=== PATIENT | male | born 1970 | race Caucasian/White ===

== ENCOUNTER 2018-05-27 08:46 | Emergency (ER) | payer SELFPAY ==
--- NOTE | 2018-05-27 09:11 | EDPHYS ---
Physician Documentation [facility] Name: Parth Jerez Age: 48 yrs Sex: Male : 1970 Arrival Date: 05/27/2018 Time: 08:48 Bed 5 Private MD: None, None ED Physician Ramses Zarate HPI: 05/27 09:29 This 48 yrs old Male presents to ER via Ambulatory with complaints of Cough, snw Ear Pain. 09:29 The patient or guardian reports cough, described as moderate, described as severe, with snw productive sputum. Onset: The symptoms/episode began/occurred suddenly, 1 day(s) ago, and became worse and became persistent. Severity of symptoms: At their worst the symptoms were moderate. Associated signs and symptoms: Pertinent positives: earache, lightheadedness. The patient has experienced similar episodes in the past. The patient has not recently seen a physician. Historical: - Allergies: 09:02 NKDA; ch - Home Meds: 09:02 None [Active]; ch - PMHx: :02 Pneumothorax; ruptured L upper lung when 19, had it removed; fall 30 feet, fx to L4L5; ch Back pain; - PSHx: 09:02 L4L5 fusion; L upper lobe removed; ch - Immunization history:: Adult Immunizations up to date, Last tetanus immunization: up to date Flu vaccine is not up to date. - Social history:: Smoking status: Patient uses tobacco products, smokes one pack cigarettes per day. Patient/guardian denies using alcohol, street drugs. - Ebola Screening: : Patient negative for fever greater than or equal to 101.5 degrees Fahrenheit, and additional compatible Ebola Virus Disease symptoms Patient denies exposure to infectious person Patient denies travel to an Ebola-affected area in the 21 days before illness onset No symptoms or risks identified at this time. ROS: 09:28 Constitutional: Negative for fever, chills, and weight loss, Eyes: Negative for injury, snw pain, redness, and discharge, Neck: Negative for injury, pain, and swelling, Cardiovascular: Negative for chest pain, palpitations, and edema, Abdomen/GI: Negative for abdominal pain, nausea, vomiting, diarrhea, and constipation, Back: Negative for injury and pain, : Negative for injury, bleeding, discharge, and swelling, MS/Extremity: Negative for injury and deformity, Skin: Negative for injury, rash, and discoloration, Neuro: Negative for headache, weakness, numbness, tingling, and seizure, Psych: Negative for depression, anxiety, suicide ideation, homicidal ideation, and hallucinations. 09:28 ENT: Positive for ear pain. 09:28 Respiratory: Positive for cough, shortness of breath, on exertion. wheezing. Exam: 09:25 Constitutional: This is a well developed, well nourished patient who is awake, alert, snw and in no acute distress. Head/Face: Normocephalic, atraumatic. Eyes: Pupils equal round and reactive to light, extra-ocular motions intact. Lids and lashes normal. Conjunctiva and sclera are non-icteric and not injected. Cornea within normal limits. Periorbital areas with no swelling, redness, or edema. 09:25 Neck: Trachea midline, no thyromegaly or masses palpated, and no cervical lymphadenopathy. Supple, full range of motion without nuchal rigidity, or vertebral point tenderness. No Meningismus. Chest/axilla: Normal chest wall appearance and motion. Nontender with no deformity. No lesions are appreciated. Cardiovascular: Regular rate and rhythm with a normal S1 and S2. No gallops, murmurs, or rubs. Normal PMI, no JVD. No pulse deficits. 09:25 Abdomen/GI: Soft, non-tender, with normal bowel sounds. No distension or tympany. No guarding or rebound. No evidence of tenderness throughout. Back: No spinal tenderness. No costovertebral tenderness. Full range of motion. Skin: Warm, dry with normal turgor. Normal color with no rashes, no lesions, and no evidence of cellulitis. MS/ Extremity: Pulses equal, no cyanosis. Neurovascular intact. Full, normal range of motion. Neuro: Awake and alert, GCS 15, oriented to person, place, time, and situation. Cranial nerves II-XII grossly intact. Motor strength 5/5 in all extremities. Sensory grossly intact. Cerebellar exam normal. Normal gait. 09:25 ENT: Ear canal(s): are normal, TM's: erythema, that is moderate, bilaterally, Nose: is normal, Mouth: is normal, Posterior pharynx: erythema, that is moderate, Voice: is normal. 09:25 Respiratory: the patient does not display signs of respiratory distress, Respirations: shallow respirations, Breath sounds: bronchial sounds, rhonchi, wet sounding cough. Vital Signs: 09:02 BP 129 / 89; Pulse 67; Resp 16; Temp 98.5(O); Pulse Ox 98% on R/A; Weight 136.08 kg; ch Height 6 ft. 2 in. (187.96 cm); Pain 6/10; 09:02 Body Mass Index 38.52 (136.08 kg, 187.96 cm) ch MDM: 09:10 Patient medically screened. snw 09:28 Data reviewed: vital signs, nurses notes. Data interpreted: Pulse oximetry: on room air snw is 98 %. Interpretation: normal. Counseling: I had a detailed discussion with the patient and/or guardian regarding: the historical points, exam findings, and any diagnostic results supporting the discharge/admit diagnosis, the presence of at least one elevated blood pressure reading (>120/80) during this emergency department visit, the need for outpatient follow up, to return to the emergency department if symptoms worsen or persist or if there are any questions or concerns that arise at home. Special discussion: I have referred the patient to see his PCP for further evaluation of high blood pressure. Based on the history and exam findings, there is no indication for further emergent testing or inpatient evaluation. I discussed with the patient/guardian the need to see the primary care provider for further evaluation of the symptoms. Administered Medications: 09:25 Drug: Rocephin (cefTRIAXone) 1 grams Route: IM; Site: right deltoid; sg :25 Drug: Zithromax 500 mg Route: PO; sg 09:31 Drug: Decadron 10 mg Route: PO; sg 09:31 Drug: Albuterol 2.5 mg Route: Inhalation; sg 09:32 Drug: Tussionex Pennkinetic ER 5 ml Route: PO; sg Disposition: 10:44 Co-signature as Attending Physician, Ramses Zarate MD I agree with the assessment and kdr plan of care. Disposition: 05/27/18 09:10 Discharged to Home. Impression: Unspecified bacterial pneumonia, Otitis media, unspecified, left ear. - Condition is Stable. - Discharge Instructions: Otitis Media, Adult, Hypertension, Community-Acquired Pneumonia, Adult, Steps to Quit Smoking. - Prescriptions for Tessalon Perles 100 mg Oral Capsule - take 1 capsule by ORAL route every 8 hours As needed; 15 capsule. Albuterol Sulfate 90 mcg/actuation - inhale 1-2 puff by INHALATION route every 4-6 hours; 1 Inhaler. Zithromax 500 mg Oral Tablet - take 1 tablet by ORAL route once daily for 5 days; 5 tablet. - Work release form, Medication Reconciliation Form, Thank You Letter, Antibiotic Education, Prescription Opioid Use form. - Follow up: Private Physician; When: 2 - 3 days; Reason: Recheck today's complaints, Continuance of care, Re-evaluation by your physician. Follow up: Emergency Department; When: As needed; Reason: Worsening of condition. Signatures: Zuleima Gomez RN RN Crow Baez RN RN sg Rasmes Zarate MD MD [facility] Giovanna Garcia, [employer]C [employer] Corrections: (The following items were deleted from the chart) 09:48 09:10 05/27/2018 09:10 Discharged to Home. Impression: Unspecified bacterial pneumonia; sg Otitis media, unspecified, left ear. Condition is Stable. Forms are Medication Reconciliation Form, Thank You Letter, Antibiotic Education, Prescription Opioid Use. Follow up: Private Physician; When: 2 - 3 days; Reason: Recheck today's complaints, Continuance of care, Re-evaluation by your physician. Follow up: Emergency Department; When: As needed; Reason: Worsening of condition. snw
--- NOTE | 2018-05-27 09:11 | ER ---
Nurse's Notes [facility] Name: Parth Jerez Age: 48 yrs Sex: Male : 1970 Arrival Date: 05/27/2018 Time: 08:48 Bed 5 Private MD: None, None Diagnosis: Unspecified bacterial pneumonia;Otitis media, unspecified, left ear Presentation: 05/27 08:58 Presenting complaint: Patient states: I think I have walking pneumonia, I feel crud in my chest, couging up some thick mucous for the past 2-3 days. last night started getting pain in my L ear, both ears feel very full, and I feel off balance. Transition of care: patient was not received from another setting of care. Onset of symptoms was May 23, 2018. Risk Assessment: Do you want to hurt yourself or someone else? Patient reports no desire to harm self or others. Initial Sepsis Screen: Does the patient meet any 2 criteria? No. Patient's initial sepsis screen is negative. Does the patient have a suspected source of infection? No. Patient's initial sepsis screen is negative. Care prior to arrival: None. 08:58 Method Of Arrival: Ambulatory 08:58 Acuity: [place] 3 Triage Assessment: 09:02 General: Appears in no apparent distress. comfortable, Behavior is calm, cooperative, appropriate for age. Pain: Complains of pain in left ear, left jaw, diaphragm, xyphoid area and left lateral aspect of neck Pain currently is 7 out of 10 on a pain scale. EENT: Reports pain in left ear. Historical: - Allergies: 09:02 NKDA; - Home Meds: 09:02 None [Active]; - PMHx: 09:02 Pneumothorax; ruptured L upper lung when 19, had it removed; fall 30 feet, fx to L4L5; Back pain; - PSHx: 09:02 L4L5 fusion; L upper lobe removed; - Immunization history:: Adult Immunizations up to date, Last tetanus immunization: up to date Flu vaccine is not up to date. - Social history:: Smoking status: Patient uses tobacco products, smokes one pack cigarettes per day. Patient/guardian denies using alcohol, street drugs. - Ebola Screening: : Patient negative for fever greater than or equal to 101.5 degrees Fahrenheit, and additional compatible Ebola Virus Disease symptoms Patient denies exposure to infectious person Patient denies travel to an Ebola-affected area in the 21 days before illness onset No symptoms or risks identified at this time. Screenin:15 Nutritional screening: No deficits noted. sg 09:15 Abuse screen: Denies threats or abuse. Denies injuries from another. Tuberculosis sg screening: No symptoms or risk factors identified. Never had TB. Fall Risk None identified. Assessment: 09:15 General: Appears in no apparent distress. comfortable, well groomed, well developed, sg well nourished, Behavior is calm, cooperative, appropriate for age. Pain: Complains of pain in back and diaphragm Quality of pain is described as burning. Neuro: Level of Consciousness is awake, alert, obeys commands, Oriented to person, place, time, Speech is normal, Facial symmetry appears normal. Cardiovascular: Heart tones S1 S2 present Capillary refill is brisk in bilateral fingers Patient's skin is warm and dry. Respiratory: Airway is patent Respiratory effort is even, unlabored, Respiratory pattern is regular, symmetrical, Breath sounds are coarse. Respiratory: Reports shortness of breath on exertion cough that is productive. GI: Abdomen is round non-distended, obese. : No signs and/or symptoms were reported regarding the genitourinary system. EENT: No signs and/or symptoms were reported regarding the EENT system. Derm: Skin is pink, warm \T\ dry. Musculoskeletal: No signs and/or symptoms reported regarding the musculoskeletal system. Vital Signs: 09:02 BP 129 / 89; Pulse 67; Resp 16; Temp 98.5(O); Pulse Ox 98% on R/A; Weight 136.08 kg; ch Height 6 ft. 2 in. (187.96 cm); Pain 6/10; 09:02 Body Mass Index 38.52 (136.08 kg, 187.96 cm) ED Course: 08:48 Patient arrived in ED. mr 08:49 None, None is Private Physician. mr 08:53 Crow Baez, CATHLEEN is Primary Nurse. sg 08:59 Giovanna Gracia FNP-C is PHCP. snw 08:59 Ramses Zarate MD is Attending Physician. snw 09:01 Triage completed. ch 09:02 Arm band placed on left wrist. Patient placed in an exam room, on a stretcher. ch 09:15 No provider procedures requiring assistance completed. Patient did not have IV access sg during this emergency room visit. Administered Medications: 09:25 Drug: Rocephin (cefTRIAXone) 1 grams Route: IM; Site: right deltoid; 09:25 Drug: Zithromax 500 mg Route: PO; 09:31 Drug: Decadron 10 mg Route: PO; 09:31 Drug: Albuterol 2.5 mg Route: Inhalation; 09:32 Drug: Tussionex Pennkinetic ER 5 ml Route: PO; Outcome: 09:10 Discharge ordered by MD. carbajal 09:48 Patient left the ED. Signatures: Zuleima Gomez, RN RN Crow Baez RN RN Giovanna Garcia, HOST AND HOSTESS-C [employer]OST [employer]OSTESS-Csnw Sloane Rodrigez
[2018-05-27] MEDS ORDERED: DEXAMETHASONE 4 MG TAB ONE (09:19)
[2018-05-27] MEDS ORDERED: ALBUTEROL 2.5 MG/3 ML NEB SOL ONE (09:19)
[2018-05-27] MEDS ORDERED: AZITHROMYCIN 250 MG TAB ONE (09:19)
[2018-05-27] MEDS ORDERED: LIDOCAINE 1% MPF 2 ML AMPULE ONE (09:20)
[2018-05-27] MEDS ORDERED: HYDROCODONE/CHLORPHEN 5 ML/OSYR ONE (09:20)
[2018-05-27] MEDS ORDERED: CEFTRIAXONE 1000 MG/VIAL ONE (09:20)
[2018-05-27 09:53] VITALS: BP 129/89; TEMP 98.5; O2SAT 98
== END 2018-05-27 09:48 | disposition home or self-care (01) ==
LOC: ER 08:46
DX: H66.92 Otitis media, unspecified, left ear (principal); J15.9 Unspecified bacterial pneumonia; F17.210 Nicotine dependence, cigarettes, uncomplicated
CPT/HCPCS: 96372; 99284; J2001

== ENCOUNTER 2018-09-10 15:05 | Emergency (ER) | payer SELFPAY ==
[2018-09-10] MEDS ORDERED: MORPHINE 4 MG/ML SYR ONE (16:16)
[2018-09-10 16:23] LABS: Absolute Monocytes 0.7 K/uL (0.1-1.3); Absolute Neutrophil 4.7 K/uL (1.8-8.0); Eosinophils % 2.9 % (0-4.4); Hematocrit 44.2 % (39.6-49.0); Lymphocytes % 26.4 % (15.3-44.8); MCH 30.5 pg (27.0-35.0); MCV 87.7 fL (80-100); MPV 9.2 fL (7.6-11.3); Monocytes % 8.8 % (3.3-12.3); RBC Red Blood Cell Count 5.04 M/uL (4.33-5.43)
--- NOTE | 2018-09-10 16:33 | RAD REPORT ---
EXAM DESCRIPTION: Tyra Peterson (2 Views)09/10/2018 4:24 pm CLINICAL HISTORY: Chest pain COMPARISON: September 2017 FINDINGS: The lungs appear clear of acute infiltrate. The heart is normal size IMPRESSION: No acute abnormalities displayed
[2018-09-10 16:43] LABS: BUN Blood Urea Nitrogen 13 mg/dL (7-18); Bicarbonate 26 mmol/L (21-32); Glucose Level 105 mg/dL (74-106); Magnesium 2.1 mg/dL (1.8-2.4); NT PRO-BNP 6 pg/mL (<125); Potassium 3.9 mmol/L (3.5-5.1); Sodium Level 140 mmol/L (136-145); Troponin (Emerg Dept Use Only) < 0.02 ng/mL (0.0-0.045)
[2018-09-10] MEDS ORDERED: MEPERIDINE HCL 50 MG/ML AMP ONE (17:07)
--- NOTE | 2018-09-10 17:30 | RAD REPORT ---
EXAM DESCRIPTION: CT - Chest For Pe Angio - 09/10/2018 5:20 pm CLINICAL HISTORY: Chest pain COMPARISON: 2015 TECHNIQUE: Dynamically enhanced axial 3 mm thick images of the chest were obtained during administra tion of <100> mL Isovue 370 IV contrast. Coronal and oblique reconstruction images were generated and reviewed. Exam utilizes a protocol for optimal evaluation of pulmonary arterial tree. Maximum intensity projections 3D imaging was utilized All CT scans are performed using dose optimization technique as appropriate and may include automated exposure control or mA/KV adjustment according to patient size. FINDINGS: A pulmonary embolus is not seen. A thoracic aortic aneurysm is not noted. A pleural effusion is not seen. A pericardial effusion is not seen. A lung consolidation is not present. IMPRESSION: Negative for a pulmonary embolism.
--- NOTE | 2018-09-10 17:54 | EDPHYS ---
Physician Documentation [facility] Name: Parth Jerez Age: 48 yrs Sex: Male : 1970 Arrival Date: 09/10/2018 Time: 15:07 Bed 14 Private MD: ED Physician Franklin Shah HPI: 09/10 16:22 This 48 yrs old Male presents to ER via Ambulatory with complaints of rn Breathing Difficulty. 16:22 The patient or guardian reports chest pain that is located primarily in the anterior rn chest wall, left. Onset: this morning. The pain does not radiate. The chest pain is described as sharp, stabbing. Modifying factors: The symptoms are alleviated by nothing. the symptoms are aggravated by activity, deep breath. Severity of pain: At its worst the pain was moderate in the emergency department the pain is unchanged. The patient has experienced a previous episode. Reports left sided chest pain, "feels like when [he] had pleurisy", no fever, + smoker, no trauma, hurts to take deep breath and move. . Historical: - Allergies: 15:18 NKDA; aa5 - PMHx: 15:18 Back pain; fall 30 feet, fx to L4L5; Pneumothorax; ruptured L upper lung when 19, had aa5 it removed; - PSHx: 15:18 L4L5 fusion; L upper lobe removed; aa5 - Immunization history:: Flu vaccine is not up to date. - Social history:: Smoking status: Patient uses tobacco products, 4-5 cigarettes a day . - Ebola Screening: : No symptoms or risks identified at this time. - Family history:: not pertinent. - Hospitalizations: : No recent hospitalization is reported. ROS: 16:22 Constitutional: Negative for fever, chills, and weight loss, Eyes: Negative for injury, rn pain, redness, and discharge, Cardiovascular: + chest pain Respiratory: + pleuritic chest pain Abdomen/GI: Negative for abdominal pain, nausea, vomiting, diarrhea, and constipation, MS/Extremity: Negative for injury and deformity, Skin: Negative for injury, rash, and discoloration, Neuro: Negative for headache, weakness, numbness, tingling, and seizure. Exam: 16:22 Constitutional: This is a well developed, well nourished patient who is awake, alert, rn appears uncomfortable, splinting left side Head/Face: Normocephalic, atraumatic. Eyes: Pupils equal round and reactive to light, extra-ocular motions intact. Lids and lashes normal. Conjunctiva and sclera are non-icteric and not injected. Cornea within normal limits. Periorbital areas with no swelling, redness, or edema. Cardiovascular: Regular rate and rhythm with a normal S1 and S2. No gallops, murmurs, or rubs. Normal PMI, no JVD. No pulse deficits. Respiratory: Lungs have equal breath sounds bilaterally, clear to auscultation, no wheezing, + splinting left side Abdomen/GI: soft, non-tender MS/ Extremity: Pulses equal, no cyanosis. Neurovascular intact. Full, normal range of motion. Equal circumference. Neuro: Awake and alert, GCS 15, oriented to person, place, time, and situation. Cranial nerves II-XII grossly intact. Motor strength 5/5 in all extremities. Sensory grossly intact. Vital Signs: 15:19 BP 141 / 85; Pulse 77; Resp 20 S; Temp 99.0(O); Pulse Ox 96% on R/A; Weight 129.73 kg aa5 (R); Height 6 ft. 2 in. (187.96 cm) (R); Pain 10/10; 16:15 BP 128 / 82; Pulse 72; Resp 14; Pulse Ox 96% on R/A; bp 17:02 BP 126 / 87; Pulse 76; Resp 14; Pulse Ox 97% ; bp 15:19 Body Mass Index 36.72 (129.73 kg, 187.96 cm) aa5 MDM: 15:22 Patient medically screened. rn 17:50 Differential diagnosis: acute pericarditis, anxiety, coronary artery disease chest wall rn pain, costochondritis, gastroesophageal reflux disease (GERD), pancreatitis, pericarditis, pleurisy, pneumonia, pneumothorax, pulmonary embolus. Data reviewed: vital signs, nurses notes, lab test result(s), EKG, radiologic studies, CT scan, plain films, and as a result, I will discharge patient. Counseling: I had a detailed discussion with the patient and/or guardian regarding: the historical points, exam findings, and any diagnostic results supporting the discharge/admit diagnosis, lab results, radiology results, the need for outpatient follow up, to return to the emergency department if symptoms worsen or persist or if there are any questions or concerns that arise at home. Counseling: I had a detailed discussion with the patient and/or guardian regarding: smoking cessation. Response to treatment: the patient's symptoms have markedly improved after treatment, and as a result, I will discharge patient. Special discussion: I discussed with the patient/guardian in detail that at this point there is no indication for admission to the hospital. It is understood, however, that if the symptoms persist or worsen the patient needs to return immediately for re-evaluation. 09/10 15:29 Order name: Blood Culture Adult (2) rn 09/10 15:29 Order name: BMP; Complete Time: 16:58 rn 09/10 15:29 Order name: CBC with Diff; Complete Time: 16:37 rn 09/10 15:29 Order name: Magnesium; Complete Time: 16:58 rn 09/10 15:29 Order name: NT PRO-BNP; Complete Time: 16:58 09/10 15:29 Order name: Troponin (emerg Dept Use Only); Complete Time: 16:58 rn 09/10 15:29 Order name: XRAY Chest Pa And Lat (2 Views); Complete Time: 16:37 rn 12 15:29 Order name: Flu; Complete Time: 16:58 rn 12 16:58 Order name: CT Chest For PE Angio; Complete Time: 17:34 rn 12 15:29 Order name: EKG; Complete Time: 15:29 rn 09/10 15:29 Order name: Cardiac monitoring; Complete Time: 16:29 rn 09/10 15:29 Order name: EKG - Nurse/Tech; Complete Time: 15:35 rn 09/10 15:29 Order name: IV Saline Lock; Complete Time: 16:29 rn 09/10 15:29 Order name: Labs collected and sent; Complete Time: 16:30 rn 12 15:29 Order name: O2 Per Protocol; Complete Time: 16:30 rn 12 15:29 Order name: O2 Sat Monitoring; Complete Time: 16:30 rn Administered Medications: 15:45 Drug: morphine 4 mg Route: IVP; Site: left wrist; bp 16:29 Follow up: Response: Pain is decreased bp 17:01 Drug: Demerol 50 mg Route: IVP; Site: left wrist; bp 18:23 Follow up: Response: Pain is decreased bp 17:45 Drug: TORadol 30 mg Route: IVP; Site: left wrist; bp 18:25 Follow up: Response: Pain is decreased bp 17:50 Drug: Decadron - Dexamethasone 10 mg Route: IVP; Site: left wrist; bp 18:24 Follow up: Response: Pain is decreased bp 17:50 Drug: Demerol 25 mg Route: IVP; Site: left wrist; bp 18:23 Follow up: Response: Pain is decreased bp Disposition: 09/10/18 17:54 Discharged to Home. Impression: Pleurisy. - Condition is Stable. - Discharge Instructions: Pleurisy. - Prescriptions for Ibuprofen 800 mg Oral Tablet - take 1 tablet by ORAL route every 12 hours As needed take with food; 20 tablet. Tylenol- Codeine #3 300-30 mg Oral Tablet - take 1 tablet by ORAL route every 6 hours As needed; 20 tablet. Medrol (Carlos) 4 mg Oral Tablets, Dose Pack - take 1 tablet by ORAL route as directed - follow package instructions; 1 packet. - Medication Reconciliation Form, Thank You Letter, Antibiotic Education, Prescription Opioid Use form. - Follow up: Private Physician; When: As needed; Reason: Recheck today's complaints, Re-evaluation by your physician. - Problem is new. - Symptoms have improved. Signatures: Dispatcher [employer] EDMS Franklin Shah MD MD rn Calderon, Audri, RN RN aa5 Manjeet Delong RN RN bp Corrections: (The following items were deleted from the chart) 16:26 16:22 Constitutional: This is a well developed, well nourished patient who is awake, rn alert, appears uncomfortable, splinting left side rn 18:36 17:54 09/10/2018 17:54 Discharged to Home. Impression: Pleurisy. Condition is Stable. bp Forms are Medication Reconciliation Form, Thank You Letter, Antibiotic Education, Prescription Opioid Use. Follow up: Private Physician; When: As needed; Reason: Recheck today's complaints, Re-evaluation by your physician. Problem is new. Symptoms have improved. rn
--- NOTE | 2018-09-10 17:54 | ER ---
Nurse's Notes [facility] Name: Parth Jerez Age: 48 yrs Sex: Male : 1970 Arrival Date: 09/10/2018 Time: 15:07 Bed 14 Private MD: Diagnosis: Pleurisy Presentation: 09/10 15:17 Presenting complaint: Patient states: "I just got up to do some dishes and I got this aa5 pain on my left lung and rib cage and I can't take a deep breath because it hurts too bad". Pt reports SOB and cough. Transition of care: patient was not received from another setting of care. Onset of symptoms was September 10, 2018. Risk Assessment: Do you want to hurt yourself or someone else? Patient reports no desire to harm self or others. Initial Sepsis Screen: Does the patient meet any 2 criteria? No. Patient's initial sepsis screen is negative. Does the patient have a suspected source of infection? No. Patient's initial sepsis screen is negative. Care prior to arrival: None. 15:17 Method Of Arrival: Ambulatory aa5 15:17 Acuity: CARMENCITA 2 aa5 Triage Assessment: 18:30 General: Appears in no apparent distress. uncomfortable, Behavior is Smells of. bp Respiratory: Reports pain with respiration Airway is patent Onset: The symptoms/episode began/occurred at an unknown time. the patient has moderate shortness of breath. Historical: - Allergies: 15:18 NKDA; aa5 - PMHx: 15:18 Back pain; fall 30 feet, fx to L4L5; Pneumothorax; ruptured L upper lung when 19, had aa5 it removed; - PSHx: 15:18 L4L5 fusion; L upper lobe removed; aa5 - Immunization history:: Flu vaccine is not up to date. - Social history:: Smoking status: Patient uses tobacco products, 4-5 cigarettes a day . - Ebola Screening: : No symptoms or risks identified at this time. - Family history:: not pertinent. - Hospitalizations: : No recent hospitalization is reported. Screenin:20 Abuse screen: Denies threats or abuse. Denies injuries from another. Nutritional bp screening: No deficits noted. Tuberculosis screening: No symptoms or risk factors identified. Fall Risk None identified. Assessment: 15:20 General: Appears in no apparent distress. uncomfortable, obese, Behavior is calm, bp cooperative, appropriate for age. Pain: Complains of pain in left lateral anterior chest and left lateral posterior chest. Cardiovascular: Rhythm is sinus rhythm. Respiratory: Airway is patent Respiratory effort is even, unlabored, Respiratory pattern is regular, symmetrical, Breath sounds with crackles. GI: No signs and/or symptoms were reported involving the gastrointestinal system. : No signs and/or symptoms were reported regarding the genitourinary system. EENT: No deficits noted. Derm: No deficits noted. Musculoskeletal: Circulation, motion, and sensation intact. Range of motion: intact in all extremities. 16:26 Reassessment: PT RETURNED FROM RAD. ALL CURRENT ORDERS IN PROCESS. bp 17:02 Reassessment: CT PE PENDING, VS STABLE ON MONITOR. bp 18:26 Reassessment: PT D/C HOME AMBULATORY WITH FAMILY, DX WITH PLEURISY. bp Vital Signs: 15:19 BP 141 / 85; Pulse 77; Resp 20 S; Temp 99.0(O); Pulse Ox 96% on R/A; Weight 129.73 kg aa5 (R); Height 6 ft. 2 in. (187.96 cm) (R); Pain 10/10; 16:15 BP 128 / 82; Pulse 72; Resp 14; Pulse Ox 96% on R/A; bp 17:02 BP 126 / 87; Pulse 76; Resp 14; Pulse Ox 97% ; bp 15:19 Body Mass Index 36.72 (129.73 kg, 187.96 cm) aa5 ED Course: 15:07 Patient arrived in ED. mr 15:18 Triage completed. aa5 15:18 Arm band placed on. aa5 15:20 Patient has correct armband on for positive identification. Placed in gown. Bed in low bp position. Call light in reach. Side rails up X2. 15:22 Manjeet Delong, RN is Primary Nurse. bp 15:22 Franklin Shah MD is Attending Physician. rn 15:45 Inserted saline lock: 20 gauge in left wrist, using aseptic technique. Blood collected. bp 16:02 EKG done, by orthodontic laboratory technician. reviewed by Franklin Shah MD. sm3 16:19 XRAY Chest Pa And Lat (2 Views) In Process Unspecified. EDMS 17:20 CT Chest For PE Angio In Process Unspecified. EDMS 17:20 CT completed. Patient tolerated procedure well. Patient moved to CT. Patient moved back ak from CT. 18:26 No provider procedures requiring assistance completed. IV discontinued, intact, bp bleeding controlled, No redness/swelling at site. Pressure dressing applied. Administered Medications: 15:45 Drug: morphine 4 mg Route: IVP; Site: left wrist; bp 16:29 Follow up: Response: Pain is decreased bp 17:01 Drug: Demerol 50 mg Route: IVP; Site: left wrist; bp 18:23 Follow up: Response: Pain is decreased bp 17:45 Drug: TORadol 30 mg Route: IVP; Site: left wrist; bp 18:25 Follow up: Response: Pain is decreased bp 17:50 Drug: Decadron - Dexamethasone 10 mg Route: IVP; Site: left wrist; bp 18:24 Follow up: Response: Pain is decreased bp 17:50 Drug: Demerol 25 mg Route: IVP; Site: left wrist; bp 18:23 Follow up: Response: Pain is decreased bp Outcome: 17:54 Discharge ordered by . rn 18:27 Discharged to home ambulatory, with family. bp 18:27 Condition: stable 18:27 Discharge instructions given to patient, Instructed on discharge instructions, follow up and referral plans. medication usage, Demonstrated understanding of instructions, follow-up care, medications, Prescriptions given X 3. 18:36 Patient left the ED. bp Signatures: Dispatcher [employer] Radha Oneal Roman, MD MD rn Calderon, Audri RN RN aa5 Khalif Rossi Brian, RN RN Amparo Pickering 3 Corrections: (The following items were deleted from the chart) 15:19 15:17 Acuity: CARMENCITA 3 aa5 aa5
[2018-09-10] MEDS ORDERED: KETOROLAC 30 MG/ML INJ ONE (17:58)
[2018-09-10] MEDS ORDERED: MEPERIDINE HCL 25 MG/0.5 ML ONE (18:00)
[2018-09-10] MEDS ORDERED: DEXAMETHASONE 10 MG/ML VIAL ONE (18:00)
[2018-09-10 18:56] VITALS: TEMP 99
[2018-09-10 18:57] VITALS: BP 126/87; O2SAT 97
--- NOTE | 2018-09-11 05:14 | EKG ---
Test Date: 2018-09-10 Test Time: 15:39:14 Promotional Marketing Agent: TRACY MEASUREMENT RESULTS: Intervals: Rate: 73 NV: 162 QRSD: 114 QT: 390 QTc: 429 [place]: P: 58 NV: 162 QRS: 49 T: 61 INTERPRETIVE STATEMENTS: Normal sinus rhythm Normal ECG Compared to ECG 10/30/2017 10:26:10 No significant changes Electronically Signed On 09-11-18 05:14:35 DIETARY AIDE by Cameron Vallejo
== END 2018-09-10 18:36 | disposition home or self-care (01) ==
LOC: ER 15:05
DX: R09.1 Pleurisy (principal); F17.210 Nicotine dependence, cigarettes, uncomplicated
CPT/HCPCS: 36415; 71046; 71275; 80048; 83735; 83880; 84484; 85025; 87040; 87804; 93005; 96374; 96375; 99285; J1100; J2175; Q9967

== ENCOUNTER 2018-09-27 14:29 | Emergency (ER) | payer SELFPAY ==
[2018-09-27] MEDS ORDERED: MORPHINE 4 MG/ML SYR ONE (16:15)
[2018-09-27] MEDS ORDERED: LIDOCAINE 1% W/EPI 1:100,000 MDV 50 ML VIAL ONE (16:15)
--- NOTE | 2018-09-27 16:47 | EDPHYS ---
Physician Documentation [facility] Name: Parth Jerez Age: 48 yrs Sex: Male : 1970 Arrival Date: 09/27/2018 Time: 14:34 Bed 8 Private MD: ED Physician Lizbeth Randolph HPI: 09/27 15:53 This 48 yrs old Male presents to ER via Ambulatory with complaints of Abscess.ma2 15:53 The patient presents with an abscess of the buttocks. Onset: The symptoms/episode ma2 began/occurred gradually, 2 day(s) ago. Possible cause(s): unknown. Associated signs and symptoms: Pertinent positives: swelling, Pertinent negatives: erythema, fever, nausea. Severity of symptoms: At their worst the symptoms were moderate, in the emergency department the symptoms are unchanged. The patient has not experienced similar symptoms in the past. Historical: - Allergies: 14:42 NKDA; sv - PMHx: 14:42 Back pain; fall 30 feet, fx to L4L5; Pneumothorax; ruptured L upper lung when 19, had sv it removed; - PSHx: 14:42 L4L5 fusion; L upper lobe removed; sv - Immunization history:: Flu vaccine is not up to date. - Social history:: Smoking status: Patient uses tobacco products, denies chronic smoking, but will smoke occasionally, Patient/guardian denies using alcohol, street drugs, The patient lives with family. - Ebola Screening: : No symptoms or risks identified at this time. - Family history:: not pertinent. ROS: 15:53 Constitutional: Negative for fever, chills, and weight loss, Cardiovascular: Negative ma2 for chest pain, palpitations, and edema, Respiratory: Negative for shortness of breath, cough, wheezing, and pleuritic chest pain, Abdomen/GI: Negative for abdominal pain, nausea, diarrhea, and constipation. 15:53 Back: Positive for Negative for decreased range of motion, pain with movement, acute changes. 15:53 All other systems are negative. Exam: 15:53 Constitutional: This is a well developed, well nourished patient who is awake, alert, ma2 and in no acute distress. Chest/axilla: Normal chest wall appearance and motion. Nontender with no deformity. No lesions are appreciated. Cardiovascular: Regular rate and rhythm with a normal S1 and S2. No gallops, murmurs, or rubs. Normal PMI, no JVD. No pulse deficits. Respiratory: Lungs have equal breath sounds bilaterally, clear to auscultation and percussion. No rales, rhonchi or wheezes noted. No increased work of breathing, no retractions or nasal flaring. 15:53 Back: sacral abscess + fluctuance and cellulitis 3x3 cm . Vital Signs: 14:42 BP 114 / 94; Pulse 78; Resp 22; Pulse Ox 99% ; Weight 127.01 kg; Height 6 ft. 2 in. sv (187.96 cm); Pain 10/10; 17:00 BP 119 / 75; Pulse 69; Resp 18; Pulse Ox 95% on R/A; Pain 7/10; tw2 17:14 BP 123 / 76; Pulse 77; Resp 19; Pulse Ox 99% on R/A; tw2 14:42 Body Mass Index 35.95 (127.01 kg, 187.96 cm) sv Procedures: 15:53 I \T\ D: Incision and drainage was performed for an abscess of the perianal area. Prepped ma2 with Betadine, Anesthetized with ml's 2% Lidocaine with epinephrine. 10 ml's 2% Lidocaine with epinephrine. Incised with #11 blade. Packed with sterile gauze, Dressing: sterile 4x4 gauze, the patient tolerated the procedure well. MDM: 15:27 Patient medically screened. [facility] 15:53 Differential diagnosis: abscess, cellulitis, insect bite. [facility] 16:44 Data reviewed: vital signs, nurses notes. Counseling: I had a detailed discussion with [facility] the patient and/or guardian regarding: the historical points, exam findings, and any diagnostic results supporting the discharge/admit diagnosis, the presence of at least one elevated blood pressure reading (>120/80) during this emergency department visit, the need for outpatient follow up. Response to treatment: the patient's symptoms have markedly improved after treatment. 09/27 16:48 Order name: Wound Culture sg 09/27 15:58 Order name: Dressing - Wound; Complete Time: 16:54 [facility] 09/27 15:58 Order name: Gloves, Sterile; Complete Time: 16:13 [facility] 09/27 15:58 Order name: I\T\D Setup; Complete Time: 16:13 [facility] 09/27 15:58 Order name: Tc; Complete Time: 16:13 ma2 Administered Medications: 16:16 Drug: morphine 4 mg Route: IM; Site: left gluteus; tw2 17:00 Follow up: Response: No adverse reaction; Pain is decreased tw2 16:50 Drug: Lidocaine-Epinephrine -1%: (1:100,000) 10 ml {Note: via dr. randolph.} Volume: 20 tw2 ml; Route: Infiltration; Disposition: 09/27/18 16:47 Discharged to Home. Impression: Cutaneous abscess of buttock. - Condition is Stable. - Discharge Instructions: Incision and Drainage, Care After. - Prescriptions for Clindamycin HCl 300 mg Oral Capsule - take 1 capsule by ORAL route every 6 hours for 10 days; 40 capsule. Tylenol- Codeine #3 300-30 mg Oral Tablet - take 2 tablet by ORAL route every 6 hours As needed; 30 tablet. Bactrim DS 800- 160 mg Oral Tablet - take 1 tablet by ORAL route every 12 hours for 10 days; 20 tablet. - Work release form, Medication Reconciliation Form, Thank You Letter, Antibiotic Education, Prescription Opioid Use form. - Follow up: Private Physician; When: Tomorrow; Reason: Continuance of care. Signatures: Dispatcher [employer] Chey Pickard RN RN Lucy Pierre RN RN 2 Lizbeth Randolph MD MD ca2 Corrections: (The following items were deleted from the chart) 17:16 16:47 09/27/2018 16:47 Discharged to Home. Impression: Cutaneous abscess of buttock. tw2 Condition is Stable. Forms are Medication Reconciliation Form, Thank You Letter, Antibiotic Education, Prescription Opioid Use. Follow up: Private Physician; When: Tomorrow; Reason: Continuance of care. ma2
--- NOTE | 2018-09-27 16:47 | ER ---
Nurse's Notes [facility] Name: Parht Jerez Age: 48 yrs Sex: Male : 1970 Arrival Date: 09/27/2018 Time: 14:34 Bed 8 Private MD: Diagnosis: Cutaneous abscess of buttock Presentation: 09/27 14:41 Presenting complaint: Patient states: buttocks abscess started yesterday. Denies sv lancing on his own. Transition of care: patient was not received from another setting of care. Onset of symptoms was September 26, 2018. Care prior to arrival: None. 14:41 Method Of Arrival: Ambulatory sv 14:41 Acuity: CARMENCITA 3 sv 16:55 Risk Assessment: Do you want to hurt yourself or someone else? Patient reports no tw2 desire to harm self or others. Initial Sepsis Screen: Does the patient meet any 2 criteria? No. Patient's initial sepsis screen is negative. Does the patient have a suspected source of infection? Yes: Skin breakdown/wound. Triage Assessment: 14:41 General: Appears uncomfortable, Behavior is cooperative, restless. Pain: Complains of sv pain in buttocks Pain currently is 10 out of 10 on a pain scale. Neuro: Level of Consciousness is awake, alert, obeys commands, Oriented to person, place, time, situation, Moves all extremities. Full function Gait is steady, Speech is normal. Respiratory: Respiratory effort is even, unlabored, Respiratory pattern is regular, symmetrical. Derm: Reports pain. Historical: - Allergies: 14:42 NKDA; sv - PMHx: 14:42 Back pain; fall 30 feet, fx to L4L5; Pneumothorax; ruptured L upper lung when 19, had sv it removed; - PSHx: 14:42 L4L5 fusion; L upper lobe removed; sv - Immunization history:: Flu vaccine is not up to date. - Social history:: Smoking status: Patient uses tobacco products, denies chronic smoking, but will smoke occasionally, Patient/guardian denies using alcohol, street drugs, The patient lives with family. - Ebola Screening: : No symptoms or risks identified at this time. - Family history:: not pertinent. Screenin:55 Abuse screen: Denies threats or abuse. Nutritional screening: No deficits noted. tw2 Tuberculosis screening: No symptoms or risk factors identified. Fall Risk None identified. Assessment: 16:55 General: Appears in no apparent distress. obese, unkempt, Behavior is calm, tw2 cooperative, appropriate for age. Pain: Complains of pain in coccyx. Neuro: Level of Consciousness is awake, alert, obeys commands, Oriented to person, place, time, situation. Cardiovascular: Capillary refill < 3 seconds. Respiratory: Airway is patent Respiratory effort is even, unlabored, Respiratory pattern is regular, symmetrical. GI: No signs and/or symptoms were reported involving the gastrointestinal system. : No signs and/or symptoms were reported regarding the genitourinary system. EENT: No signs and/or symptoms were reported regarding the EENT system. Derm: No signs and/or symptoms reported regarding the dermatologic system. Abscess located on coccyx. Musculoskeletal: Range of motion: intact in all extremities. 17:15 Reassessment: Patient appears in no apparent distress at this time. Patient and/or tw2 family updated on plan of care and expected duration. Pain level reassessed. Patient is alert, oriented x 3, equal unlabored respirations, skin warm/dry/pink. Patient states feeling better. Vital Signs: 14:42 BP 114 / 94; Pulse 78; Resp 22; Pulse Ox 99% ; Weight 127.01 kg; Height 6 ft. 2 in. sv (187.96 cm); Pain 10/10; 17:00 BP 119 / 75; Pulse 69; Resp 18; Pulse Ox 95% on R/A; Pain 7/10; tw2 17:14 BP 123 / 76; Pulse 77; Resp 19; Pulse Ox 99% on R/A; tw2 14:42 Body Mass Index 35.95 (127.01 kg, 187.96 cm) sv ED Course: 14:34 Patient arrived in ED. sb2 14:42 Triage completed. sv 14:42 Arm band placed on Patient placed in waiting room, Patient notified of wait time. sv 15:26 Lizbeth Randolph MD is Attending Physician. ma2 15:33 Lucy Pierre, CATHLEEN is Primary Nurse. tw2 16:50 Assist provider with I \T\ D: of an abscess on pilonidal cyst Performed by Lizbeth tw2 Melonie LUNA Patient tolerated well. Patient did not have IV access during this emergency room visit. 16:54 Wound Culture Sent. ag 16:55 Placed in gown. Bed in low position. Adult w/ patient. Pulse ox on. NIBP on. Warm tw2 blanket given. Administered Medications: 16:16 Drug: morphine 4 mg Route: IM; Site: left gluteus; tw2 17:00 Follow up: Response: No adverse reaction; Pain is decreased tw2 16:50 Drug: Lidocaine-Epinephrine -1%: (1:100,000) 10 ml {Note: via dr. randolph.} Volume: 20 tw2 ml; Route: Infiltration; Outcome: 16:47 Discharge ordered by . ma2 17:15 Discharged to home ambulatory, with significant other. tw2 17:15 Condition: stable 17:15 Discharge instructions given to patient, significant other, Instructed on discharge instructions, follow up and referral plans. no drinking with medication, no driving heavy equipment, medication usage, wound care, Demonstrated understanding of instructions, follow-up care, medications, wound care, Prescriptions given X 3. 17:16 Patient left the ED. tw2 Signatures: Chey Palmer RN RN sv Gallardo, Ana ag Wise, Tara, RN RN 2 Lizbeth Randolph MD MD mt2 Jennifer Mary 2
[2018-09-27 17:23] VITALS: BP 123/76; O2SAT 99
== END 2018-09-27 17:16 | disposition home or self-care (01) ==
LOC: ER 14:29
PROC: 0D9Q3ZZ Drainage of Anus, Percutaneous Approach (ICD-10-PCS; principal; 2018-09-27)
DX: L02.31 Cutaneous abscess of buttock (principal); L03.317 Cellulitis of buttock; Z72.0 Tobacco use
CPT/HCPCS: 87070; 87205; 96372; 99284

== ENCOUNTER 2019-11-10 15:27 | Emergency (ER) | payer SELFPAY ==
[2019-11-10] MEDS ORDERED: MORPHINE 2 MG/ML SYR ONE (16:28)
[2019-11-10] MEDS ORDERED: MORPHINE 4 MG/ML SYR ONE (16:28)
[2019-11-10] MEDS ORDERED: ONDANSETRON 4 MG (ODT) TAB ONE (16:29)
[2019-11-10] MEDS ORDERED: LIDOCAINE 4% PATCH ONE (16:29)
[2019-11-10] MEDS ORDERED: dexAMETHasone 4 MG/ML VIAL ONE (17:03)
--- NOTE | 2019-11-10 17:42 | RAD REPORT ---
EXAM DESCRIPTION: RAD - Lumbar Spine 3 Views - 11/10/2019 5:32 pm CLINICAL HISTORY: Back pain FINDINGS: Fusion involves L4 through S1 by pedicular screws united by rods, anterior plates and scr ews Alignment of lumbar spine is satisfactory. No fractures seen. Mild spondylosis
--- NOTE | 2019-11-10 18:07 | ER ---
Nurse's Notes [facility] Name: Parth Jerez Age: 49 yrs Sex: Male : 1970 Arrival Date: 11/10/2019 Time: 15:34 Bed 28 Private MD: Diagnosis: Low back pain Presentation: 11/10 16:05 Presenting complaint: Patient states: At work yesterday, lifted 60 pound bag of jl7 potatoes, twisted to the left and felt a pop and reports increasing pain over the last day. Took 400 mg ibuprofen at 1300 with no decrease in pain. Transition of care: patient was not received from another setting of care. Onset of symptoms was November 09, 2019. Risk Assessment: Do you want to hurt yourself or someone else? Patient reports no desire to harm self or others. Initial Sepsis Screen: Does the patient meet any 2 criteria? No. Patient's initial sepsis screen is negative. Does the patient have a suspected source of infection? No. Patient's initial sepsis screen is negative. Care prior to arrival: Medication(s) given: Motrin, 400 mg, at 1300. 16:05 Method Of Arrival: Ambulatory jl7 16:05 Acuity: CARMENCITA 3 jl7 Triage Assessment: 16:05 General: Appears in no apparent distress. uncomfortable, Behavior is calm, cooperative, jl7 appropriate for age. Pain: Complains of pain in mid back area Pain currently is 10 out of 10 on a pain scale. Historical: - Allergies: 16:08 NKDA; jl7 - Home Meds: 16:08 None [Active]; jl7 - PMHx: 16:08 Back pain; fall 30 feet, fx to L4L5; Pneumothorax; ruptured L upper lung when 19, had jl7 it removed; - PSHx: 16:08 L upper lobe removed; L4L5 fusion; Cholecystectomy; jl7 - Immunization history:: Adult Immunizations not up to date. - Coronavirus screen:: The patient has NOT traveled to [place] in the past 14 days. Proceed with normal triage process as indicated. - Social history:: Smoking status: Patient reports the use of cigarette tobacco products, smokes one-half pack cigarettes per day. - Ebola Screening: : No symptoms or risks identified at this time. Screenin:38 Abuse screen: Denies threats or abuse. Denies injuries from another. Nutritional ls4 screening: No deficits noted. Tuberculosis screening: No symptoms or risk factors identified. Fall Risk None identified. Assessment: 17:00 Reassessment: Patient appears in no apparent distress at this time. No changes from ls4 previously documented assessment. Patient and/or family updated on plan of care and expected duration. Pain level reassessed. Patient is alert, oriented x 3, equal unlabored respirations, skin warm/dry/pink. 18:00 Reassessment: Patient appears in no apparent distress at this time. No changes from ls4 previously documented assessment. Patient and/or family updated on plan of care and expected duration. Pain level reassessed. Patient is alert, oriented x 3, equal unlabored respirations, skin warm/dry/pink. Vital Signs: 16:05 BP 133 / 90; Pulse 61; Resp 19 S; Temp 98.3(O); Pulse Ox 98% on R/A; Weight 147.42 kg jl7 (R); Height 6 ft. 2 in. (187.96 cm) (R); Pain 10/10; 18:41 BP 128 / 78; Pulse 62; Resp 16; Temp 98.3; Pulse Ox 98% on R/A; Pain 3/10; ls4 16:05 Body Mass Index 41.73 (147.42 kg, 187.96 cm) jl7 ED Course: 15:34 Patient arrived in ED. as 16:05 Arm band placed on right wrist. jl7 16:08 Triage completed. jl7 16:11 David Ortega NP is PHCP. pm1 16:11 lEroy Ortiz MD is Attending Physician. pm1 16:21 Ana Damico, CATHLEEN is Primary Nurse. ls4 16:38 Patient has correct armband on for positive identification. Bed in low position. Call ls4 light in reach. Side rails up X 1. 16:38 No provider procedures requiring assistance completed. ls4 18:09 Lumbar Spine (3 Views) XRAY Sent. ls4 18:37 Patient did not have IV access during this emergency room visit. ls4 Administered Medications: 16:25 Drug: Lidoderm 5 % (700 mg/patch) 1 patches {Note: 4 % .} Route: Topical; Site: ls4 affected area; 16:25 Drug: Zofran 4 mg Route: PO; ls4 17:55 Follow up: Response: No adverse reaction ls4 16:47 Drug: morphine 5 mg Route: IM; Site: right deltoid; ls4 17:15 Follow up: Response: No adverse reaction; Marked relief of symptoms ls4 17:15 Drug: Decadron 10 mg Route: IM; Site: left deltoid; ls4 17:45 Follow up: Response: No adverse reaction; No change in condition ls4 18:12 Drug: Demerol 50 mg Route: IM; Site: right deltoid; ls4 18:27 Follow up: Response: No adverse reaction ls4 Outcome: 18:06 Discharge ordered by MD. pm1 18:28 Discharged to home via wheelchair, with family. ls4 18:28 Condition: stable 18:28 Discharge instructions given to patient, family, Instructed on discharge instructions, follow up and referral plans. medication usage, safety practices, Demonstrated understanding of instructions, follow-up care, medications, Prescriptions given X 18:47 Patient left the ED. ls4 Signatures: Margarita Black Patrick, NP GEOLOGY PROFESSOR pm1 Jaron Thornton RN RN jl7 Ana Damico RN RN ls4 Corrections: (The following items were deleted from the chart) 16:09 16:05 Acuity: CARMENCITA 4 abdirahman gary
--- NOTE | 2019-11-10 18:07 | EDPHYS ---
Physician Documentation [facility] Name: Parth Jerez Age: 49 yrs Sex: Male : 1970 Arrival Date: 11/10/2019 Time: 15:34 Bed 28 Private MD: ED Physician Elroy Ortiz HPI: 11/10 16:21 This 49 yrs old Male presents to ER via Ambulatory with complaints of Low pm1 Back Pain. 16:21 The patient presents with pain. The symptoms are located in the low back. The pain does pm1 not radiate. The problem was sustained when lifting heavy object, and twisting. Patient turned to the left while picking up a 80 bag of potatoes and felt a pop in his back. Has history of back surgery due to fall injury over 10 years ago. Has infrequent back pain. Last back injury was in 2017 with lifting and turning a 60 lb object. Onset: The symptoms/episode began/occurred yesterday. Modifying factors: The patient symptoms are alleviated by nothing, the patient symptoms are aggravated by movement. Associated signs and symptoms: Pertinent positives: nausea, Pertinent negatives: dysuria, fever, incontinence, numbness, tingling, weakness. Severity of symptoms: in the emergency department the symptoms are unchanged. The patient has experienced similar episodes in the past, a few times. Historical: - Allergies: 16:08 NKDA; jl7 - Home Meds: 16:08 None [Active]; jl7 - PMHx: 16:08 Back pain; fall 30 feet, fx to L4L5; Pneumothorax; ruptured L upper lung when 19, had jl7 it removed; - PSHx: 16:08 L upper lobe removed; L4L5 fusion; Cholecystectomy; jl7 - Immunization history:: Adult Immunizations not up to date. - Coronavirus screen:: The patient has NOT traveled to [place] in the past 14 days. Proceed with normal triage process as indicated. - Social history:: Smoking status: Patient reports the use of cigarette tobacco products, smokes one-half pack cigarettes per day. - Ebola Screening: : No symptoms or risks identified at this time. ROS: 16:21 Constitutional: Negative for fever, chills, and weight loss, Cardiovascular: Negative pm1 for chest pain, palpitations, and edema, Respiratory: Negative for shortness of breath, cough, wheezing, and pleuritic chest pain. 16:21 : Negative for injury, bleeding, discharge, and swelling, MS/Extremity: Negative for injury and deformity, Skin: Negative for injury, rash, and discoloration. 16:21 Abdomen/GI: Positive for nausea, Negative for abdominal pain, vomiting, diarrhea. 16:21 Back: Positive for of the low back area pain. 16:21 Neuro: Negative for numbness, tingling, weakness. 16:21 All other systems are negative. pm1 Exam: 16:21 Constitutional: This is a well developed, well nourished patient who is awake, alert, pm1 and in no acute distress. Head/Face: Normocephalic, atraumatic. Neck: Trachea midline, no thyromegaly or masses palpated, and no cervical lymphadenopathy. Supple, full range of motion without nuchal rigidity, or vertebral point tenderness. No Meningismus. Chest/axilla: Normal chest wall appearance and motion. Nontender with no deformity. No lesions are appreciated. Cardiovascular: Regular rate and rhythm with a normal S1 and S2. No gallops, murmurs, or rubs. Normal PMI, no JVD. No pulse deficits. Respiratory: Lungs have equal breath sounds bilaterally, clear to auscultation and percussion. No rales, rhonchi or wheezes noted. No increased work of breathing, no retractions or nasal flaring. 16:21 Skin: Warm, dry with normal turgor. Normal color with no rashes, no lesions, and no evidence of cellulitis. 16:21 Back: pain, of the low back area, normal spinal alignment noted, muscle spasm, is appreciated in the left low back and right low back. 16:21 Musculoskeletal/extremity: Extremities: all appear grossly normal, with no appreciated pain with palpation. 16:21 Neuro: Orientation: is normal, Motor: is normal, moves all fours, bilateral great toes with 5/5 strength on dorsiflexion and plantar flexion, Sensation: no obvious gross deficits. Vital Signs: 16:05 BP 133 / 90; Pulse 61; Resp 19 S; Temp 98.3(O); Pulse Ox 98% on R/A; Weight 147.42 kg jl7 (R); Height 6 ft. 2 in. (187.96 cm) (R); Pain 10/10; 18:41 BP 128 / 78; Pulse 62; Resp 16; Temp 98.3; Pulse Ox 98% on R/A; Pain 3/10; ls4 16:05 Body Mass Index 41.73 (147.42 kg, 187.96 cm) jl7 MDM: 16:17 Patient medically screened. pm1 17:17 Data reviewed: vital signs. Data interpreted: Pulse oximetry: on room air is 98 %. pm1 Interpretation: normal. 18:05 Counseling: I had a detailed discussion with the patient and/or guardian regarding: the pm1 historical points, exam findings, and any diagnostic results supporting the discharge/admit diagnosis, radiology results, the need for outpatient follow up, for definitive care, a neurosurgeon, to return to the emergency department if symptoms worsen or persist or if there are any questions or concerns that arise at home. 18:10 Data reviewed: [place] last [place] of control substance Tylenol #3 prescribed on pm1 09/28/2018. 11/10 17:07 Order name: Lumbar Spine (3 Views) XRAY pm1 11/10 17:47 Order name: RAD; Complete Time: 17:50 EDMS Administered Medications: 16:25 Drug: Lidoderm 5 % (700 mg/patch) 1 patches {Note: 4 % .} Route: Topical; Site: ls4 affected area; 16:25 Drug: Zofran 4 mg Route: PO; ls4 17:55 Follow up: Response: No adverse reaction ls4 16:47 Drug: morphine 5 mg Route: IM; Site: right deltoid; ls4 17:15 Follow up: Response: No adverse reaction; Marked relief of symptoms ls4 17:15 Drug: Decadron 10 mg Route: IM; Site: left deltoid; ls4 17:45 Follow up: Response: No adverse reaction; No change in condition ls4 18:12 Drug: Demerol 50 mg Route: IM; Site: right deltoid; ls4 18:27 Follow up: Response: No adverse reaction ls4 Disposition: 11/10/19 18:06 Discharged to Home. Impression: Low back pain. - Condition is Stable. - Discharge Instructions: Back Pain, Adult, Musculoskeletal Pain, Back Injury Prevention, [id number]. - Prescriptions for Tylenol- Codeine #3 300-30 mg Oral Tablet - take 2 tablets by ORAL route every 6 hours As needed; 20 tablet. Zofran 4 mg Oral Tablet - take 1 tablet by ORAL route every 8 hours As needed; 20 tablet. - Medication Reconciliation Form, Thank You Letter, Antibiotic Education, Prescription Opioid Use form. - Follow up: Emergency Department; When: As needed; Reason: Worsening of condition. Follow up: Private Physician; When: 2 - 3 days; Reason: Recheck today's complaints, Continuance of care, Re-evaluation by your physician. - Problem is new. - Symptoms have improved. Signatures: Dispatcher [employer] EDMS David Ortega NP WET END OPERATOR pm1 Jaron Thornton RN RN jl7 Ana Damico RN RN ls4 Corrections: (The following items were deleted from the chart) 18:47 18:06 11/10/2019 18:06 Discharged to Home. Impression: Low back pain. Condition is ls4 Stable. Forms are Medication Reconciliation Form, Thank You Letter, Antibiotic Education, Prescription Opioid Use. Follow up: Emergency Department; When: As needed; Reason: Worsening of condition. Follow up: Private Physician; When: 2 - 3 days; Reason: Recheck today's complaints, Continuance of care, Re-evaluation by your physician. Problem is new. Symptoms have improved. pm1
[2019-11-10] MEDS ORDERED: MEPERIDINE HCL 50 MG/ML ONE (18:15)
[2019-11-12 09:35] VITALS: TEMP 98.3; O2SAT 98
[2019-11-12 09:37] VITALS: BP 128/78
== END 2019-11-10 18:47 | disposition home or self-care (01) ==
LOC: ER 15:27
DX: M54.5 Low back pain (principal); F17.210 Nicotine dependence, cigarettes, uncomplicated; X50.0XXA Overexertion from strenuous movement or load, initial encounter; Y93.89 Activity, other specified; Y92.9 Unspecified place or not applicable; Y99.0 Civilian activity done for income or pay
CPT/HCPCS: 72100; 96372; 99283; J2175; J2270

== ENCOUNTER 2020-03-01 20:55 | Emergency (ER) | payer OTHER, SELFPAY ==
[2020-03-01] MEDS ORDERED: MORPHINE 4 MG/ML SYR ONE ×2 (22:26→23:52)
[2020-03-01] MEDS ORDERED: ONDANSETRON 4 MG/2 ML VIAL ONE (22:27)
[2020-03-01 23:00] LABS: Absolute Lymphocytes (CBC) 2.7 K/uL (0.7-4.9); Hematocrit 45.3 % (39.6-49.0); Lymphocytes % 32.6 % (15.3-44.8); MPV 9.5 fL (7.6-11.3); RBC Red Blood Cell Count 5.18 M/uL (4.33-5.43)
[2020-03-01 23:01] LABS: Protime INR 0.93
[2020-03-01 23:10] LABS: ALT/SGPT 45 U/L (12-78); AST/SGOT 22 U/L (15-37); Albumin 3.5 g/dL (3.4-5.0); Alkaline Phosphatase 119 U/L (45-117); BUN Blood Urea Nitrogen 14 mg/dL (7-18); Bicarbonate 27 mmol/L (21-32); Bilirubin Direct < 0.1 mg/dL (0-0.2); Bilirubin Total 0.2 mg/dL (0.2-1.0); Glucose Level 100 mg/dL (74-106); Lipase 103 U/L (73-393); Magnesium 2.1 mg/dL (1.8-2.4); Potassium 3.9 mmol/L (3.5-5.1); Protein, Total 8.1 g/dL (6.4-8.2); Sodium Level 138 mmol/L (136-145); Troponin (Emerg Dept Use Only) < 0.02 ng/mL (0.0-0.045)
--- NOTE | 2020-03-01 23:26 | RAD REPORT ---
EXAM DESCRIPTION: Tyra Single View03/01/2020 10:58 pm CLINICAL HISTORY: Chest pain COMPARISON: 2017 FINDINGS: The lungs appear clear of acute infiltrate. The heart is mildly to moderately enlarged IMPRESSION: No acute abnormalities displayed
[2020-03-01 23:43] LABS: Urine Blood TRACE (NEG); Urine Glucose NEGATIVE (NEG); Urine Protein NEGATIVE (NEG); Urine Specific Gravity 1.025 (1.005-1.030)
[2020-03-02] MEDS ORDERED: KETOROLAC 30 MG/ML INJ ONE (00:38)
--- NOTE | 2020-03-02 01:38 | EDPHYS ---
Physician Documentation [facility] Name: Parth Jerez Age: 50 yrs Sex: Male : 1970 Arrival Date: 03/01/2020 Time: 20:58 Bed 5 Private MD: ED Physician Haseeb Nixon HPI: 03/01 22:19 This 50 yrs old Male presents to ER via Ambulatory with complaints of Pain In billy Ribs. 22:19 The patient has shortness of breath at rest. Onset: The symptoms/episode began/occurred billy 2 day(s) ago. Duration: The symptoms are continuous, and are steadily getting worse. The patient's shortness of breath is aggravated by coughing, exertion, walking. The patient or guardian reports chest pain that is located primarily in the anterior chest wall, left. Onset: 2 day(s) ago. The pain does not radiate. Associated signs and symptoms: Pertinent positives: non-productive cough. Severity of symptoms: At their worst the symptoms were moderate in the emergency department the symptoms are unchanged. Associated signs and symptoms: The patient has no apparent associated signs or symptoms. The chest pain is described as sharp, stabbing. Historical: - Allergies: 21:06 NKDA; ll1 - PMHx: 21:06 Back pain; fall 30 feet, fx to L4L5; Pneumothorax; ruptured L upper lung when 19, had ll1 it removed; pleurisy; - PSHx: 21:06 L upper lobe removed; Cholecystectomy; L4L5 fusion; Hernia repair; ll1 - Immunization history:: Adult Immunizations up to date. - Social history:: Smoking status: Patient reports the use of cigarette tobacco products, smokes one-half pack cigarettes per day, Patient uses alcohol, but reports only rare drinking. Patient/guardian denies using street drugs. - Family history:: not pertinent. ROS: 22:19 Constitutional: Negative for fever, chills, and weight loss, Eyes: Negative for injury, billy pain, redness, and discharge, ENT: Negative for injury, pain, and discharge, Neck: Negative for injury, pain, and swelling, Cardiovascular: Negative for chest pain, palpitations, and edema, Abdomen/GI: Negative for abdominal pain, nausea, vomiting, diarrhea, and constipation, Back: Negative for injury and pain, : Negative for injury, bleeding, discharge, and swelling, MS/Extremity: Negative for injury and deformity, Skin: Negative for injury, rash, and discoloration, Neuro: Negative for headache, weakness, numbness, tingling, and seizure, Psych: Negative for depression, anxiety, suicide ideation, homicidal ideation, and hallucinations, Allergy/Immunology: Negative for hives, rash, and allergies, Endocrine: Negative for neck swelling, polydipsia, polyuria, polyphagia, and marked weight changes, Hematologic/Lymphatic: Negative for swollen nodes, abnormal bleeding, and unusual bruising. 22:19 Respiratory: Positive for cough, shortness of breath, at rest. Exam: 22:19 Constitutional: This is a well developed, well nourished patient who is awake, alert, billy and in no acute distress. Head/Face: Normocephalic, atraumatic. Eyes: Pupils equal round and reactive to light, extra-ocular motions intact. Lids and lashes normal. Conjunctiva and sclera are non-icteric and not injected. Cornea within normal limits. Periorbital areas with no swelling, redness, or edema. ENT: Nares patent. No nasal discharge, no septal abnormalities noted. Tympanic membranes are normal and external auditory canals are clear. Oropharynx with no redness, swelling, or masses, exudates, or evidence of obstruction, uvula midline. Mucous membranes moist. Neck: Trachea midline, no thyromegaly or masses palpated, and no cervical lymphadenopathy. Supple, full range of motion without nuchal rigidity, or vertebral point tenderness. No Meningismus. Chest/axilla: Normal chest wall appearance and motion. Nontender with no deformity. No lesions are appreciated. Cardiovascular: Regular rate and rhythm with a normal S1 and S2. No gallops, murmurs, or rubs. Normal PMI, no JVD. No pulse deficits. Abdomen/GI: Soft, non-tender, with normal bowel sounds. No distension or tympany. No guarding or rebound. No evidence of tenderness throughout. Back: No spinal tenderness. No costovertebral tenderness. Full range of motion. Male : Normal genitalia with no discharge or lesions. Skin: Warm, dry with normal turgor. Normal color with no rashes, no lesions, and no evidence of cellulitis. MS/ Extremity: Pulses equal, no cyanosis. Neurovascular intact. Full, normal range of motion. Neuro: Awake and alert, GCS 15, oriented to person, place, time, and situation. Cranial nerves II-XII grossly intact. Motor strength 5/5 in all extremities. Sensory grossly intact. Cerebellar exam normal. Normal gait. Psych: Awake, alert, with orientation to person, place and time. Behavior, mood, and affect are within normal limits. 22:19 Respiratory: the patient does not display signs of respiratory distress, Respirations: labored breathing, that is mild, Breath sounds: decreased breath sounds, that are mild, are heard in the left upper lobe and left posterior upper lobe. 22:24 ECG was reviewed by the Attending Physician. [facility] 03/02 01:33 Musculoskeletal/extremity: Exam is negative for acute changes, DVT Exam: No signs of [facility] deep vein thrombosis. no pain, no swelling, no tenderness, negative Homans' sign noted on exam, no appreciated bluish discoloration, no erythema, no increased warmth. 01:40 Skin: Appearance: normal except for affected area, abscess, not appreciated, billy cellulitis, is not appreciated, induration, is not appreciated, injury, is not appreciated, lesion(s), are not present, no rash present. Turgor: is excellent. Vital Signs: 03/01 21:04 BP 144 / 105; Pulse 74; Resp 18; Temp 98.1; Pulse Ox 99% ; Pain 10/10; ll1 22:30 BP 126 / 79; Pulse 70; Resp 17; Pulse Ox 97% on R/A; rv 23:00 BP 143 / 89; Pulse 62; Resp 16; Pulse Ox 97% on R/A; rv 03/02 00:00 BP 132 / 91; Pulse 63; Resp 16; Pulse Ox 97% on R/A; rv 00:36 BP 137 / 101; Pulse 62; Resp 17; Pulse Ox 96% ; rv 01:52 BP 129 / 83; Pulse 66; Resp 16; Pulse Ox 98% on R/A; rv MDM: 03/01 22:13 Patient medically screened. [facility] 22:22 Data reviewed: vital signs, nurses notes, lab test result(s), EKG, radiologic studies, billy CT scan, plain films. 22:22 Differential diagnosis: Bronchitis CHF exacerbation, Chronic Obstructive Pulmonary billy Disease chest wall pain, gastritis, pericarditis, pleurisy, pneumonia, pneumothorax, pulmonary embolus, thoracic aortic disection, pneumonia, Pneumothorax pulmonary edema, Pulmonary Embolism reactive airway disease. Antibiotic administration: Not indicated. HEART Score: History: Slightly Suspicious (0), ECG: Normal (0), Age: > 45 and < 65 years (1), Risk Factors: 1 or 2 risk factors (1), [+ Family HX] [Obesity]. The patient was not given aspirin in the Emergency Department. Patient reports taking aspirin within the past 24 hours. The patient's Wells Deep Vein Thrombosis Score was calculated as follows: Total Score: 0-2 Pts- Low Risk. The patient's pulmonary embolism risk score was calculated as follows: Total Score: 0-2 points. This patient was found to be at low risk for a pulmonary embolism by using the Well's assessment criteria. MIGUEL Risk Score: TOTAL SCORE = 0. Immunization status:. Data interpreted: benefits consultant: rate is 74 beats/min, Pulse oximetry: on room air is 99 %. Test interpretation: by ED physician or midlevel provider: ECG, plain radiologic studies. 03/02 01:33 ED course: pt explained all results, and pain better controlled, will fu with doctors billy given , refrain from smoking and return if symptoms persist or increase. 03/01 22:17 Order name: Basic Metabolic Panel; Complete Time: 00:03 billy 03/01 22:17 Order name: CBC with Diff; Complete Time: 00:03 billy 03/01 22:17 Order name: LFT's; Complete Time: 00:03 billy 03/01 22:17 Order name: Magnesium; Complete Time: 00:03 billy 03/01 22:17 Order name: PT-INR; Complete Time: 00:03 billy 03/01 22:17 Order name: Troponin (emerg Dept Use Only); Complete Time: 00:03 billy 03/01 22:17 Order name: XRAY Chest (1 view); Complete Time: 00:03 billy 03/01 22:17 Order name: CT Chest For PE Angio billy 03/01 22:17 Order name: Lipase; Complete Time: 00:03 billy 03/01 23:34 Order name: CREATININE WHOLE BLOOD; Complete Time: 00:03 EDMS 03/01 23:39 Order name: Urine Dipstick--Ancillary (enter results); Complete Time: 00:03 ar5 03/02 00:25 Order name: Troponin (emerg Dept Use Only): now; Complete Time: 01:27 [facility] 03/01 22:17 Order name: EKG; Complete Time: 22:18 [facility] 03/01 22:17 Order name: Cardiac monitoring; Complete Time: 22:40 [facility] 03/01 22:17 Order name: EKG - Nurse/Tech; Complete Time: 22:40 [facility] 03/01 22:17 Order name: IV Saline Lock; Complete Time: 22:40 [facility] 03/01 22:17 Order name: Labs collected and sent; Complete Time: 22:40 [facility] 03/01 22:17 Order name: O2 Per Protocol; Complete Time: 22:40 [facility] 03/01 22:17 Order name: O2 Sat Monitoring; Complete Time: :40 [facility] 03/01 22:17 Order name: Urine Dipstick-Ancillary (obtain specimen); Complete Time: 23:25 [facility] EC/02 22:24 Rate is 73 beats/min. Rhythm is regular. QRS [place] is Normal. SC interval is normal. QRS billy interval is normal. QT interval is normal. No Q waves. T waves are Normal. No ST changes noted. Clinical impression: Normal ECG and No evidence of ischemia. Interpreted by me. Reviewed by me. Administered Medications: 22:40 Drug: morphine 4 mg {Note: rass 0.} Route: IVP; Site: right forearm; rv 03/02 00:12 Follow up: Response: No adverse reaction; RASS: Alert and Calm (0) rv 03/01 22:40 Drug: Zofran (Ondansetron) 4 mg {Note: rass 0.} Route: IVP; Site: right forearm; rv 03/02 00:12 Follow up: Response: No adverse reaction rv 00:12 Drug: morphine 4 mg Route: IVP; Site: right forearm; rv 00:36 Follow up: Response: No adverse reaction; Pain is unchanged, physician notified; RASS: rv Alert and Calm (0) 00:36 Drug: TORadol 30 mg Route: IVP; Site: right forearm; rv 01:34 Follow up: Response: No adverse reaction rv 01:50 Drug: Zithromax 500 mg Route: PO; rv 01:51 Follow up: Response: Medication administered at discharge. rv 01:51 Drug: morphine 4 mg {Note: RASS 0.} Route: IVP; Site: right forearm; rv 01:51 Follow up: Response: Medication administered at discharge. rv Disposition: 03/02/20 01:37 Discharged to Home. Impression: Pleurisy, Chest pain on breathing, Tobacco abuse counseling. - Condition is Stable. - Discharge Instructions: Nonspecific Chest Pain, Chest Wall Pain, Pleurisy, Steps to Quit Smoking, Smoking Hazards, Steps to Quit Smoking, [id number], Pleurisy, [id number]. - Prescriptions for Ibuprofen 600 mg Oral Tablet - take 1 tablet by ORAL route every 8 hours As needed take with food; 21 tablet. Tylenol- Codeine #3 300-30 mg Oral Tablet - take 2 tablets by ORAL route every 6 hours As needed; 26 tablet. Medrol (Carlos) 4 mg Oral Tablets, Dose Pack - take 1 tablet by ORAL route as directed - follow package instructions; 1 packet. Zithromax 500 mg Oral Tablet - take 1 tablet by ORAL route once daily for 4 days; 4 tablet. - Medication Reconciliation Form, Thank You Letter, Antibiotic Education, Prescription Opioid Use form. - Follow up: Private Physician; When: 2 - 3 days; Reason: Recheck today's complaints, Continuance of care, Re-evaluation by your physician. Follow up: Karlie Rios MD; When: 2 - 3 days; Reason: Recheck today's complaints, Re-evaluation by your physician. Follow up: Jase Chamorro MD; When: 2 - 3 days; Reason: Recheck today's complaints, Re-evaluation by your physician. - Problem is new. - Symptoms have improved. Signatures: Dispatcher [employer] EDNY Haseeb Nixon MD MD cha Vicente, Ronaldo, RN RN Dm Alcantara RN RN ll1 Corrections: (The following items were deleted from the chart) 01:53 01:37 03/02/2020 01:37 Discharged to Home. Impression: Pleurisy; Chest pain on rv breathing; Tobacco abuse counseling. Condition is Stable. Forms are Medication Reconciliation Form, Thank You Letter, Antibiotic Education, Prescription Opioid Use. Follow up: Private Physician; When: 2 - 3 days; Reason: Recheck today's complaints, Continuance of care, Re-evaluation by your physician. Follow up: Karlie Rios; When: 2 - 3 days; Reason: Recheck today's complaints, Re-evaluation by your physician. Follow up: Jase Chamorro; When: 2 - 3 days; Reason: Recheck today's complaints, Re-evaluation by your physician. Problem is new. Symptoms have improved. billy
--- NOTE | 2020-03-02 01:38 | ER ---
Nurse's Notes [facility] Name: Parth Jerez Age: 50 yrs Sex: Male : 1970 Arrival Date: 03/01/2020 Time: 20:58 Bed 5 Private MD: Diagnosis: Pleurisy;Chest pain on breathing;Tobacco abuse counseling Presentation: 03/01 21:04 Chief complaint: Patient states: Pain to left rib cage area since yesterday, getting ll1 worse today. States it feels like the time he had pleurisy. Denies cough and SOB, no fever. Coronavirus screen: Proceed with normal triage. Patient denies a cough. Patient denies shortness of breath or difficulty breathing. Patient denies measured and/or subjective temperature greater than 100.4F prior to today's visit. Patient denies travel on a cruise ship or to a country the [facility] currently lists as an affected area. Patient denies contact with known and/or suspected case of COVID-19. Ebola Screen: Patient denies travel to an Ebola-affected area in the 21 days before illness onset. Initial Sepsis Screen: Does the patient meet any 2 criteria? No. Patient's initial sepsis screen is negative. Risk Assessment: Do you want to hurt yourself or someone else? Patient reports no desire to harm self or others. Onset of symptoms was February 29, 2020. 21:04 Method Of Arrival: Ambulatory ll1 21:04 Acuity: [place] 3 ll1 21:26 Initial Sepsis Screen: Does the patient have a suspected source of infection? No. rv Patient's initial sepsis screen is negative. Historical: - Allergies: 21:06 NKDA; ll1 - PMHx: 21:06 Back pain; fall 30 feet, fx to L4L5; Pneumothorax; ruptured L upper lung when 19, had ll1 it removed; pleurisy; - PSHx: 21:06 L upper lobe removed; Cholecystectomy; L4L5 fusion; Hernia repair; ll1 - Immunization history:: Adult Immunizations up to date. - Social history:: Smoking status: Patient reports the use of cigarette tobacco products, smokes one-half pack cigarettes per day, Patient uses alcohol, but reports only rare drinking. Patient/guardian denies using street drugs. - Family history:: not pertinent. Screenin:26 Abuse screen: Denies threats or abuse. Denies injuries from another. Nutritional rv screening: No deficits noted. Tuberculosis screening: No symptoms or risk factors identified. Fall Risk None identified. Assessment: 21:25 General: Appears uncomfortable, Behavior is calm, cooperative. Pain: Complains of pain rv in left lateral anterior chest. Neuro: Level of Consciousness is awake, alert, obeys commands, Oriented to person, place, time, situation. Cardiovascular: Patient's skin is warm and dry. Rhythm is sinus rhythm. Respiratory: Airway is patent Respiratory effort is even, unlabored, Respiratory pattern is regular, symmetrical. Derm: Skin is intact. 03/02 00:38 Reassessment: Patient is alert, oriented x 3, equal unlabored respirations, skin rv warm/dry/pink. PAIN IS UNCHANGED, STILL HARD TO INHALE DEEPLY. SATURATION IS WITHIN NORMAL. VITAL SIGNS ARE STABLE. REPEAT TROPONIN DONE. GIVEN REPEAT PAIN MEDICINE. Vital Signs: 03/01 21:04 BP 144 / 105; Pulse 74; Resp 18; Temp 98.1; Pulse Ox 99% ; Pain 10/10; ll1 22:30 BP 126 / 79; Pulse 70; Resp 17; Pulse Ox 97% on R/A; rv 23:00 BP 143 / 89; Pulse 62; Resp 16; Pulse Ox 97% on R/A; rv 06/03 00:00 BP 132 / 91; Pulse 63; Resp 16; Pulse Ox 97% on R/A; rv 00:36 BP 137 / 101; Pulse 62; Resp 17; Pulse Ox 96% ; rv 01:52 BP 129 / 83; Pulse 66; Resp 16; Pulse Ox 98% on R/A; rv ED Course: 03/01 20:58 Patient arrived in ED. cl3 21:03 Jese Aguilera, RN is Primary Nurse. jd3 21:05 Triage completed. ll1 21:07 Arm band placed on Patient placed in an exam room, on a stretcher. ll1 21:11 Yves Chao, CATHLEEN is Primary Nurse. rv 21:26 Patient has correct armband on for positive identification. Placed in gown. Bed in low rv position. Call light in reach. Side rails up X 1. manager monitoring on. Pulse ox on. NIBP on. 21:26 EKG done, by ED staff. rv 22:13 Haseeb Nixon MD is Attending Physician. billy 22:30 Inserted saline lock: 20 gauge in right forearm, using aseptic technique. Blood rv collected. 22:30 Initial lab(s) drawn, by me, sent to lab. EKG done, reviewed by Haseeb Nixon MD. rv 22:59 XRAY Chest (1 view) In Process Unspecified. EDMS 23:21 CT Chest For PE Angio In Process Unspecified. EDMS 03/02 01:36 Karlie Rios MD is Referral Physician. billy 01:36 Jase Chamorro MD is Referral Physician. billy 01:52 No provider procedures requiring assistance completed. IV discontinued, intact, rv bleeding controlled, No redness/swelling at site. Pressure dressing applied. Administered Medications: 03/01 22:40 Drug: morphine 4 mg {Note: rass 0.} Route: IVP; Site: right forearm; rv 03/02 00:12 Follow up: Response: No adverse reaction; RASS: Alert and Calm (0) rv 03/01 22:40 Drug: Zofran (Ondansetron) 4 mg {Note: rass 0.} Route: IVP; Site: right forearm; rv 03/02 00:12 Follow up: Response: No adverse reaction rv 00:12 Drug: morphine 4 mg Route: IVP; Site: right forearm; rv 00:36 Follow up: Response: No adverse reaction; Pain is unchanged, physician notified; RASS: rv Alert and Calm (0) 00:36 Drug: TORadol 30 mg Route: IVP; Site: right forearm; rv 01:34 Follow up: Response: No adverse reaction rv 01:50 Drug: Zithromax 500 mg Route: PO; rv 01:51 Follow up: Response: Medication administered at discharge. rv 01:51 Drug: morphine 4 mg {Note: RASS 0.} Route: IVP; Site: right forearm; rv 01:51 Follow up: Response: Medication administered at discharge. rv Outcome: 01:37 Discharge ordered by . billy 01:53 Discharged to home ambulatory. rv 01:53 Condition: good 01:53 Discharge instructions given to patient, Instructed on discharge instructions, follow up and referral plans. medication usage, Demonstrated understanding of instructions, follow-up care, medications, Prescriptions given X 3. 01:53 Patient left the ED. rv Signatures: Dispatcher [employer] EDDE Haseeb Nixon MD MD cha Aguilera, Jese, RN RN jd3 Yves Chao, RN RN rv Oswald, Earl aranda3 Dm Akers RN RN ll1
[2020-03-02] MEDS ORDERED: AZITHROMYCIN 250 MG TAB ONE (01:51)
[2020-03-02] MEDS ORDERED: MORPHINE 4 MG/ML SYR ONE (01:53)
[2020-03-02 02:04] VITALS: TEMP 98.1
[2020-03-02 02:25] VITALS: BP 129/83; O2SAT 98
--- NOTE | 2020-03-02 16:30 | EKG ---
Test Date: 2020-03-01 Test Time: 21:20:08 Woven Label Designer: RV MEASUREMENT RESULTS: Intervals: Rate: 73 LA: 158 QRSD: 110 QT: 384 QTc: 423 Sunshine: P: 31 LA: 158 QRS: 4 T: 41 INTERPRETIVE STATEMENTS: Normal sinus rhythm Normal ECG Compared to ECG 09/10/2018 15:39:14 No significant changes Electronically Signed On 03-02-20 16:27:35 CDT by Juan Salas
--- NOTE | 2020-03-02 17:18 | RAD REPORT ---
EXAM DESCRIPTION: CT - Chest For Pe Angio - 03/02/2020 7:03 am CLINICAL HISTORY: Cough;COPD;Chest pain COMPARISON: CTA chest 09/10/2018 TECHNIQUE: Chest CTA axial images acquired with IV contrast. Coronal and sagittal CTA MIPs and MPRs created. Exam performed according to departmental dose-optimization program which includes automated exposure control, adjustment of mA and/or kV according to patient size, and/or use of iterative recon struction technique. FINDINGS: Heart size mildly enlarged. No pericardial effusion. Thoracic aorta unremarkable without evidence of dissection, aneurysm, or atherosclerotic plaque. No evidence of large central pulmonary embolism. Evaluation of small peripheral pulmonary arteries is more difficult due to respiratory motion artifac t. Evaluation for small lung nodules is difficult due to respiratory motion artifact. Postsurgical changes of superomedial aspect of left upper lobe. No lung mass, consolidation, or significant pulmonary edema. Right-sided dependent atelectasis. No pleural effusion or pneumothorax. Thoracic spine degenerative disease. IMPRESSION: 1. No CT evidence of large central pulmonary embolism. Evaluation of small peripheral pulmonary arteries is more difficult due to respiratory motion artifac t. 2. Mild cardiomegaly. 3. Postsurgical changes of superomedial aspect of left upper lobe. Electronically signed by: Lavell Burns MD 03/01/2020 11:37 PM CDT Due to temporary technical issues with the PACS/Fluency reporting system, reports are being signed by the in house radiologist without review a sa courtesy to ensure prompt reporting. The interpreting r adiologist is fully responsible for the content of the report.
== END 2020-03-02 01:53 | disposition home or self-care (01) ==
LOC: ER 20:55
DX: R09.1 Pleurisy (principal); Z71.6 Tobacco abuse counseling; F17.210 Nicotine dependence, cigarettes, uncomplicated
CPT/HCPCS: 93005; 85025; 80048; 36415; 83735; 85610; 82565; 80076; 81003; 84484 ×2; 83690; 71275; 71045; 96375; 96374; 99285; Q9967; J2405

== ENCOUNTER 2021-06-03 09:35 | Emergency (ER) | payer SELFPAY ==
[2021-06-03] MEDS ORDERED: CLINDAMYCIN IV 150 MG/ML (4 mL) VIAL ONE (10:20)
[2021-06-03] MEDS ORDERED: ONDANSETRON 4 MG (ODT) TAB ONE (10:20)
[2021-06-03] MEDS ORDERED: MORPHINE 4 MG/ML SYR ONE (10:20)
--- NOTE | 2021-06-03 10:27 | ER ---
Nurse's Notes [facility] Name: Parth Jerez Age: 51 yrs Sex: Male : 1970 Arrival Date: 06/03/2021 Time: 09:35 Bed DX1 Private MD: Diagnosis: Periapical abscess without sinus Presentation: 06/03 09:45 Chief complaint: Patient states: "I had a toothache yesterday and today I woke up with aa5 my right cheek swollen and it hurts so bad". Coronavirus screen: At this time, the client does not indicate any symptoms associated with coronavirus-19. Ebola Screen: Patient negative for fever greater than or equal to 101.5 degrees Fahrenheit, and additional compatible Ebola Virus Disease symptoms. Initial Sepsis Screen: Does the patient meet any 2 criteria? HR > 90 bpm. Does the patient have a suspected source of infection? No. Patient's initial sepsis screen is negative. Risk Assessment: Do you want to hurt yourself or someone else? Patient reports no desire to harm self or others. Onset of symptoms was 2020. 09:45 Method Of Arrival: Ambulatory aa5 09:45 Acuity: [place]MEN[place]A 3 aa5 Historical: - Allergies: 09:46 NKDA; aa5 - PMHx: 09:46 Back pain; fall 30 feet, fx to L4L5; pleurisy; Pneumothorax; ruptured L upper lung when aa5 19, had it removed; - Immunization history:: Client reports having NOT received the Covid vaccine. - Social history:: Smoking status: Patient reports the use of cigarette tobacco products, smokes one-half pack cigarettes per day. Screenin:00 Abuse screen: Denies threats or abuse. Nutritional screening: No deficits noted. aa5 Tuberculosis screening: No symptoms or risk factors identified. Fall Risk None identified. Assessment: 10:00 General: Appears uncomfortable, Behavior is calm, cooperative. Pain: Complains of pain aa5 in right cheek Pain currently is 10 out of 10 on a pain scale. Quality of pain is described as sharp, throbbing. Neuro: Level of Consciousness is awake, alert, obeys commands, Oriented to person, place, time, situation. Cardiovascular: Patient's skin is warm and dry. Respiratory: Airway is patent Respiratory effort is even, unlabored, Respiratory pattern is regular, symmetrical. GI: No signs and/or symptoms were reported involving the gastrointestinal system. : No signs and/or symptoms were reported regarding the genitourinary system. EENT: Poor dentition noted . Reports toothache to right side of mouth. Derm: Skin is pink, warm \\T\\ dry. Swelling noted to right cheek. Musculoskeletal: Range of motion: intact in all extremities. 10:38 Reassessment: Patient is alert, oriented x 3, equal unlabored respirations, skin aa5 warm/dry/pink. Patient states feeling better. Patient states symptoms have improved. Vital Signs: 09:47 BP 143 / 99; Pulse 109; Resp 20 S; Temp 99.1(TE); Pulse Ox 100% on R/A; Weight 131.54 aa5 kg (R); Height 6 ft. 2 in. (187.96 cm) (R); 09:47 Body Mass Index 37.23 (131.54 kg, 187.96 cm) aa5 ED Course: 09:35 Patient arrived in ED. as 09:45 Arm band placed on. aa5 09:45 Patient has correct armband on for positive identification. aa5 09:46 Triage completed. aa5 09:58 David Ortega NP is PHCP. pm1 09:58 Haseeb Nixon MD is Attending Physician. pm1 10:05 Hellen Vizcarra, CATLHEEN is Primary Nurse. aa5 10:38 No provider procedures requiring assistance completed. Patient did not have IV access aa5 during this emergency room visit. Administered Medications: 10:00 Drug: Ondansetron 4 mg Route: PO; aa5 10:38 Follow up: Response: No adverse reaction aa5 10:05 Drug: morphine 4 mg Route: IM; Site: left deltoid; aa5 10:38 Follow up: Response: No adverse reaction; Pain is decreased aa5 10:05 Drug: Clindamycin 600 mg {Note: 300mg given to right gluteus and 300mg given to left aa5 gluteus.} Route: IM; Site: right gluteus; 10:38 Follow up: Response: No adverse reaction aa5 Outcome: 10:26 Discharge ordered by . pm1 10:38 Discharged to home ambulatory. aa5 10:38 Condition: improved 10:38 Discharge instructions given to patient, Instructed on discharge instructions, follow up and referral plans. medication usage, Demonstrated understanding of instructions, follow-up care, medications, Prescriptions given X 2. 10:41 Patient left the ED. aa5 Signatures: Margarita Black Audri RN RN aa5 David Ortega, METAL PICKLING EQUIPMENT OPERATOR METAL PICKLING EQUIPMENT OPERATOR pm1 Corrections: (The following items were deleted from the chart) 11:08 10:00 Derm: Skin is pink, warm \\T\\ dry. aa5 aa5
--- NOTE | 2021-06-03 10:27 | EDPHYS ---
Physician Documentation [facility] Name: Parth Jerez Age: 51 yrs Sex: Male : 1970 Arrival Date: 06/03/2021 Time: 09:35 Bed DX1 Private MD: ED Physician Haseeb Nixon HPI: 06/03 09:54 This 51 yrs old Male presents to ER via Ambulatory with complaints of pm1 Toothache, Facial Swelling. 09:54 The patient presents with pain, swelling. The problem is located in the Right upper pm1 teeth and right cheek. Onset: The symptoms/episode began/occurred yesterday. Duration: The symptoms are continuous. Modifying factors: the symptoms are aggravated by Food on right side. Associated signs and symptoms: Pertinent negatives: dysphagia, fever, inability to eat, vomiting. Severity of symptoms: in the emergency department the symptoms are actually worse. The patient has not recently seen a physician, Patient was planning on removal of all upper teeth for placement of dentures about 1 year ago. But due to insurance issues he has not been able to get the extraction and dentures. Patient presenting with pain and swelling to right cheek and right upper teeth. Historical: - Allergies: 09:46 NKDA; aa5 - PMHx: 09:46 Back pain; fall 30 feet, fx to L4L5; pleurisy; Pneumothorax; ruptured L upper lung when aa5 19, had it removed; - Immunization history:: Client reports having NOT received the Covid vaccine. - Social history:: Smoking status: Patient reports the use of cigarette tobacco products, smokes one-half pack cigarettes per day. ROS: 09:54 Constitutional: Negative for fever, chills, and weight loss. pm1 09:54 Cardiovascular: Negative for chest pain, palpitations, and edema, Respiratory: Negative for shortness of breath, cough, wheezing, and pleuritic chest pain, Abdomen/GI: Negative for abdominal pain, nausea, vomiting, diarrhea, and constipation, MS/Extremity: Negative for injury and deformity, Skin: Negative for injury, rash, and discoloration, Neuro: Negative for headache, weakness, numbness, tingling, and seizure. 09:54 ENT: Positive for dental pain, Negative for sore throat, difficulty swallowing, difficulty handling secretions. 09:54 All other systems are negative. Exam: 09:54 Constitutional: This is a well developed, well nourished patient who is awake, alert, pm1 and in no acute distress. Head/Face: Normocephalic, atraumatic. 09:54 Skin: Warm, dry with normal turgor. Normal color with no rashes, no lesions, and no evidence of cellulitis. 09:54 MS/ Extremity: Pulses equal, no cyanosis. Neurovascular intact. Full, normal range of motion. 09:54 Eyes: Exam is negative for acute changes, Extraocular movements: no acute changes, Sclera: no acute changes, icterus, is not appreciated. 09:54 ENT: Mouth: no acute changes, Lips: normal, Oral mucosa: normal, pink and intact, moist, No trismus present, Dental exam: dental caries, that is severe, diffusely, specifically in the upper right third molar (#1), upper right second molar (#2), upper right first molar (#3), upper right first bicuspid (#5), upper right cuspid (#6), upper left cuspid (#11), upper left first bicuspid (#12), upper left second bicuspid (#13), upper left first molar (#14), upper left second molar (#15) and upper left third molar (#16), Voice: is normal. 09:54 Neuro: Exam negative for acute changes, Orientation: is normal, Mentation: is normal, Motor: is normal, moves all fours, Gait: is steady, at a normal pace, without difficulty. Vital Signs: 09:47 BP 143 / 99; Pulse 109; Resp 20 S; Temp 99.1(TE); Pulse Ox 100% on R/A; Weight 131.54 aa5 kg (R); Height 6 ft. 2 in. (187.96 cm) (R); 09:47 Body Mass Index 37.23 (131.54 kg, 187.96 cm) aa5 MDM: 10:05 Patient medically screened. pm1 10:05 Data reviewed: vital signs. Data interpreted: Pulse oximetry: on room air is 100 %. pm1 Interpretation: normal. Counseling: I had a detailed discussion with the patient and/or guardian regarding: the historical points, exam findings, and any diagnostic results supporting the discharge/admit diagnosis, the need for outpatient follow up, a dentist, to return to the emergency department if symptoms worsen or persist or if there are any questions or concerns that arise at home. Administered Medications: 10:00 Drug: Ondansetron 4 mg Route: PO; aa5 10:38 Follow up: Response: No adverse reaction aa5 10:05 Drug: morphine 4 mg Route: IM; Site: left deltoid; aa5 10:38 Follow up: Response: No adverse reaction; Pain is decreased aa5 10:05 Drug: Clindamycin 600 mg {Note: 300mg given to right gluteus and 300mg given to left aa5 gluteus.} Route: IM; Site: right gluteus; 10:38 Follow up: Response: No adverse reaction aa5 Disposition Summary: 06/03/21 10:26 Discharge Ordered Location: Home pm1 Problem: new pm1 Symptoms: have improved pm1 Condition: Stable pm1 Diagnosis - Periapical abscess without sinus pm1 Followup: pm1 - With: Emergency Department - When: As needed - Reason: Worsening of condition Followup: pm1 - With: Private Physician - When: 2 - 3 days - Reason: Recheck today's complaints, Continuance of care, Re-evaluation by your physician Discharge Instructions: - Discharge Summary Sheet pm1 - Dental Pain pm1 - Diet and Dental Disease pm1 Forms: - Medication Reconciliation Form pm1 - Thank You Letter pm1 - Antibiotic Education pm1 - Prescription Opioid Use pm1 Prescriptions: - acetaminophen-codeine 300-15 mg Oral tablet - take 2 tablet by ORAL route every 6 hours As needed as needed; 20 tablet; pm1 Refills: 0, Product Selection Permitted - Clindamycin HCl 300 mg Oral Capsule - take 1 capsule by ORAL route every 6 hours for 10 days; 40 capsule; Refills: 0, pm1 Product Selection Permitted Addendum: 06/05/2021 15:09 Co-signature as Attending Physician, Haseeb Nixon MD I agree with the assessment and c medel plan of care. Signatures: Haseeb Nixon MD MD cha Calderon, Audri, RN RN aa5 David Ortega NP TALENT DEVELOPMENT CONSULTANT pm1
[2021-06-03 10:58] VITALS: BP 143/99; TEMP 99.1; O2SAT 100
== END 2021-06-03 10:41 | disposition home or self-care (01) ==
LOC: ER 09:35
DX: K04.7 Periapical abscess without sinus (principal); F17.210 Nicotine dependence, cigarettes, uncomplicated
CPT/HCPCS: 96372; 99283; S0077

== ENCOUNTER 2022-02-15 20:14 | Emergency (ER) | payer SELFPAY ==
--- NOTE | 2022-02-15 21:28 | RAD REPORT ---
EXAM DESCRIPTION: RAD - Shoulder Right 2 View - 02/15/2022 9:19 pm CLINICAL HISTORY: shoulder pain COMPARISON: No comparisons FINDINGS: No acute fracture or dislocation is seen. Mild AC joint degenerative changes are present.
--- NOTE | 2022-02-15 21:47 | EDPHYS ---
Physician Documentation [facility] Name: Parth Jerez Age: 52 yrs Sex: Male : 1970 Arrival Date: 02/15/2022 Time: 20:16 Bed Waiting Private MD: ED Physician Franklin Shah HPI: 02/15 20:40 This 52 yrs old Male presents to ER via Ambulatory with complaints of Shoulder Injury. jmm 20:40 The patient or guardian complains of an injury, pain. Onset: The symptoms/episode jmm began/occurred acutely, just prior to arrival. Modifying factors: the symptoms are alleviated by nothing. The symptoms are aggravated by lifting weight. Associated signs and symptoms: Pertinent positives:. Is a 52-year-old male with no chronic medical conditions presents emerged part with complaints of right shoulder pain beginning after falling earlier today. Patient states he fell directly on his right shoulder from a standing position.. Historical: - Allergies: 20:45 NKDA; ld1 - PMHx: 20:45 Back pain; fall 30 feet, fx to L4L5; pleurisy; Pneumothorax; ruptured L upper lung when ld1 19, had it removed; - PSHx: 20:45 Hernia repair; Back surgery; ld1 - Immunization history:: Adult Immunizations up to date, Client reports having NOT received the Covid vaccine. - Social history:: Smoking status: Patient reports the use of cigarette tobacco products, smokes one-half pack cigarettes per day, Patient/guardian denies using alcohol. ROS: 20:40 Constitutional: Negative for fever, chills, and weight loss, Cardiovascular: Negative jmm for chest pain, palpitations, and edema, Respiratory: Negative for shortness of breath, cough, wheezing, and pleuritic chest pain. 20:40 MS/extremity: Positive for injury or acute deformity, pain. 20:40 All other systems are negative. Exam: 20:40 Constitutional: This is a well developed, well nourished patient who is awake, alert, jmm and in no acute distress. Head/Face: atraumatic. Eyes: EOMI, no conjunctival erythema appreciated ENT: Moist Mucus Membranes Neck: Trachea midline, Supple Chest/axilla: Normal chest wall appearance and motion. Cardiovascular: Regular rate and rhythm. No edema appreciated Respiratory: Normal respirations, no respiratory distress appreciated Abdomen/GI: Non distended, soft Back: Normal ROM Skin: General appearance color normal 20:40 Musculoskeletal/extremity: Pain noted on abduction, full occupational ther strength noted to the right shoulder, full radial pulse, compartments are soft, neurovascular intact. 20:40 Skin: Appearance: Color: normal in color. 20:40 Neuro: Orientation: is normal, Mentation: is normal, Memory: is normal. 20:40 Psych: Behavior/mood is pleasant, cooperative. Vital Signs: 20:44 BP 137 / 90; Pulse 71; Resp 18; Temp 98.6(TE); Pulse Ox 96% on R/A; Weight 131.54 kg; ld1 Height 6 ft. 2 in. (187.96 cm); Pain 6/10; 20:44 Body Mass Index 37.23 (131.54 kg, 187.96 cm) ld1 MDM: 20:40 Patient medically screened. [facility] 21:44 Data reviewed: vital signs, nurses notes. Counseling: I had a detailed discussion with [facility] the patient and/or guardian regarding: the historical points, exam findings, and any diagnostic results supporting the discharge/admit diagnosis, radiology results, the need for outpatient follow up, to return to the emergency department if symptoms worsen or persist or if there are any questions or concerns that arise at home. 02/15 20:41 Order name: Shoulder Right (2 View) XRAY; Complete Time: 21:33 [facility] 02/15 21:45 Order name: Sling; Complete Time: 22:01 [facility] Administered Medications: 22:01 Drug: [place] (HYDROcodone-acetaminophen) 10 mg-325 mg 1 tabs Route: PO; tw5 22:01 Follow up: Response: No adverse reaction; Medication administered at discharge. tw5 Disposition: 02/16 04:08 Co-signature as Attending Physician, Franklin Shah MD. rn Disposition Summary: 02/15/22 21:46 Discharge Ordered Location: Home [facility] Condition: Stable [facility] Diagnosis - Strain of other muscles, fascia and tendons at shoulder and upper arm level, right [facility] arm Followup: [facility] - With: Antoine Paulino MD - When: 2 - 3 days - Reason: Recheck today's complaints, Continuance of care, Re-evaluation by your physician Discharge Instructions: - Discharge Summary Sheet [facility] - Shoulder Sprain [facility] Forms: - Medication Reconciliation Form [facility] - Thank You Letter [facility] - Antibiotic Education [facility] - Prescription Opioid Use [facility] Prescriptions: - Diclofenac Sodium 75 mg Oral Tablet Sustained Release - take 1 tablet by ORAL route 2 times per day; 30 tablet; Refills: 0, Product [facility] Selection Permitted - orphenadrine citrate 100 mg Oral Tablet Sustained Release - take 1 tablet by ORAL route 2 times per day As needed; 20 tablet; Refills: 0, [facility] Product Selection Permitted Signatures: Dispatcher [employer] Paras Mtz PA PA Franklin Rocha MD MD rn Dibbern, Lauren, RN RN ld1 Jolanta Julien [facility]
--- NOTE | 2022-02-15 21:47 | ER ---
Nurse's Notes [facility] Name: Parth Jerez Age: 52 yrs Sex: Male : 1970 Arrival Date: 02/15/2022 Time: 20:16 Bed Waiting Private MD: Diagnosis: Strain of other muscles, fascia and tendons at shoulder and upper arm level, right arm Presentation: 02/15 20:44 Chief complaint: Patient states: I was running after my dog last night, tripped and ld1 fell on my right shoulder. Pt c/o right shoulder pain. Coronavirus screen: At this time, the client does not indicate any symptoms associated with coronavirus-19. Ebola Screen: No symptoms or risks identified at this time. Initial Sepsis Screen: Does the patient meet any 2 criteria? No. Patient's initial sepsis screen is negative. Does the patient have a suspected source of infection? No. Patient's initial sepsis screen is negative. Risk Assessment: Do you want to hurt yourself or someone else? Patient reports no desire to harm self or others. Onset of symptoms was February 15, 2022. 20:44 Method Of Arrival: Ambulatory ld1 20:44 Acuity: [place] 4 ld1 Triage Assessment: 20:45 General: Appears in no apparent distress. comfortable, Behavior is calm, cooperative, ld1 appropriate for age. Pain: Complains of pain in right arm Pain does not radiate. Pain currently is 6 out of 10 on a pain scale. Quality of pain is described as throbbing. EENT: No signs and/or symptoms were reported regarding the EENT system. Neuro: Level of Consciousness is awake, alert, obeys commands, Oriented to person, place, time, situation. Respiratory: Airway is patent Respiratory effort is even, unlabored. Musculoskeletal: Reports pain in right arm. 22:02 Injury Description: no visible injury. tw5 Historical: - Allergies: 20:45 NKDA; ld1 - PMHx: 20:45 Back pain; fall 30 feet, fx to L4L5; pleurisy; Pneumothorax; ruptured L upper lung when ld1 19, had it removed; - PSHx: 20:45 Hernia repair; Back surgery; ld1 - Immunization history:: Adult Immunizations up to date, Client reports having NOT received the Covid vaccine. - Social history:: Smoking status: Patient reports the use of cigarette tobacco products, smokes one-half pack cigarettes per day, Patient/guardian denies using alcohol. Screenin:02 Abuse screen: Denies threats or abuse. Denies injuries from another. Nutritional tw5 screening: No deficits noted. Tuberculosis screening: No symptoms or risk factors identified. Fall Risk None identified. Assessment: 22:03 General: see triage. tw5 Vital Signs: 20:44 BP 137 / 90; Pulse 71; Resp 18; Temp 98.6(TE); Pulse Ox 96% on R/A; Weight 131.54 kg; ld1 Height 6 ft. 2 in. (187.96 cm); Pain 6/10; 20:44 Body Mass Index 37.23 (131.54 kg, 187.96 cm) ld1 ED Course: 20:16 Patient arrived in ED. ja2 20:37 Paras Moody PA is PHCP. [facility] 20:37 Franklin Shah MD is Attending Physician. m 20:45 Triage completed. ld1 20:45 Arm band placed on right wrist. ld1 21:20 Shoulder Right (2 View) XRAY In Process Unspecified. EDMS 21:45 Antoine Paulino MD is Referral Physician. jmm 22:02 Patient has correct armband on for positive identification. tw5 22:02 No provider procedures requiring assistance completed. Patient did not have IV access tw5 during this emergency room visit. Sling applied to right arm. Administered Medications: 22:01 Drug: [place] (HYDROcodone-acetaminophen) 10 mg-325 mg 1 tabs Route: PO; tw5 22:01 Follow up: Response: No adverse reaction; Medication administered at discharge. tw5 Medication: 22:03 VIS not applicable for this client. tw5 Outcome: 21:46 Discharge ordered by . [facility] 22:02 Discharged to home ambulatory, with family. tw5 22:02 Condition: good 22:02 Discharge instructions given to patient, Instructed on discharge instructions, follow up and referral plans. Demonstrated understanding of instructions, follow-up care, Prescriptions given X 1, 2. 22:07 Patient left the ED. tw5 Signatures: Dispatcher [employer] EDMS Paras Moody PA PA jmm Dibbern, Lauren, RN RN ld1 Ariane Harrell Wood, Jolanta tw5
[2022-02-15] MEDS ORDERED: HYDROCODONE/APAP 10/325 TAB ONE (21:58)
[2022-02-15 22:11] VITALS: BP 137/90; TEMP 98.6; O2SAT 96
== END 2022-02-15 22:07 | disposition home or self-care (01) ==
LOC: ER 20:14
DX: S46.811A Strain of other muscles, fascia and tendons at shoulder and upper arm level, right arm, initial encounter (principal); W18.30XA Fall on same level, unspecified, initial encounter; F17.210 Nicotine dependence, cigarettes, uncomplicated
CPT/HCPCS: 99284

== ENCOUNTER 2023-07-07 19:59 | Emergency (ER) | payer OTHER, SELFPAY ==
--- OUTSIDE RECORDS SUMMARY | 2023-07-07 20:03 | XMS REPORT | Continuity of Care Document ---
:1970 Author Organization [facility] t Address [address] [place] [address]. [address] [place] [address] Care Team Providers Name Role Phone JOZEF MULTANI Attending Clinician Unavailable LUIS ALFREDO AYALA Attending Clinician Unavailable Jovanny Wilkinson Attending Clinician Unavailable ANGELA AYALA Attending Clinician Unavailable MD SANTIAGO Attending Clinician Unavailable PROVIDER, AFFILIATE Attending Clinician Unavailable LONDON GRAHAM Attending Clinician Unavailable GISSELL HERRERA Attending Clinician Unavailable LAB47 Attending Clinician Unavailable KASIA GREENBERG Admitting Clinician Unavailable Payers Payer Name Policy Type Policy Number Effective Date Expiration Date S james AETNA [facility] 9 [id number] 2022 00:00:00 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 Problems Condition Condition Condition Status Onset Resolution Last Treating Co mments Source Name Details Category Date Date Treatment Clinician Date Chronic Chronic Disease Active Dayanara low back low back 01-16 Seybol d pain with pain with 00:00: - left-sided left-sided 00 Ex terna sciatica sciatica l Degenerati Degenerati Disease Active K doni on of on of 01-16 Seybold lumbar or lumbar or 00:00: - lumbosacra lumbosacra 00 Ex terna l l l interverte interverte bral disc bral disc Allergies, Adverse Reactions, Alerts Allergy Allergy Status Severity Reaction(s) Onset Inactive Treating Comm ents Source Name Type Date Date Clinician No Known DA Active U YAMIL Allergie 04-06 Hilaria s 00:00: d 00 [facility] Social History Social Habit Start Date Stop Date Quantity Comments Source Gender identity Daynaara casey - External Sexual orientation Dayanarayevgeniy Vernon - External History of tobacco Cigarette Smoker Dayanarayevgeniy Vernon use - External Alcohol intake 2023-05-08 2023-05-08 Ex-drinker Dayanarayevgeniy Ovalles omi 00:00:00 00:00:00 (finding) - External Cigarettes smoked 2023-01-16 2023-01-16 Dayanara Sousabeau current (pack per 00:00:00 00:00:00 - Exter nal day) - Reported Cigarette 2023-01-16 2023-01-16 Dayanarayevgeniy Vernon pack-years 00:00:00 00:00:00 - External Tobacco use and 2023-01-16 2023-01-16 Smokeless tobacco Ke jamisonjerson ybold exposure 00:00:00 00:00:00 non-user - External History of Social 2023-01-16 2023-01-16 Dayanarayevgeniy Vernon function 00:00:00 00:00:00 - External Sex [birth year] At [birth year] Dayanara casey 00:00:00 00:00:00 - External Smoking Status Start Date Stop Date Source Smokes tobacco daily 2023-01-16 00:00:00 Dayanarayevgeniy Vernon - External Medications Ordered Filled Start Stop Current Ordering Indication Dosage Frequency Signature Comments Components Source Medication Medication Date Date Medication? Clinician (SIG) Name Name Tizanidine Yes 4mg Q.[id number] Take 1 Dayanara HCl 4 MG 05-08 [id number] tablet (4 Seybold oral Tablet 08:59: 3D mg total) - 54 by mouth Externa every 8 l hours as needed for muscle spasms Etodolac Yes [id number] 400mg Take 1 Ke lsey 400 MG oral 05-07 tablet Seybol d Tablet 00:00: (400 mg - 00 total) by Externa mouth 2 l times daily - with food as needed Acetaminoph Yes [id number] 1{tbl} Q.00920580 Take 1 Dayanara en-Codeine 8-08 [id number] tablet by Seybold 300-30 MG 00:00: 3D mouth - oral Tablet 00 every 8 Exter na hours as l needed for pain Tizanidine 2023-0 Yes 4mg Q.[id number] Take 1 Dayanara HCl 4 MG 5-04 [id number] tablet (4 Seybold oral Tablet 13:54: 3D mg total) - 56 by mouth Externa every 8 l hours as needed for muscle spasms Gabapentin 2023-0 Yes [id number] 300mg Take 1 Dayanara 300 MG oral 5-02 capsule Seybo ld Capsule 00:00: (300 mg - 00 total) by Externa mouth 3 l times daily Gabapentin 2023-0 Yes [id number] 300mg Take 1 Dayanara 300 MG oral 5-02 capsule Seybo ld Capsule 00:00: (300 mg - 00 total) by Externa mouth 3 l times daily Tizanidine 2023-0 Yes 4mg Q.[id number] Take 1 Dayanara HCl 4 MG 4-19 [id number] tablet (4 Seybold oral Tablet 14:14: 3D mg total) - 31 by mouth Externa every 8 l hours as needed for muscle spasms Etodolac 2023-0 Yes [id number] 400mg Take 1 Ke lsey 400 MG oral 4-19 tablet Seybol d Tablet 00:00: (400 mg - 00 total) by Externa mouth 2 l times daily - with food as needed Acetaminoph 2023-0 Yes [id number] 1{tbl} Q.57257953 Take 1 Dayanara en-Codeine 4-19 [id number] tablet by Seybold 300-30 MG 00:00: 3D mouth - oral Tablet 00 every 8 Exter na hours as l needed for pain Etodolac 2023-0 Yes [id number] 400mg Take 1 Ke lsey 400 MG oral 4-19 tablet Seybol d Tablet 00:00: (400 mg - 00 total) by Externa mouth 2 l times daily - with food as needed Acetaminoph 2023-0 Yes [id number] 1{tbl} Q.35357727 Take 1 Dayanara en-Codeine 4-19 [id number] tablet by Seybold 300-30 MG 00:00: 3D mouth - oral Tablet 00 every 8 Exter na hours as l needed for pain Vital Signs Vital Name Observation Time Observation Value Comments Source Body height 2023-05-08 13:59:00 188 cm Dayanara Goldman eybold - External Body weight 2023-05-08 13:59:00 145.786 kg Dayanara Goldman eybold - External BMI 2023-05-08 13:59:00 41.27 kg/m2 Dayanara Goldman eybold - External Respiratory rate 2023-01-31 18:53:00 17 /min Daylin arthur Seybold - External Body height 2023-01-31 18:53:00 188 cm Dayaanra Goldman eybold - External Body weight 2023-01-31 18:53:00 145.151 kg Dayanara Goldman eybold - External BMI 2023-01-31 18:53:00 41.09 kg/m2 Dayanara Goldman eybold - External Respiratory rate 2023-01-16 18:38:00 18 /min Daylin ey Seybold - External Body height 2023-01-16 18:38:00 188 cm Dayanara Goldman eybold - External Body weight 2023-01-16 18:38:00 150.776 kg Dayanara Goldman eybold - External BMI 2023-01-16 18:38:00 42.68 kg/m2 Dayanara Goldman eybold - External Systolic blood 2023-01-16 18:38:00 128 mm[Hg] Dayanara Seybold - pressure External Diastolic blood 2023-01-16 18:38:00 84 mm[Hg] Tu hall Seybold - pressure External Heart rate 2023-01-16 18:38:00 80 /min Dayanara Goldman eybold - External Body temperature 2023-01-16 18:38:00 36.39 Opal Adylin ey Seybold - External Procedures Procedure Date / Time Performed Performing Clinician [facility] CERVICAL SPINE - 2 2023-05-08 16:06:34 Jozef Multani Se - VIEW Jason External Encounters Start End Encounter Admission Attending Care Care Encounter Source Date/Time Date/Time Type Type Clinicians Facility Department ID 2023-07-11 2023-07-11 Outpatient DAYANARA MULTANI [id number] Dayanara 15:45:00 15:45:00 JOZEF Seybol d 2023-07-07 2023-07-07 Outpatient LUCY DAYANARA GREENBERG [id number] Dayanara 00:00:00 00:00:00 LUIS ALFREDO Seybol d 2023-06-19 2023-06-19 Outpatient NEGRA DAYANARA GREENBERG [id number] Dayanara 10:45:00 10:45:00 JOZEF Seybol d 2023-05-23 2023-05-23 Outpatient DAYANARA AYALA [id number] Dayanara 00:00:00 00:00:00 LUIS ALFREDO Seybol d 2023-05-08 2023-05-08 Outpatient DAYANARA GREENBERG [id number] Dayanara 10:40:00 10:40:00 Seybol d 2023-05-08 2023-05-08 Outpatient NITHYADAYANARA SCHOFIELD [id number] Dayanara 09:00:00 09:00:00 JOZEF Seybol d 2023-05-06 2023-05-06 Outpatient DAYANARA AYALA [id number] Dayanara 00:00:00 00:00:00 LUIS ALFREDO Seybol d 2023-04-06 2023-04-06 Emergency EM Minh, HCAPM OSWALD [id number] [facility] 00:30:00 04:50:[address] [facility] 2023-04-04 2023-04-04 Outpatient DAYANARA AYALA [id number] Dayanara 14:00:00 14:00:00 ANGELA Seybol d 2023-03-26 2023-03-26 Outpatient DAYANARA AYALA [id number] Dayanara 00:00:00 00:00:00 ANGELA Seybol d 2023-03-20 2023-03-20 Outpatient DAYANARA AYALA [id number] Dayanara 00:00:00 00:00:00 LUIS ALFREDO Seybol d 2023-03-20 2023-03-20 Outpatient DAYANARA AYALA [id number] Dayanara 00:00:00 00:00:00 ANGELA Seybol d 2023-03-18 2023-03-18 Outpatient DAYANARA AYALA [id number] Dayanara 00:00:00 00:00:00 ANGELA Seybol d 2023-03-14 2023-03-14 Outpatient DAYANARA AYALA [id number] Dayanara 00:00:00 00:00:00 LUIS ALFREDO Seybol d 2023-03-13 2023-03-13 Outpatient HUY DAYANARA GREENBERG [id number] Dayanara 00:00:00 00:00:00 MD IGNACIO Seybol d 2023-03-13 2023-03-13 Outpatient DAYANARA AYALA [id number] Dayanara 00:00:00 00:00:00 LUIS ALFREDO Seybol d 2023-03-11 2023-03-11 Outpatient DAYANARA AYALA [id number] Dayanara 00:00:00 00:00:00 ANGELA Seybol d 2023-03-08 2023-03-08 Outpatient DAYANARA MULTANI [id number] Dayanara 08:45:00 08:45:00 JOZEF Seybol d 2023-03-07 2023-03-07 Outpatient DAYANARA MULTANI [id number] Dayanara 15:15:00 15:15:00 JOZEF Seybol d 2023-03-07 2023-03-07 Outpatient DAYANARA MULTANI [id number] Dayanara 00:00:00 00:00:00 JOZEF Seybol d 2023-03-06 2023-03-06 Outpatient DAYANARA AYALA [id number] Dayanara 00:00:00 00:00:00 LUIS ALFREDO Seybol d 2023-03-05 2023-03-05 Outpatient DAYANARA AYALA [id number] Dayanara 00:00:00 00:00:00 LUIS ALFREDO Seybol d 2023-03-05 2023-03-05 Outpatient DAYANARA AYALA [id number] [facility]anara 00:00:00 00:00:00 LUIS ALFREDO Seybol d 2023-03-01 2023-03-01 Outpatient DAYANARA AYALA [id number] Dayanara 00:00:00 00:00:00 LUIS ALFREDO Seybol d 2023-02-26 2023-02-26 Outpatient DAYANARA RITTERSEY [id number] Dayanara 00:00:00 00:00:00 AFFILIATE Seyb old 2023-02-26 2023-02-26 Outpatient DAYANARA GRAHAM [id number] Dayanara 00:00:00 00:00:00 LASEZEQUIEL Peñaybo ld 2023-02-25 2023-02-25 Emergency E SHARON, MHBL MHBL [id number] MHBL 20:48:00 21:42:00 ISMAIL 2023-02-24 2023-02-24 Outpatient DAYANARA AYALA [id number] Dayanara 00:00:00 00:00:00 LUIS ALFREDO Seybol d 2023-02-11 2023-02-11 Outpatient DAYANARA AYALA [id number] [facility]ara 00:00:00 00:00:00 ANGELA Seybol d 2023-02-11 2023-02-11 Outpatient DAYANARA AYALA [id number] [facility]ara 00:00:00 00:00:00 ANGELA Seybol d 2023-02-11 2023-02-11 Outpatient DAYANARA AYALA [id number] Dayanara 00:00:00 00:00:00 LUIS ALFREDO Seybol d 2023-02-07 2023-02-07 Outpatient LAB47 DAYANARA GREENBERG [id number] Dayanara 13:05:00 13:05:00 Seybol d 2023-02-05 2023-02-05 Outpatient DAYANARA GREENBERG [id number] Dayanara 09:30:00 09:30:00 Seybol d 2023-02-05 2023-02-05 Outpatient DAYANARA GREENBERG [id number] Dayanara 09:25:00 09:25:00 Seybol d 2023-01-31 2023-01-31 Outpatient DAYANARA GREENBERG [id number] Dayanara 14:10:00 14:10:00 Seybol d 2023-01-31 2023-01-31 Outpatient DAYANARA AYALA [id number] Dayanara 14:00:00 14:00:00 ANGELA Seybol d 2023-01-30 2023-01-30 Outpatient HUY GREENBERG [id number] Dayanara 00:00:00 00:00:00 MD IGNACIO Seybol alex 2023-01-29 2023-01-29 Outpatient DAYANARA AYALA DAYANARA [id number] Dayanara 00:00:00 00:00:00 LUIS ALFREDO Seybol d 2023-01-24 2023-01-24 Outpatient DAYANARA AYALA DAYANARA [id number] Dayanara 00:00:00 00:00:00 LUIS ALFREDO Seybol d 2023-01-22 2023-01-22 Outpatient DAYANARA AYALA DAYANARA [id number] Dayanara 00:00:00 00:00:00 LUIS ALFREDO Seybol d 2023-01-18 2023-01-18 Outpatient DAYANARA AYALA DAYANARA [id number] Dayanara 00:00:00 00:00:00 LUIS ALFREDO Seybol d 2023-01-16 2023-01-16 Outpatient DAYANARA AYALA DAYANARA [id number] Dayanara 13:40:00 13:40:00 LUIS ALFREDO Seybol d Results Test Description Test Time Test Comments Results Result Comments Source TROP-I HIGH SENSITIVITY 2023-04-06 03:54:00 Test Item Value Reference Range Interpretation Comme nts TROP-I HIGH 4.0 0-78 N CAUTION: Units of the current test methodology (ng/L) differfrom the SENSITIVITY ng/L prior test meth odology (ng/mL) by a factor of (test code = 1000. 99th TROPIHS) Percentile Uppe r Reference Limit (URL):Females: 54 ng/LMales: 79 ng/L In order to dis tinguish acute elevations of high sensitivitytroponin from other clin ical conditions, the FourthUniversal Definition of Myocardial Infa rction stressesclinical assessment and the demonstration o f a rise and/orfall in serial troponin results above the URL. Result s from different methodologies should not be comparedto one another as quantitative results and URLs may varyby method. - CTA [id number] 03:47:00 [facility] 1970 Sex: M Name: ANGELA DUTTON [facility] : 1970 Age/S: 53 / M [id number] Unit #: [id number] Loc: [place] [address] Phys: Jovanny Wilkinson MD Acct: [id number] Dis Date: Status: REG ER PHONE #: [phone] Exam Date: 04/06/2023 0301 FAX #: Reason: chest pain, radiation to back, R/O dissection EXAMS: CPT: [id number] CTA CHEST 31718 EXAM: - CTA CHEST LOCATION: H57 HISTORY: 53 years-year old Male with chest pain, radiation to back, R/O dissection TECHNIQUE: CT angiography of the chest, abdomen, and pelvis was performed after administration of iodinated contrast. Axial, coronal and sagittal recons tructions were obtained. At least one MIP sequence was provided. Automated exposure reduction (Auto mA/Smart mA) was utilized in compliance with ACR Image Wisely. COMPARISON: None FINDINGS: CTA CHEST: VASCULAR STRUCTURES: The ascending thoracic aorta appears unremarkable. The aortic arch and descending thoracic aorta appear unremarkable. There is no thoracic aortic dissection. The great vessels are unremarkable. The main, right and left pulmonary arteries are normal. There are no central segmental pulmonary emboli noted. The peripheral pulmonary arteries are not well assessed on this exam. The superior vena cava is unremarkable. LUNG PARENCHYMA AND PLEURA: There are no lung nodules. There is no interstitial lung disease. There are no pleural effusions or pneumothorax. AIRWAY: The central airway is normal. MEDIASTINUM: There is no mediastinal lymphadenopathy. HEART: The cardiac chambers appear unremarkable. There is no pericardial effusion. OSSEOUS STRUCTURES: There are no definite significant os seous abnormalities seen. CTA ABDOMEN/PELVIS: PAGE 1 Signed Report (CONTINUED) Name: ANGELA DUTTON : 1970 Age/S: 53 / M [id number] Unit #: [id number] Loc: [place] [address] Phys: Jovanny Wilkinson MD Acct: [id number] Dis Date: Status: REG ER PHONE #: [phone] Exam Date: 04/06/2023 0301 FAX #: Reason: chest pain, radiation to back, R/O dissection EXAMS: CPT: [id number] CTA CHEST 76594 (Continued) ARTERIAL EVALUATION: The abdominal aorta is normal in caliber. The celiac artery, superior mesenteric artery and inferior mesenteric artery origins are widely patent. Bilateral renal arteries are patent. There is no CT evidence of renal artery stenosis. Bilateral commoniliac, internal iliac, and external iliac arteries appear unremarkable. ABDOMINAL SOLID ORGANS: The arterial phase contrast-enhanced images of the liver, spleen, pancreas, adrenals and kidneys are unremarkable. The gallbladder is surgically absent. PERITONEUM AND RETROPERITONEUM: There is no lymphadenopathy. There is no ascites. STOMACH AND BOWEL: The noncontrast opacified stomach and loops of bowel are unremarkable. The lack of orally administered contrast material limits assessment. The appendix is surgically absent. PELVIS: The urinary bladder has a normal appearance given its degree of distention. OSSEOUS STRUCTURES: There are no definite significant osseous abnormalities seen. Posterior hardware fusion of L4-S1. IMPRESSION: 1. No aortic aneurysm or dissection. at 0347 Reported and signed by: Bob Suarez M.D. CC: Jovanny Wilkinson MD Technologist:Winifred Marquis CTDI: DLP: Trnscb Date/Time: 04/06/2023 (346)[email or web address] Orig Print D/T: S: 04/06/2023 (349) PAGE 2 Signed Report- CTA ABD PEL W [id number] 03:37:00 [facility] 1970 Sex: M Name: ANGELA DUTTON [facility] : 1970 Age/S: 53 / M [id number] Unit #: [id number] Loc: [place] [address] Phys: Jovanny Wilkinson MD Acct: [id number] Dis Date: Status: REG ER PHONE #: [phone] Exam Date: 04/06/2023 0301 FAX #: Reason: chest pain, radiation to back, R/O dissection EXAMS: CPT: [id number] CTA ABD PEL W CONT 24021 EXAM: - CTA ABD PEL W CONT LOCATION: H57 HISTORY: 53 years-year old Male with chest pain, radiation to back, R/O dissection TECHNIQUE: CT angiography of the chest, abdomen, and pelvis was performed after administration of iodinated contrast. Axial, coronal and sagittal reconstructions were obtained. At least one MIP sequence was provided. Automated exposure reduction (Auto mA/Smart mA) was utilized in compliance with ACR Image Wisely. COMPARISON: None FINDINGS: CTA CHEST: VASCULAR STRUCTURES: The ascending thoracic aorta appears unremarkable. The aortic arch and descending thoracic aorta appear unremarkable. There is no thoracic aortic dissection. The great vessels are unremarkable. The main, right and left pulmonary arteries are normal. There are no central segmental pulmonary emboli noted. The peripheral pulmonary arteries are not well assessed on this exam. The superior vena cava is unremarkable. LUNG PARENCHYMA AND PLEURA: There are no lung nodules. There is no interstitial lung disease. There are no pleural effusions or pneumothorax. AIRWAY: The central airway is normal. MEDIASTINUM: There is no mediastinal lymphadenopathy. HEART: The cardiac chambers appear unremarkable. There is no pericardial effusion. OSSEOUS STRUCTURES: There are no definite significant osseous abnormalities seen. CTA ABDOMEN/PELVIS: PAGE 1 Signed Report (CONTINUED) [facility] 1970 [facility]/S: 53 / M [id number] Unit #: [id number] Loc: [place] [address] Phys: Jovanny Wilkinson MD Acct: [id number] Dis Date: Status: REG ER PHONE #: [phone] Exam Date: 04/06/2023 0301 FAX #: Reason: chest pain, radiation to back, R/O dissection EXAMS: CPT: [id number] CTA ABD PEL W CONT 38258 (Continued) ARTERIAL EVALUATION: The abdominal aorta is normal in caliber. The celiac artery, superior mesenteric artery and inferior mesenteric artery origins are widely patent. Bilateral renal arteries are patent. There is no CT evidence of renal artery stenosis. Bilateral common iliac, internal iliac, and external iliac arteries appear unremarkable. ABDOMINAL SOLID ORGANS: The arterial phase contrast-enhanced images of the liver, spleen, pancreas, adrenals and kidneys are unremarkable. The gallbladder is surgically absent. PERITONEUM AND RETROPERITONEUM: There is no lymphadenopathy. There is no ascites. STOMACH AND BOWEL: The noncontrast opacified stomach and loops of bowel are unremarkable. The lack of orally administered contrast material limits assessment. The appendix is surgically absent. PELVIS: The urinary bladder has a normal appearance givenits degree of distention. OSSEOUS STRUCTURES: There are no definite significant osseous abnormalities seen. Posterior hardware fusion of L4-S1. IMPRESSION: 1. No aortic aneurysm or dissection. at 0337 Reported and signed by:Bob Suarez M.D. CC: Jovanny Wilkinson MD Technologist:Winifred Marquis CTDI: DLP: Trnscb Date/T amisha: 04/06/2023 (033) [email or web address] Orig Print D/T: S: 04/06/2023 (034) PAGE 2 Signed ReportNT PRO-BRAIN NATRIURETIC [id number] 02:22:00 Test Item Value Reference Range Interpretation Comments NT PRO-BRAIN NATRIURETIC PEPTI < 5 PG/ML 0-100 N (test code = PROBNP) TROP-I HIGH [id number] 01:25:00 Test Item Value Reference Range Interpretation Comments TROP-I HIGH 3.0 ng/L 0-78 N CAUTION: Units of the SENSITIVITY (test current te st methodology code = TROPIHS) (ng/L) diffe rfrom the prior test meth odology (ng/mL) by a fa ctor of 1000. 99t h Percentile Uppe r Reference Limit (URL):Fem ales: 54 ng/LMales: 79 n g/L In order to distin guish acute elevations of h igh sensitivitytrop onin from other clinical conditions, the FourthUnive rsal Definition of M yocardial Infarction stressesclinica l assessment and the demonstration o f a rise and/orfall in s erial troponin result s above the URL. Results fr om different metho dologies should not be c omparedto one another as quantitative re sults and URLs may varyby method. BASIC METABOLIC [id number] 01:25:00 Test Item Value Reference Range Interpretation Comments SODIUM (test code 137 mmol/L 134-147 N = NA) POTASSIUM (test 4.5 mmol/L 3.4-5.0 N code = K) CHLORIDE (test 107 mmol/L 100-108 N code = CL) CARBON DIOXIDE 26 mmol/L 21-32 N (test code = CO2) ANION GAP (test 4.0 GAP calc 4.0-15.0 N code = GAP) GLUCOSE (test code 95 MG/DL 70-110 N = GLU) BLOOD UREA 15 MG/DL 7-18 N NITROGEN (test code = BUN) GLOMERULAR >=60 max >60 The Glomerular FILTRATION RATE estimate estGFR Filtratio n Rate is a (test code = GFR) calculated parameterbased on serum Creatinin e, patient age and sex. GFR valuesless than 60 mL/min/1.73 square meters are ivan cative ofChronic Kidne y Disease. Values less than 15 mL/min/1.73squa re meters indicate Kidney failure. The calculation for GFR is based on the CK D-EPI (2020) calculat ion. This formulais race indifferent and is the recommended formula for GFR by the National Kidney Foundation for Adults.The GFR will not calculate i f the sex is unknown or if thepatient's ag e is <18 years. CREATININE (test 1.0 MG/DL 0.8-1.3 N code = CREAT) CALCIUM (test code 9.2 MG/DL 8.5-10.1 N = CA) HEPATIC FUNCTION [id number] 01:25:00 Test Item Value Reference Range Interpretation Comments TOTAL PROTEIN (test code = PROT) 7.7 G/DL 6.4-8.2 N ALBUMIN (test code = ALB) 3.6 G/DL 3.4-5.0 N BILIRUBIN TOTAL (test code = 0.30 MG/DL 0.2-1.2 N BILT) BILIRUBIN DIRECT (test code = < 0.10 MG/DL 0.00-0.30 N BILD) BILIRUBIN INDIRECT (test code = 0.20 MG/DL 0.2-1.2 N BILIND) SGOT/AST (test code = AST) 19 Unit/L 15-37 N SGPT/ALT (test code = ALT) 32 Unit/L 12-78 N ALKALINE PHOSPHATASE TOTAL (test 117 Unit/L 50-136 N code = ALKP) [id number] 01:25:00 Test Item Value Reference Range Interpretation Comments LIPASE (test code = LIP) 132 Unit/L 114-286 N - XR CHEST 1 [id number] 01:21:00 [facility] 1970 Sex: M Name: ANGELA DUTTON [facility] : 1970 Age/S: 53 / M [id number] Unit #: [id number] Loc: [place] [id number] Phys: Jovanny Wilkinson MD Acct: [id number] Dis Date: Status: REG ER PHONE #: [phone] Exam Date: 04/06/2023 0120 FAX #: Reason: chest pain EXAMS: CPT: [id number] XR CHEST 1 V 97760 Fluoro Time: DAP (Gy m2): Air Kerma (mGy): Examination: One view chest x- ray Location code: H60 Comparison: None Discussion: Clinical history is remarkable for chest pain. Heart is normal in size. Lungs are clear of consolidating infiltrates. No masses, nodules or effusions are noted. Impression: 1.Normal one view chest x-ray. at 0121 Reported and signed by: Taran Saleem M.D. CC: Jovanny Wilkinson MD PAGE 1 Signed Report Name: ANGELA DUTTON [place] : 1970 Age/S: 53 / M [address] Unit #: [id number] Loc: [place] [address] Phys: Jovanny Wilkinson MD Acct: [id number] Dis Date: Status: REG ER PHONE #: [phone] ExamDate: 04/06/2023 0120 FAX #: Reason: chest pain EXAMS: CPT: [id number] XR CHEST 1 V 12388 Fluoro Time: DAP (Gy m2): Air Kerma (mGy): (Continued) Technologist: Winifred Marquis Trnilb Date/Time: 04/06/2023(012) [email or web address] Orig Print D/T: S: 04/06/2023 (0125) PAGE 2 Signed ReportD-DIMER 2023-04-06 01:13:00 Test Item Value Reference Range Interpretation Comments D-DIMER (test 320 ng/mLFEU 215-500 N THROMBOSIS AND /OR PULMONARY code = EMBOLISM AND TH E CLINICAL DDIMER) CUT-OFF VALUE F OR EXCLUSION (500 ng/mL FEU) OF THESE CONDITIONSIS VA LIDATED BY THE MANUFACTURE R OF THE METHOD. A NEGAT ARMEN D-DIMER RESULT WHEN COM BINED WITH A CLINICALASSESSM ENT OF LOW PRETEST PROBABI LITY HAS BEEN SHOWN TO HAVEA HIGH NEGATIVE PREDICTIVE VALU E OF DVT OR PE. D-DIMER SUZY UES >500 ng/mL FEU ARE N OT DIAGNOSTIC FOR DVT, PEor D IC WITHOUT OTHER CONFIRMAT ORY TESTS AND APPROPRIATECLIN ICAL EUALUATIONS. CBC W/O [id number] 00:57:00 Test Item Value Reference Range Interpretation Comments WHITE BLOOD CELL (test code = WBC) 8.6 K/mm3 3.5-11.0 N RED BLOOD CELL (test code = RBC) 5.67 M/mm3 4.70-6.10 N HEMOGLOBIN (test code = HGB) 16.6 G/DL 12.3-15.9 H HEMATOCRIT (test code = HCT) 47.6 % 35.8-46.7 H MEAN CELL VOLUME (test code = MCV) 84.0 Fl 86.3-98.9 L MEAN CELL HGB (test code = MCH) 29.3 pg 28.9-34.4 N MEAN CELL HGB CONCETRATION (test 34.9 G/DL 32.1-34.5 H code = MCHC) RED CELL DISTRIBUTION WIDTH (test 13.4 SD 11.5-14.5 N code = RDW) PLATELET COUNT (test code = PLT) 240 K/mm3 150-450 N MEAN PLATELET VOLUME (test code = 10.70 fL 7.0-9.6 H MPV)
[2023-07-07] MEDS ORDERED: HYDROMORPHONE HCL 1 MG/ML INJ ONE (20:44)
--- NOTE | 2023-07-07 20:44 | RAD REPORT ---
EXAM DESCRIPTION: CT - Spine Lumbar Wo Con - 07/07/2023 8:34 pm CLINICAL HISTORY: pain, numbness, tingling COMPARISON: No comparisons TECHNIQUE: Axial noncontrast CT imaging of the lumbar spine was performed with coronal and sagittal re-formatted images. All CT scans are performed using dose optimization technique as appropriate and may include automated exposure control or mA/KV adjustment according to patient size. FINDINGS: No acute lumbar spine fracture seen. Poorly defined sclerosis present within both the sacr um and iliac bones bilaterally. This is fairly symmetric. Status post L4-5 and L5-S1 anterior and pos terior fusion with interbody grafts. No hardware complications. Paraspinal tissues are normal in thickness. No paraspinal abscess or hematoma seen. Intervertebral disc disease assessment is inherently limited by CT. Within these limitations, no high -grade canal stenosis suspected. IMPRESSION: No lumbar spine fracture identified. Intact fusion hardware. Abnormal sclerosis of the sacral wings and iliac bones bilaterally. This finding is nonspecific but c ould be related to prior radiation changes correlate clinically.
[2023-07-07] MEDS ORDERED: dexAMETHasone 10 MG/ML VIAL ONE (20:45)
[2023-07-07] MEDS ORDERED: ONDANSETRON 4 MG/2 ML VIAL ONE (20:45)
[2023-07-07] MEDS ORDERED: KETOROLAC 30 MG/ML INJ ONE (20:45)
--- NOTE | 2023-07-07 21:40 | EDPHYS ---
Physician Documentation [facility] Name: Parth Jerez Age: 53 yrs Sex: Male : 1970 Arrival Date: 07/07/2023 Time: 19:59 Bed 5 Private MD: RIANA Physician Haseeb Nixon HPI: 07/07 20:21 This 53 yrs old Male presents to ER via Ambulatory with complaints of Back Pain, Fall sb4 Injury. 20:21 The patient presents with pain that is acute, and an injury. The symptoms are located sb4 in the low back. Onset: The symptoms/episode began/occurred 3 day(s) ago. The pain radiates to the right leg and left leg. Associated signs and symptoms: Pertinent positives: numbness, tingling, Pertinent negatives: incontinence, urinary retention. The problem was sustained when bending over, during a fall. Modifying factors: The patient symptoms are alleviated by remaining still, rest, the patient symptoms are aggravated by bending, standing, walking. Historical: - Allergies: 20:14 NKDA; mb9 - Home Meds: 20:14 gabapentin 300 mg oral capsule [Active]; mb9 - PMHx: 20:14 Back pain; ruptured L upper lung when 19; fall 30 feet; pleurisy; Pneumothorax; mb9 - PSHx: 20:14 back surgery; hernia repair; mb9 - Immunization history:: Adult Immunizations up to date. - Social history:: Smoking status: Patient reports the use of cigarette tobacco products, smokes one-half pack cigarettes per day. ROS: 20:22 Constitutional: Negative for fever, chills, and weight loss, sb4 20:22 Back: Positive for injury or acute deformity, pain at rest, pain with movement, radiated pain, 20:22 All other systems are negative, Exam: 20:23 Constitutional: This is a well developed, well nourished patient who is awake, alert, sb4 and in no acute distress. Head/Face: Normocephalic, atraumatic. Eyes: Extra-ocular motions intact. Periorbital areas with no swelling, redness, or edema. ENT: Mucous membranes moist. Skin: Warm, dry with normal turgor. Normal color with no rashes, no lesions, and no evidence of cellulitis. MS/ Extremity: Pulses equal, no cyanosis. Neurovascular intact. Full, normal range of motion. 20:23 Back: pain, that is moderate, of the lumbar area, ROM is painful, normal spinal alignment noted, CVA tenderness, is absent, vertebral tenderness, is not appreciated, Straight leg raises: pain bilaterally, 20:23 Neuro: Motor: is normal, Sensation: is normal, no obvious gross deficits, Gait: limited by pain, Vital Signs: 20:13 BP 126 / 87; Pulse 62; Resp 18; Temp 98; Pulse Ox 98% on R/A; Weight 133.81 kg; Height mb9 6 ft. 2 in. ; Pain 9/10; 21:52 BP 131 / 75; Pulse 75; Resp 19; Pulse Ox 99% ; bp 20:13 Body Mass Index 37.88 (133.81 kg, 187.96 cm) mb9 20:13 Pain Scale: Adult mb9 MDM: 20:07 Patient medically screened. sb4 20:24 Differential diagnosis: Fracture Joint Injury ruptured disc, spinal injury, sprain, sb4 vertebral fracture. 21:38 Data reviewed: vital signs, nurses notes, radiologic studies, and as a result, I will sb4 discharge patient. Counseling: I had a detailed discussion with the patient and/or guardian regarding the historical points, exam findings, and any diagnostic results supporting the discharge/admit diagnosis, radiology results, the need for outpatient follow up, spine, to return to the emergency department if symptoms worsen or persist or if there are any questions or concerns that arise at home. 07/07 20:22 Order name: Spine Lumbar Wo Con; Complete Time: 20:46 EDMS 07/07 20:19 Order name: IV Start; Complete Time: 20:48 sb4 Administered Medications: 20:48 Drug: HYDROmorphone IVP 1 mg IVP once Route: IVP; Site: right forearm; bp 21:51 Follow up: Response: No adverse reaction; Pain is decreased bp 20:48 Drug: Decadron - Dexamethasone IVP 10 mg IVP once Route: IVP; Site: right forearm; bp 21:51 Follow up: Response: No adverse reaction bp 20:48 Drug: Ketorolac IVP 30 mg IVP once Route: IVP; Site: right forearm; bp 21:51 Follow up: Response: No adverse reaction; Pain is decreased bp 20:48 Drug: Ondansetron IVP 4 mg IVP once; over 2 minutes Route: IVP; Site: right forearm; bp 21:52 Follow up: Response: No adverse reaction bp Disposition Summary: 07/07/23 21:39 Discharge Ordered Notes: Location: Home sb4 Problem: an acute exacerbation sb4 Symptoms: have improved sb4 Condition: Stable sb4 Diagnosis - Strain of muscle, fascia and tendon of lower back sb4 Followup: sb4 - With: Private Physician - When: As needed - Reason: Further diagnostic work-up, Recheck today's complaints, Re-evaluation by your physician Discharge Instructions: - Discharge Summary Sheet sb4 - Acute Back Pain, Adult sb4 Forms: - Medication Reconciliation Form sb4 - Thank You Letter sb4 - Antibiotic Education sb4 - Prescription Opioid Use sb4 - Patient Portal Instructions sb4 - Leadership Thank You Letter sb4 Prescriptions: - acetaminophen-codeine 300-30 mg Oral tablet - take 1 tablet ORAL route every 6 hours as needed for pain; 15 tablet; Refills: sb4 0, Product Selection Permitted - Cyclobenzaprine 10 mg Oral Tablet - take 1 tablet ORAL route every 8 hours As needed; 30 tablet; Refills: 0, sb4 Product Selection Permitted - Medrol (Carlos) 4 mg Oral Tablets, Dose Pack - take 1 tablet ORAL route as directed - follow package instructions; 1 packet; sb4 Refills: 0, Product Selection Permitted Signatures: Dispatcher [employer] Manjeet Love, RN RN Anita Oliver PA-C PA-C sb4 Radha Rios RN RN mb9 Corrections: (The following items were deleted from the chart) 20:15 20:14 PMHx: fall 30 feet; mb9 mb9 20:15 20:14 PMHx: fall 30 feet; mb9 mb9 20:15 20:14 PMHx: fall 30 feet; mb9 mb9 20:15 20:14 PMHx: ruptured L upper lung when 19; mb9 mb9
--- NOTE | 2023-07-07 21:40 | ER ---
Nurse's Notes [facility] Name: Parth Jerez Age: 53 yrs Sex: Male : 1970 Arrival Date: 07/07/2023 Time: 19:59 Bed 5 Private MD: Diagnosis: Strain of muscle, fascia and tendon of lower back Presentation: 07/07 20:13 Chief complaint: Patient states: "3 days ago, I fell getting out of the tub and hurt my mb9 lower middle back. It's like a sharp shooting pain that goes to both legs.". Coronavirus screen: Vaccine status: Patient reports being unvaccinated. Ebola Screen: No symptoms or risks identified at this time. Initial Sepsis Screen: Does the patient meet any 2 criteria? No. Patient's initial sepsis screen is negative. Does the patient have a suspected source of infection? No. Patient's initial sepsis screen is negative. Risk Assessment: Do you want to hurt yourself or someone else? Patient reports no desire to harm self or others. Onset of symptoms was July 07, 2023. 20:13 Method Of Arrival: Ambulatory mb9 20:13 Acuity: CARMENCITA 3 mb9 Triage Assessment: 20:15 General: Appears uncomfortable, Behavior is calm, cooperative. Pain: Complains of pain mb9 in back Pain radiates to right leg and left leg Pain currently is 9 out of 10 on a pain scale. Quality of pain is described as sharp, shooting, Pain began 2-3 days ago. Is continuous, Aggravated by increased activity, repositioning, weight bearing. Neuro: Good Agitation-Sedation Scale (RASS): 0 - Alert and Calm Level of Consciousness is awake, alert, obeys commands, Oriented to person, place, time, situation, Appropriate for age. Cardiovascular: Patient's skin is warm and dry. Respiratory: Airway is patent Respiratory effort is even, unlabored, Respiratory pattern is regular, symmetrical. Derm: Skin is pink, warm \\T\\ dry. Musculoskeletal: Range of motion: intact in all extremities. Historical: - Allergies: 20:14 NKDA; mb9 - Home Meds: 20:14 gabapentin 300 mg oral capsule [Active]; mb9 - PMHx: 20:14 Back pain; ruptured L upper lung when 19; fall 30 feet; pleurisy; Pneumothorax; mb9 - PSHx: 20:14 back surgery; hernia repair; mb9 - Immunization history:: Adult Immunizations up to date. - Social history:: Smoking status: Patient reports the use of cigarette tobacco products, smokes one-half pack cigarettes per day. Screenin:20 [facility] ED Fall Risk Assessment (Adult) History of falling in the last 3 months, bp including since admission No falls in past 3 months (0 pts). Abuse screen: Denies threats or abuse. Denies injuries from another. Nutritional screening: No deficits noted. Tuberculosis screening: No symptoms or risk factors identified. Assessment: 20:15 General: SEE TRIAGE NOTE. bp 21:20 Reassessment: Patient appears in no apparent distress at this time. Patient is alert, bp oriented x 3, equal unlabored respirations, skin warm/dry/pink. Neuro: Level of Consciousness is awake, alert, obeys commands, Oriented to Appropriate for age. Vital Signs: 20:13 BP 126 / 87; Pulse 62; Resp 18; Temp 98; Pulse Ox 98% on R/A; Weight 133.81 kg; Height mb9 6 ft. 2 in. ; Pain 9/10; 21:52 BP 131 / 75; Pulse 75; Resp 19; Pulse Ox 99% ; bp 20:13 Body Mass Index 37.88 (133.81 kg, 187.96 cm) mb9 20:13 Pain Scale: Adult mb9 ED Course: 20:05 Patient arrived in ED. gm2 20:07 Anita Riley PA-C is PHCP. sb4 20:07 Haseeb Nixon MD is Attending Physician. sb4 20:13 Arm band placed on. mb9 20:14 Triage completed. mb9 20:28 Manjeet Delong, RN is Primary Nurse. bp 20:34 Spine Lumbar Wo Con In Process Unspecified. EDMS 20:48 Inserted saline lock: 22 gauge in right forearm, using aseptic technique. bp 21:20 Patient has correct armband on for positive identification. Bed in low position. Call bp light in reach. Side rails up X2. 21:52 No provider procedures requiring assistance completed. IV discontinued, intact, bp bleeding controlled, No redness/swelling at site. Pressure dressing applied. Administered Medications: 20:48 Drug: HYDROmorphone IVP 1 mg IVP once Route: IVP; Site: right forearm; bp 21:51 Follow up: Response: No adverse reaction; Pain is decreased bp 20:48 Drug: Decadron - Dexamethasone IVP 10 mg IVP once Route: IVP; Site: right forearm; bp 21:51 Follow up: Response: No adverse reaction bp 20:48 Drug: Ketorolac IVP 30 mg IVP once Route: IVP; Site: right forearm; bp 21:51 Follow up: Response: No adverse reaction; Pain is decreased bp 20:48 Drug: Ondansetron IVP 4 mg IVP once; over 2 minutes Route: IVP; Site: right forearm; bp 21:52 Follow up: Response: No adverse reaction bp Outcome: 21:39 Discharge ordered by . sb4 21:52 Discharged to home ambulatory, bp 21:52 Condition: stable 21:52 Discharge instructions given to patient, Instructed on discharge instructions, follow up and referral plans. medication usage, Demonstrated understanding of instructions, follow-up care, medications, Prescriptions given X 3, 21:53 Patient left the ED. bp Signatures: Dispatcher [employer] EDMS Manjeet Delong, RN RN Anita Oliver, PA-C PA-C sb4 Radha Rios RN RN [email or web address] Jess Dash gm2 Corrections: (The following items were deleted from the chart) 20:15 20:14 PMHx: fall 30 feet; mb9 mb9 20:15 20:14 PMHx: fall 30 feet; mb9 mb9 20:15 20:14 PMHx: fall 30 feet; mb9 mb9 20:15 20:14 PMHx: ruptured L upper lung when 19; mb9 mb9 20:21 20:13 Acuity: CARMENCITA 4 mb9 mb9
[2023-07-07 22:17] VITALS: TEMP 98
[2023-07-07 22:18] VITALS: BP 131/75; O2SAT 99
== END 2023-07-07 21:53 | disposition home or self-care (01) ==
LOC: ER 19:59
DX: S39.012A Strain of muscle, fascia and tendon of lower back, initial encounter (principal); F17.210 Nicotine dependence, cigarettes, uncomplicated
CPT/HCPCS: 72131; 96375; 96374; 99284; J1100; J1170; J2405

== ENCOUNTER 2023-10-04 23:43 | Emergency (ER) | payer OTHER ==
--- OUTSIDE RECORDS SUMMARY | 2023-10-04 23:47 | XMS REPORT | Continuity of Care Document ---
Author Name Unknown Address [address] [place] [address] [employer] Address [address] [place] [address] Care Team Providers Care Pmo Consultant Name Role Phone Unavailable Unavailable Unavailable
[2023-10-05] MEDS ORDERED: FAMOTIDINE 20 MG/2 ML VIAL IV ONE (00:06)
[2023-10-05] MEDS ORDERED: NA CHLORIDE 0.9% 1,000 ML ONE (00:06)
[2023-10-05 00:28] LABS: Absolute Lymphocytes (CBC) 2.3 K/uL (0.7-4.9); Hematocrit 45.4 % (39.6-49.0); Lymphocytes % 33.7 % (15.3-44.8); MCV 87.4 fL (80-100); MPV 8.2 fL (7.6-11.3); Platelets 222 thou/uL (152-406); RBC Red Blood Cell Count 5.19 M/uL (4.33-5.43)
[2023-10-05 00:47] LABS: Albumin 3.4 g/dL (3.4-5.0); Bilirubin Total 0.2 mg/dL (0.2-1.0); Potassium 3.9 mEq/L (3.5-5.1); Protein, Total 7.6 g/dL (6.4-8.2); Troponin High Sensitivity 4.5 pg/mL (<58.9)
[2023-10-05] MEDS ORDERED: MAGNES/ALUMIN/SIMET 30ML UCUP ONE (01:16)
[2023-10-05] MEDS ORDERED: ONDANSETRON 4 MG/2 ML VIAL ONE (01:16)
[2023-10-05] MEDS ORDERED: MORPHINE 4 MG/ML SYR ONE (01:17)
--- NOTE | 2023-10-05 02:02 | ER ---
Nurse's Notes [facility] Name: Parth Jerez Age: 53 yrs Sex: Male : 1970 Arrival Date: 10/04/2023 Time: 23:43 Bed 5 Private MD: Diagnosis: Epigastric pain Presentation: 10/05 00:03 Chief complaint: Patient states: 3 days of epigastric pain that radiates to the left km8 upper quadrant; pt denies n/v/d; pain gets worse with eating or drinking anything; hx of cholecystectomy. Coronavirus screen: Client denies travel out of the [place] in the last 14 days. Ebola Screen: No symptoms or risks identified at this time. Initial Sepsis Screen: Does the patient meet any 2 criteria? No. Patient's initial sepsis screen is negative. Does the patient have a suspected source of infection? No. Patient's initial sepsis screen is negative. Risk Assessment: Do you want to hurt yourself or someone else? Patient reports no desire to harm self or others. Onset of symptoms was October 02, 2023. 00:03 Method Of Arrival: Ambulatory km8 00:03 Acuity: CARMENCITA 3 km8 Triage Assessment: 00:06 General: Appears in no apparent distress. uncomfortable, Behavior is cooperative, km8 appropriate for age, anxious. Pain: Complains of pain in epigastric area Pain currently is 7 out of 10 on a pain scale. Aggravated by eating, drinking. EENT: No signs and/or symptoms were reported regarding the EENT system. Neuro: Level of Consciousness is awake, alert, obeys commands, Oriented to person, place, time, situation. Cardiovascular: Denies chest pain, shortness of breath, Capillary refill < 3 seconds Patient's skin is warm and dry. Respiratory: Airway is patent Respiratory effort is even, unlabored, Respiratory pattern is regular, symmetrical. GI: Abdomen is obese, Abdomen is tender to palpation in epigastric area Reports upper abdominal pain, Pain is 7 out of 10 on a pain scale. : No signs and/or symptoms were reported regarding the genitourinary system. Derm: Skin is intact, is healthy with good turgor, Skin is dry, Skin is pink, warm \T\ dry. normal, Skin temperature is warm. Musculoskeletal: No signs and/or symptoms reported regarding the musculoskeletal system. Circulation, motion, and sensation intact. Range of motion: intact in all extremities. Historical: - Allergies: 00:05 NKDA; km8 - Home Meds: 00:06 None [Active]; km8 - PMHx: 00:05 Back pain; fall 30 feet; pleurisy; Pneumothorax; ruptured L upper lung when 19; km8 - PSHx: 00:05 back surgery; hernia repair; Cholecystectomy; left upper lung lobectomy; km8 - Immunization history:: Client reports having NOT received the Covid vaccine. Flu vaccine is not up to date. - Social history:: Smoking status: Patient reports the use of cigarette tobacco products, smokes one-half pack cigarettes per day, Patient/guardian denies using alcohol, the patient reports quitting approximately [address] drugs. Screenin:08 [facility] ED Fall Risk Assessment (Adult) History of falling in the last 3 months, km8 including since admission No falls in past 3 months (0 pts) Confusion or Disorientation No (0 pts) Intoxicated or Sedated No (0 pts) Impaired Gait No (0 pts) Mobility Assist Device Used No (0 pt) Altered Elimination No (0 pt) Score/Fall Risk Level 0 - 2 = Low Risk Oriented to surroundings, Maintained a safe environment, Educated pt \T\ family on fall prevention, incl call for assistance when getting out of bed, Assessed \T\ reinforced patient's understanding of fall precautions. Abuse screen: Denies threats or abuse. Denies injuries from another. Nutritional screening: No deficits noted. Tuberculosis screening: No symptoms or risk factors identified. Assessment: 00:08 General: see triage assessment/notes. GI: Bowel sounds present X 4 quads. 8 01:15 Reassessment: Patient appears in no apparent distress at this time. No changes from jw7 previously documented assessment. Patient and/or family updated on plan of care and expected duration. Pain level reassessed. Patient is alert, oriented x 3, equal unlabored respirations, skin warm/dry/pink. 02:00 Reassessment: Patient appears in no apparent distress at this time. Patient and/or 8 family updated on plan of care and expected duration. Pain level reassessed. Patient is alert, oriented x 3, equal unlabored respirations, skin warm/dry/pink. Patient states symptoms have improved. Vital Signs: 00:03 BP 150 / 86; Pulse 61; Resp 16; Temp 98(IR); Pulse Ox 98% on R/A; Weight 145.15 kg (R); km8 Height 6 ft. 2 in. (R); Pain 7/10; 01:29 BP 129 / 65; Pulse 58; Resp 18 S; Pulse Ox 98% on R/A; jw7 02:06 BP 132 / 92; Pulse 62; Resp 16; Pulse Ox 99% on R/A; Pain 3/10; km8 00:03 Body Mass Index 41.09 (145.15 kg, 187.96 cm) km8 00:03 Pain Scale: Adult km8 02:06 Pain Scale: Adult km8 [place] Coma Score: 00:08 Eye Response: spontaneous(4). Motor Response: obeys commands(6). Verbal Response: km8 oriented(5). Total: 15. ED Course: 10/04 23:55 Patient arrived in ED. gm2 23:57 Alka Sultana FNP-C [facility]. kb 23:57 Ronan Avendano MD is Attending Physician. kb 10/05 00:05 Triage completed. km8 00:06 Arm band placed on right wrist. km8 00:08 Patient has correct armband on for positive identification. Placed in gown. Bed in low km8 position. Call light in reach. Side rails up X2. Pulse ox on. NIBP on. 00:08 No provider procedures requiring assistance completed. Patient maintains SpO2 km8 saturation greater than 95% on room air. 00:23 Initial lab(s) drawn, by me, sent to lab. EKG done, by ED staff, reviewed by Alka SAWYER. Inserted saline lock: 20 gauge in right antecubital area, using aseptic technique. Blood collected. 00:40 Abby Ervin, CATHLEEN is Primary Nurse. km8 01:30 CT Abd/Pelvis - IV Contrast Only In Process Unspecified. EDMS 02:00 Mushtaq Blankenship MD is Referral Physician. rt 02:00 Milind Johnston MD is Referral Physician. rt 02:07 Provided Education on: d/c teaching. km8 02:07 IV discontinued, intact, bleeding controlled, No redness/swelling at site. Pressure km8 dressing applied. Administered Medications: 00:23 Drug: NS 0.9% IV 1000 ml IV at 1 bolus Per protocol; 1000 mL bolus Route: IV; Rate: 1 jw7 bolus; Site: right antecubital; 02:08 Follow up: IV Status: Completed infusion; IV Intake: 1000ml 00:23 Drug: Famotidine IVP 20 mg IVP once; dilute with 10 mL 0.9% NaCl; give over 2 minutes jw7 Route: IVP; Site: right antecubital; 01:32 Follow up: Response: No adverse reaction 8 01:32 Drug: Alum-Mag Hydroxide-Simeth PO Suspension (200 mg-200 mg-20 mg/5 mL) 30 ml PO once km8 Route: PO; 02:08 Follow up: Response: No adverse reaction 01:32 Drug: morphine IVP or IV 4 mg IVP once over 4 mins Route: IVP; Infused Over: 4 mins; km8 Site: right antecubital; 02:07 Follow up: Response: No adverse reaction; Pain is decreased 01:32 Drug: Ondansetron IVP 4 mg IVP once; over 2 minutes Route: IVP; Site: right antecubital;km8 02:07 Follow up: Response: No adverse reaction km8 Medication: 00:08 VIS not applicable for this client. km8 Intake: 02:08 IV: 1000ml; Total: 1000ml. Outcome: 02:00 Discharge ordered by . rt 02:07 Discharged to home ambulatory, 02:07 Condition: good 02:07 Discharge instructions given to patient, Instructed on discharge instructions, follow up and referral plans. medication usage, Demonstrated understanding of instructions, follow-up care, medications, Prescriptions given X 2, 02:08 Patient left the ED. Signatures: Dispatcher [employer] EDMS Alka Sultana, RADIO INSTALLERDanieleC ALLIE-Cami Mitchell RN RN jw7 Ronan Avendano MD MD rt Jess Dash 2 Abby Ervin RN RN km8 Corrections: (The following items were deleted from the chart) 00:06 00:05 Home Meds: gabapentin 300 mg Oral capsule [Inactive]; 00:06 00:05 PMHx: ruptured L upper lung when 19, had it removed; 00:06 00:05 PMHx: fall 30 feet, fx to L4L5; km8 km8
--- NOTE | 2023-10-05 02:02 | EDPHYS ---
Physician Documentation [facility] Name: Parth Jerez Age: 53 yrs Sex: Male : 1970 Arrival Date: 10/04/2023 Time: 23:43 Bed 5 Private MD: ED Physician Ronan Avendano HPI: 10/05 00:07 This 53 yrs old Male presents to ER via Ambulatory with complaints of Abdominal Pain. kb 00:07 Pt is a 53 year old male who presents with epigastric pain for 3 days that is worse kb after eating or drinking anything. Denies n/v/d, fever. Historical: - Allergies: 00:05 NKDA; km8 - Home Meds: 00:06 None [Active]; km8 - PMHx: 00:05 Back pain; fall 30 feet; pleurisy; Pneumothorax; ruptured L upper lung when 19; km8 - PSHx: 00:05 back surgery; hernia repair; Cholecystectomy; left upper lung lobectomy; km8 - Immunization history:: Client reports having NOT received the Covid vaccine. Flu vaccine is not up to date. - Social history:: Smoking status: Patient reports the use of cigarette tobacco products, smokes one-half pack cigarettes per day, Patient/guardian denies using alcohol, the patient reports quitting approximately [address] ago, [address] drugs. ROS: 00:06 Constitutional: Negative for fever, chills, and weight loss, kb 00:06 Abdomen/GI: Positive for abdominal pain, Negative for nausea, vomiting, and diarrhea, 00:06 All other systems are negative, Exam: 00:06 Constitutional: This is a well developed, well nourished patient who is awake, alert, kb and in no acute distress. Head/Face: Normocephalic, atraumatic. Cardiovascular: Regular rate Respiratory: Respirations even and unlabored. No increased work of breathing. Talking in full sentences Skin: Warm, dry with normal turgor. Normal color. MS/ Extremity: Pulses equal, no cyanosis. Neurovascular intact. Full, normal range of motion. Neuro: Awake and alert, GCS 15, oriented to person, place, time, and situation. Moves all extremities. Normal gait. 00:06 Abdomen/GI: Inspection: abdomen appears normal, Bowel sounds: normal, Palpation: soft, in all quadrants, mild abdominal tenderness, in the epigastric area and right upper quadrant, 00:16 ECG was reviewed by the Attending Physician. kb Vital Signs: 00:03 BP 150 / 86; Pulse 61; Resp 16; Temp 98(IR); Pulse Ox 98% on R/A; Weight 145.15 kg (R); km8 Height 6 ft. 2 in. (R); Pain 7/10; 01:29 BP 129 / 65; Pulse 58; Resp 18 S; Pulse Ox 98% on R/A; jw7 02:06 BP 132 / 92; Pulse 62; Resp 16; Pulse Ox 99% on R/A; Pain 3/10; km8 00:03 Body Mass Index 41.09 (145.15 kg, 187.96 cm) km8 00:03 Pain Scale: Adult km8 02:06 Pain Scale: Adult km8 Jerry Coma Score: 00:08 Eye Response: spontaneous(4). Motor Response: obeys commands(6). Verbal Response: km8 oriented(5). Total: 15. MDM: 10/04 23:57 Patient medically screened. kb 01 00:08 Data reviewed: vital signs, nurses notes. kb 00:29 Transition of care: After a detail discussion of the patient's case, care is kb transferred to Ronan Avendano MD. 10/05 00:01 Order name: CBC with Diff; Complete Time: 00:29 kb 10/05 00:01 Order name: CMP; Complete Time: 00:47 kb 10/05 00:01 Order name: Lipase; Complete Time: 00:47 kb 10/05 00:01 Order name: Troponin High Sensitivity; Complete Time: 00:47 kb 10/05 00:01 Order name: CT Abd/Pelvis - IV Contrast Only kb 10/05 00:01 Order name: EKG; Complete Time: 00:02 kb 10/05 00:01 Order name: IV Saline Lock; Complete Time: 00:23 kb 10/05 00:01 Order name: Labs collected and sent; Complete Time: 00:23 kb 10/05 00:01 Order name: EKG - Nurse/Tech; Complete Time: 00:23 kb EC:16 Rate is 68 beats/min. Rhythm is regular. QRS [place] is Normal. [place] interval is normal at kb 166 msec. QRS interval is normal at 100 msec. QT interval is normal at 418 msec. Administered Medications: 00:23 Drug: NS 0.9% IV 1000 ml IV at 1 bolus Per protocol; 1000 mL bolus Route: IV; Rate: 1 jw7 bolus; Site: right antecubital; 02:08 Follow up: IV Status: Completed infusion; IV Intake: 1000ml 00:23 Drug: Famotidine IVP 20 mg IVP once; dilute with 10 mL 0.9% NaCl; give over 2 minutes jw7 Route: IVP; Site: right antecubital; 01:32 Follow up: Response: No adverse reaction 01:32 Drug: Alum-Mag Hydroxide-Simeth PO Suspension (200 mg-200 mg-20 mg/5 mL) 30 ml PO once 8 Route: PO; 02:08 Follow up: Response: No adverse reaction :32 Drug: morphine IVP or IV 4 mg IVP once over 4 mins Route: IVP; Infused Over: 4 mins; 8 Site: right antecubital; 02:07 Follow up: Response: No adverse reaction; Pain is decreased :32 Drug: Ondansetron IVP 4 mg IVP once; over 2 minutes Route: IVP; Site: right antecubital;8 02:07 Follow up: Response: No adverse reaction 8 Disposition: 02:05 Co-signature as Attending Physician, Ronan Avendano MD I reviewed the patient's care rt provided by Advanced Practice Provider \T\ agree w/ the diagnosis \T\ care plan. I personally saw the pt \T\ performed a substantive portion of the visit, incldng all aspects of the (History/Exam/Medical Decision Making). PA/ELECTROLYSIS INVESTIGATOR's history reviewed, patient interviewed, and examined. HPI: Patient is having this pain after eating or drinking the past 3 days My personal exam of patient reveals: No acute distress Symptoms are improving with treatment in the ED. Patient instructed to follow-up with gastroenterology for nonemergent endoscopy, will start PPI. Return precautions discussed. Disposition Summary: 10/05/23 02:00 Discharge Ordered Notes: Location: Home rt Problem: new rt Symptoms: have improved rt Condition: Stable rt Diagnosis - Epigastric pain rt Followup: rt - With: Mushtaq Blankenship MD - When: 2 - 3 days - Reason: Followup: rt - With: Milind Johnston MD - When: 2 - 3 days - Reason: Discharge Instructions: - Discharge Summary Sheet rt - Abdominal Pain, Adult rt - Upper Endoscopy, Adult rt Forms: - Medication Reconciliation Form rt - Thank You Letter rt - Antibiotic Education rt - Prescription Opioid Use rt - Patient Portal Instructions rt - Leadership Thank You Letter rt Prescriptions: - Carafate 1 gram Oral tablet - take 1 tablet ORAL route 4 times per day as needed for abdominal pain; 30 rt tablet; Refills: 0, Product Selection Permitted - Protonix 40 mg Oral Tablet - take 1 tablet ORAL route once daily; 30 tablet; Refills: 0, Product Selection rt Permitted Signatures: Dispatcher [employer] EDMS Alka Sultana, ALLIE-C CURBSTONE SETTERCami Saul RN RN jw7 Ronan Avendano MD MD rt Abby Ervin RN RN km8 Corrections: (The following items were deleted from the chart) 00:06 00:05 Home Meds: gabapentin 300 mg Oral capsule [Inactive]; [facility] 00:06 00:05 PMHx: ruptured L upper lung when 19, had it removed; [facility] 00:06 00:05 PMHx: fall 30 feet, fx to L4L5; [facility]
[2023-10-05 06:55] VITALS: TEMP 98
[2023-10-05 07:06] VITALS: BP 132/92; O2SAT 99
--- NOTE | 2023-10-05 21:22 | RAD REPORT ---
EXAM DESCRIPTION: Abdomen Pelvis W Contrast RadLex: CT ABDOMEN PELVIS WITH IV CONTRAST CLINICAL HISTORY: 53 years Male; ABD PAIN; IV ONLY Bed Name: 5 TECHNIQUE: CT of the abdomen and pelvis with intravenous contrast. All CT scans at this facility use dose modulation, iterative reconstruction, and/or weight based dosi ng when appropriate to reduce radiation dose to as low as reasonably achievable. COMPARISON: None. FINDINGS: Lower thorax: Lung bases are clear Abdomen: Stomach: Within normal limits Liver: No focal lesions. No intrahepatic ductal distention. Gallbladder: Surgically absent. Pancreas: Within normal limits Spleen: Within normal limits Right kidney: No hydronephrosis. Ovoid hypodensity, likely cyst. Left kidney: No hydronephrosis. No focal lesion. Adrenal glands: Within normal limits Vascular structures: Atherosclerosis of the abdominal aorta and major branches. Nodes: No lymphadenopathy by size criteria Pelvis: Small bowel: No significant distention. Appendix: The visualized. No pericecal inflammatory changes. Colon: No distention or acute pericolonic edema. Peritoneum: No free intraperitoneal fluid or air. Bones: No acute bone findings. Anterior and posterior fusion spanning L4-S1 with superimposed posteri or decompression. Sclerosis along the bilateral sacroiliac joints with subchondral irregularity. Bladder: Underdistended, limiting evaluation. Reproductive organs: No acute findings. IMPRESSION: 1. No acute abdominopelvic findings. 2. Sclerosis along the bilateral sacroiliac joints with subchondral irregularity, can be seen in se tting of sacroiliitis. Electronically signed by: Mehdi Arellano MD 10/05/2023 01:42 AM WIRE COMMUNICATIONS ENGINEER Due to temporary technical issues with the PACS/Fluency reporting system, reports are being signed by the in house radiologists without review as a courtesy to insure prompt reporting. The interpreting radiologist is fully responsible for the content of the report.
--- NOTE | 2023-10-07 12:27 | EKG ---
Test Date: 2023-10-05 Test Time: 00:14:15 Elder Counselor: TOBIAS MEASUREMENT RESULTS: Intervals: Rate: 68 [place]: 166 QRSD: 100 QT: 394 QTc: 418 [place]: P: 51 [place]: 166 QRS: 44 T: 44 INTERPRETIVE STATEMENTS: Normal sinus rhythm Normal ECG Compared to ECG 03/01/2020 21:20:08 No significant changes Electronically Signed On 10-07-23 12:21:25 FINANCIAL ASSOCIATE by Dean Honeycutt
== END 2023-10-05 02:08 | disposition home or self-care (01) ==
LOC: ER 23:43
DX: R10.13 Epigastric pain (principal); F17.210 Nicotine dependence, cigarettes, uncomplicated
CPT/HCPCS: 96361; 93005; 74177; 96375; 96374; 99285; Q9967

== ENCOUNTER 2024-06-16 05:05 | Emergency (ER) | payer SELFPAY ==
--- OUTSIDE RECORDS SUMMARY | 2024-06-16 05:08 | XMS REPORT | Continuity of Care Document ---
Author Name Unknown Address [address] [facility] [address] [place] [address] [facility] thconnect Address [address] [facility] [address] [place] [address] Care Team Providers Care Neck Cutter Name Role Phone Poornima Tobi Robles Attending Clinician Unavailable JOZEF MULTANI Attending Clinician UnaLUIS ALFREDO Schwartz Attending Clinician Unavailable GLORIA MANDUJANO Attending Clinician Unavailable Jovanny Wilkinson Attending Clinician Unavailable ANGELA AYALA Attending Clinician Unavailraul HENDERSON MD Attending Clinician Unavailab le PROVIDER, AFFILIATE Attending Clinician Unavaila LONDON Fulton Attending Clinician Unavail able GISSELL HERRERA Attending Clinician Tayler nicko MORAN47 Attending Clinician Unavailable RAYNA GUILLAUME Admitting Clinician Unavailnasreen barragan Payers Payer Name Policy Type Policy Number Effective Date Expirati on Date Source ROSANA [employer] 94 ON 9 [id number] 2022 00:00:00 Problems Condition Name Condition Details Condition Category Status Onset Date Resolution Date Last Treatment Date Treating Clinician Comments Source Chronic low back pain with left-sided sciatica Chronic low back pain with left-sided sciatica Disease Active 01-16:00: 00 Dayanara Sanabria Externa l Degenerati on of lumbar or lumbosacra l interverte bral disc Degenerati on of lumbar or lumbosacra l interverte bral disc Disease Active 01-16 00:00: 00 Dayanara Vernon - Externa l Allergies, Adverse Reactions, Alerts Allergy Name Allergy Type Status Severity Reaction(s) Onset Date Inactive Date Treating Clinician Comments Source No Known Allergie s DA Active U 04-14 00:00: 00 [facility] No Known Allergie s DA Active U 04-06 00:00: 00 [facility] Social History Social Habit Start Date Stop Date Quantity Comments Source Gender identity Daylin Vernon - External Sexual orientation Prashanth doni Vernon - External History of tobacco use Cigarette Smoker Dayanara yanez - External Alcohol intake 2023-07-11 00:00:00 2023-07-11 00:00:00 Ex-drinker (finding) Dayanara Vernon - External History of Social function 2023-05-08 00:00:00 2023-05-08 00:00:00 Dayanara Vernon - External Cigarettes smoked current (pack per day) - Reported 2023-01-16 00:00:00 2023-01-16 00:00:00 Dayanara Vernon - External Cigarette pack-years 2023-01-16 00:00:00 2023-01-16 00:00:00 Dayanara Vernon - External Tobacco use and exposure 2023-01-16 00:00:00 2023-01-16 00:00:00 Smokeless tobacco non-user Dayanara Vernon - External Sex Assigned At 1970 00:00:00 1970 00:00:00 Dayanara Vernon - External Smoking Status Start Date Stop Date Source Smokes tobacco daily 2023-01-16 00:00:00 Dayanara Vernon - External Medications Ordered Medication Name Filled Medication Name Start Date Stop Date Current Medication? Ordering Clinician Indication Dosage Frequency Signature (SIG) Comments Components Source Tizanidine HCl 4 MG oral Tablet 2022-09 07:10: 54 07-12 00:00 :00 No 4mg Q.36977394 [id number] 3D Take 1 tablet (4 mg total) by mouth every 8 hours as needed for muscle spasms. Dayanara Vernon - Externa l methylPREDN ISolone 4 MG oral Tablet Therapy Pack 2022-09 0 00:00: 00 Yes Dayanara Vernon - Externa l Cyclobenzap rine HCl 10 MG oral Tablet 2022-09 0 00:00: 00 Yes Dayanara Saulo - Externa l Acetaminoph en-Codeine 300-30 MG oral Tablet 2022-09 0 00:00: 00 Yes [id number] 1{tbl} Q.48549644 [id number] 3D Take 1 tablet by mouth every 8 hours as needed for pain. Dayanara Vernon - Externa l Tizanidine HCl 4 MG oral Tablet 05-08 08:59: 54 Yes 4mg Q.37781384 [id number] 3D Take 1 tablet (4 mg total) by mouth every 8 hours as needed for muscle spasms Dayanara Vernon - Externa l Etodolac 400 MG oral Tablet 05-07 00:00: 00 Yes [id number] 400mg Take 1 tablet (400 mg total) by mouth 2 times daily - with food as needed Dayanara Vernon - Externa l Acetaminoph en-Codeine 300-30 MG oral Tablet 05-07 00:00: 00 Yes [id number] 1{tbl} Q.79868375 [id number] 3D Take 1 tablet by mouth every 8 hours as needed for pain Dayanara Vernon - Externa l Tizanidine HCl 4 MG oral Tablet 04 13:54: 56 Yes 4mg Q.71029751 [id number] 3D Take 1 tablet (4 mg total) by mouth every 8 hours as needed for muscle spasms Dayanara Vernon - Externa l Gabapentin 300 MG oral Capsule 01-29 00:00: 00 Yes [id number] 300mg Take 1 capsule (300 mg total) by mouth 3 times daily Dayanara Vernon - Externa l Tizanidine HCl 4 MG oral Tablet 19 14:14: 31 Yes 4mg Q.03738074 [id number] 3D Take 1 tablet (4 mg total) by mouth every 8 hours as needed for muscle spasms Dayanara Peñacarmela - Externa l Etodolac 400 MG oral Tablet 01-16 00:00: 00 Yes [id number] 400mg Take 1 tablet (400 mg total) by mouth 2 times daily - with food as needed Dayanara Saulo - Externa l Acetaminoph en-Codeine 300-30 MG oral Tablet 01-16 00:00: 00 Yes [id number] 1{tbl} Q.19596808 [id number] 3D Take 1 tablet by mouth every 8 hours as needed for pain Dayanara Peñacarmela - Externa l Vital Signs Vital Name Observation Time Observation Value Comments S ource Body height 2023-05-08 13:59:00 188 cm Daylin ey Seybold - External Body weight 2023-05-08 13:59:00 145.786 kg Daylin ey Seybold - External BMI 2023-05-08 13:59:00 41.27 kg/m2 Daylin ey Seybold - External Respiratory rate 2023-01-31 18:53:00 17 /min Dayanara Seybold - External Body height 2023-01-31 18:53:00 188 cm Daylin ey Seybold - External Body weight 2023-01-31 18:53:00 145.151 kg Daylin ey Seybold - External BMI 2023-01-31 18:53:00 41.09 kg/m2 Daylin ey Seybold - External Systolic blood pressure 2023-01-16 18:38:00 128 mm[Hg] Dayanara Peñaybo ld - External Diastolic blood pressure 2023-01-16 18:38:00 84 mm[Hg] Dayanara Peñaybo ld - External Heart rate 2023-01-16 18:38:00 80 /min Kelse y Seybold - External Body temperature 2023-01-16 18:38:00 36.39 Opal Dayanara Seybold - External Respiratory rate 2023-01-16 18:38:00 18 /min Dayanara Seybold - External Body height 2023-01-16 18:38:00 188 cm Daylin ey Seybold - External Body weight 2023-01-16 18:38:00 150.776 kg Daylin jerson Seybold - External BMI 2023-01-16 18:38:00 42.68 kg/m2 Daylin ey Seybold - External Procedures Procedure Date / Time Performed Performing Clinicia n Source CERVICAL SPINE - 2 VIEW 2023-05-08 16:06:34 Jozef Multani Secarmela - External Encounters Start Date/Time End Date/Time Encounter Type Admission Type Attending [facility] Care Department Encounter ID Source 2024-04-14 00:35:00 2024-04-14 02:00:00 Emergency EM Tobi Noguera [facility] [id number] [facility] 2024-03-16 13:30:00 2024-03-16 13:30:00 Outpatient JOZEF MULTANI [id number] Day[facility] 2024-02-25 00:00:00 2024-02-25 00:00:00 Outpatient LUIS ALFREDO AYALA [id number] Day[facility]ara [facility] 2024-01-02 00:00:00 2024-01-02 00:00:00 Outpatient LUIS ALFREDO AYALA [id number] Dayanara [facility] 2023-11-11 00:00:00 2023-11-11 00:00:00 Outpatient LUIS ALFREDO AYALA [id number] Dayanara [facility] 2023-10-20 00:00:00 2023-10-20 00:00:00 Outpatient LUIS ALFREDO AYALA [id number] Dayanara [facility] 2023-10-02 15:30:00 2023-10-02 15:30:00 Outpatient [facility]ARA GREENBERG [id number] [facility] 00:00:00 2023-09-24 00:00:00 Outpatient LUIS ALFREDO AYALA [id number] [facility] 2023-09-18 10:45:00 2023-09-18 10:45:00 Outpatient DAYANARA GREENBERG [id number] [facility] 2023-08-26 00:00:00 2023-08-26 00:00:00 Outpatient LUIS ALFREDO AYALA [id number] Dayanara [facility] 2023-08-26 00:00:00 2023-08-26 00:00:00 Outpatient LUCY, LUIS ALFREDO GREENBERG [id number] [facility] 2023-08-21 00:00:00 2023-08-21 00:00:00 Outpatient LUCY, LUIS ALFREDO GREENBERG [id number] [facility] 2023-08-19 00:00:00 2023-08-19 00:00:00 Outpatient LUCY, LUIS ALFREDO GREENBERG [id number] [facility] 2023-08-12 00:00:00 2023-08-12 00:00:00 Outpatient [facility] [id number] [facility]-08 00:00:00 2023-08-08 00:00:00 Outpatient [facility]F [facility]ULTANI [id number] [facility] 2023-08-08 00:00:00 2023-08-08 00:00:00 Outpatient LUCY, LUIS ALFREDO [facility]BERG [id number] [facility] 16:00:00 2023-07-31 16:00:00 Out[facility]ULT[facility] [id number] [facility] 2023-07-29 00:00:00 2023-07-29 00:00:00 Outpatient JOZEF MULTANI [id number] [facility] 2023-07-29 00:00:00 2023-07-29 00:00:00 Outpatient DAYANARA GREENBERG [id number] [facility] 2023-07-27 00:00:00 2023-07-27 00:00:00 Outpatient LUCY, LUIS ALFREDO GREENBERG [id number] [facility] 2023-07-26 00:00:00 2023-07-26 00:00:00 Outpatient JOZEF MULTANI [id number] Dayanara Seybold 2023-07-26 00:00:00 2023-07-26 00:00:00 Outpatient LUCY, LUIS ALFREDO GREENBERG [id number] Dayanara Seybold 2023-07-16 00:00:00 2023-07-16 00:00:00 Outpatient NAZIAGLORIA DAYANARA GREENBERG [id number] [facility] 2023-07-11 15:45:00 2023-07-11 15:45:00 Outpatient MYRONJOZEF CHRISTIE DAYANARA GREENBERG [id number] [facility] 2023-07-07 00:00:00 2023-07-07 00:00:00 Outpatient LUCYLANAEyal GREENBERG [id number] [facility] 2023-06-19 10:45:00 2023-06-19 10:45:00 Outpatient NEGRA JOZEF GREENBERG [id number] [facility] 2023-05-23 00:00:00 2023-05-23 00:00:00 Outpatient LUCYLANA CELESTEEyal GREENBERG [id number] [facility] 2023-05-08 10:40:00 2023-05-08 10:40:00 Outpatient DAYANARA GREENBERG [id number] [facility] 2023-05-08 09:00:00 2023-05-08 09:00:00 Outpatient NEGRA JOZEF GREENBERG [id number] [facility] 2023-05-06 00:00:00 2023-05-06 00:00:00 Outpatient LUCYLANA CELESTEEyal GREENBERG [id number] [facility] 2023-04-06 00:30:00 2023-04-06 04:50:00 Emergency EM Jovanny Wilkinson [facility] [id number] [facility] 2023-04-04 14:00:00 2023-04-04 14:00:00 Outpatient ANGELA AYALA [id number] [facility] 2023-03-26 00:00:00 2023-03-26 00:00:00 Outpatient ANGELA AYALA [id number] [facility] 2023-03-20 00:00:00 2023-03-20 00:00:00 Outpatient LUIS ALFREDO AYALA [id number] [facility] 2023-03-20 00:00:00 2023-03-20 00:00:00 Outpatient ANSOALILA ANGELA GREENBERG [id number] [facility] 2023-03-18 00:00:00 2023-03-18 00:00:00 Outpatient ANSAUGIE ANGELA DAYANARA GREENBERG [id number] [facility] 2023-03-14 00:00:00 2023-03-14 00:00:00 Outpatient LUCY, LUIS ALFREDO GREENBERG [id number] [facility] 2023-03-13 00:00:00 2023-03-13 00:00:00 Outpatient MD DAYANARA TOVAR [id number] [facility] 2023-03-13 00:00:00 2023-03-13 00:00:00 Outpatient LUCY, LUIS ALFREDO GREENBERG [id number] [facility] 2023-03-11 00:00:00 2023-03-11 00:00:00 Outpatient ANGELA AYALA [id number] [facility] 2023-03-08 08:45:00 2023-03-08 08:45:00 Outpatient JOZEF MULTANI [id number] [facility] 2023-03-07 15:15:00 2023-03-07 15:15:00 Outpatient JOZEF MULTANI [id number] [facility] 2023-03-07 00:00:00 2023-03-07 00:00:00 Outpatient JOZEF MULTANI [id number] [facility] 2023-03-06 00:00:00 2023-03-06 00:00:00 Outpatient LUCYLUIS ALFREDO [id number] Dayanara Seybold 2023-03-05 00:00:00 2023-03-05 00:00:00 Outpatient LUCYLUIS ALFREDO CELESTE [id number] [facility] 2023-03-05 00:00:00 2023-03-05 00:00:00 Outpatient LUCYLUIS ALFREDO [id number] [facility] 2023-03-01 00:00:00 2023-03-01 00:00:00 Outpatient LUCYLUIS ALFREDO CELESTE DAYANARA GREENBERG [id number] Dayanara ybbeau 2023-02-26 00:00:00 2023-02-26 00:00:00 Outpatient PROVIDER, PERRY GREENBERG [id number] Dayanara Sey[facility] 2023-02-26 00:00:00 2023-02-26 00:00:00 Outpatient GRAHAMLONDON DAYANARA GREENBERG [id number] Dayanara Sey[facility] 2023-02-25 20:48:00 2023-02-25 21:42:00 Emergency E SHARON, ISMAIL MHBL MHBL [id number] [facility] 2023-02-24 00:00:00 2023-02-24 00:00:00 Outpatient LUCYLANAEyal GREENBERG [id number] Dayanara ybbeau 2023-02-11 00:00:00 2023-02-11 00:00:00 Outpatient ANSANGELA GHOSH [id number] [facility] 2023-02-11 00:00:00 2023-02-11 00:00:00 Outpatient ANSANGELA GHOSH [id number] Dayanara [place] 2023-02-11 00:00:00 2023-02-11 00:00:00 Outpatient LUCYLUIS ALFREDO DAYANARA GREENBERG [id number] Dayanara Sey[facility] 2023-02-07 13:05:00 2023-02-07 13:05:00 Outpatient LAB DAYANARA GREENBERG [id number] Dayanara Sey[facility] 2023-02-05 09:30:00 2023-02-05 09:30:00 Outpatient DAYANARA GREENBERG [id number] Dayanara Vernon 2023-02-05 09:25:00 2023-02-05 09:25:00 Outpatient DAYANARA GREENBERG [id number] Dayanara Vernon 2023-01-31 14:10:00 2023-01-31 14:10:00 Outpatient DAYANARA GREENBERG [id number] Dayanara Vernon 2023-01-31 14:00:00 2023-01-31 14:00:00 Outpatient ANSANGELA GHOSH [id number] Dayanara Vernon 2023-01-30 00:00:00 2023-01-30 00:00:00 Outpatient MD DAYANARA TOVAR [id number] Dayanara Vernon 2023-01-29 00:00:00 2023-01-29 00:00:00 Outpatient LUCYLUIS ALFREDO CELESTE DAYANARA [id number] Dayanara Vernon 2023-01-24 00:00:00 2023-01-24 00:00:00 Outpatient LUCYLUIS ALFREDO CELESTESEY [id number] Dayanara Vernon 2023-01-22 00:00:00 2023-01-22 00:00:00 Outpatient LUCYLUIS ALFREDO CELESTEDEJUAN GREENBERG [id number] Dayanara Vernon 2023-01-18 00:00:00 2023-01-18 00:00:00 Outpatient LUCYLUIS ALFREDO CELESTE DAYANARA [id number] Dayanara Vernon 2023-01-16 13:40:00 2023-01-16 13:40:00 Outpatient LUCYLUIS ALFREDO CELESTE [id number] [facility] Results Test Description Test Time Test Comments Results Result Co mments Source TROP-I HIGH [id number] 03:54:00* Test Item Value Reference Range Interpretation Comme nts TROP-I HIGH SENSITIVITY (test code = TROPIHS) 4.0 ng/L 0-78 N CAUTION: Units o f the current test methodology (ng/L) differfrom the prior test methodology (ng/mL) by a factor of 1000. 99th Percentile Upper Reference Limit (URL):Females: 54 ng/LMales: 79 ng/L In order to distinguish acute elevations of high sensitivitytroponin from other clinical conditions, the FourthUniversal Definition of Myocardial Infarction stressesclinical assessment and the demonstration of a rise and/orfall in serial troponin results above the URL. Results from different methodologies should not be comparedto one another as quantitative results and URLs may varyby method. - CTA [id number] 03:47:00 [facility] : 1970 Sex: M Name: ANGELA JEREZ [facility] : 1970 Age/S: 53 / M [id number] Unit #: [id number]: [place] [address] Phys: Jovanny Wilkinson MD Acct: [id number] Dis Date: Status: REG ER PHONE #: [phone] Exam Date: 04/06/2023 0301 FAX #: Reason: chest pain, radiation to back, R/O dissection EXAMS: CPT: [id number] CTA CHEST 61938 EXAM: - CTA CHEST LOCATION: H57 HISTORY: 53 years-year oldMale with chest pain, radiation to back, R/O [...] PARENCHYMA AND PLEURA: There are no lung nodules.There is no interstitial lung disease. There are no pleural effusions or pneumothorax. AIRWAY: The central airway is normal. MEDIASTINUM: There is no mediastinal lymphadenopathy. HEART: The cardiac chambers appear unremarkable. There is no pericardial effusion. OSSEOUS STRUCTURES: There are no definite significant osseous abnormalities seen. CTA ABDOMEN/PELVIS: PAGE 1 Signed Report (CONTINUED) Name: ANGELA JEREZ : 1970 Age/S: 53 / M [id number] Unit #: [id number] Loc: [place] [address] Phys: Jovanny Wilkinson MD Acct: [id number] Dis Date: Status: REG ER PHONE#: [phone] Exam Date: 04/06/2023 0301 FAX #: Reason: chest pain, radiation to back, R/O dissec tion EXAMS: CPT: [id number] CTA CHEST 93783 (Continued) ARTERIAL EVALUATION: The abdominal aorta isnormal in caliber. The celiac artery, superior mesenteric artery and inferior mesenteric artery origins are widely patent. Bilateral renal arteries are patent. There is no CT evidence of renal arterystenosis. Bilateral common iliac, internal iliac, and external iliac arteries appear unremarkable. ABDOMINAL SOLID ORGANS: The arterial phase contrast-enhanced images of the liver, spleen, pancreas,adrenals and kidneys are unremarkable. The gallbladder is surgically absent. PERITONEUM AND RETROPERITONEUM: There is no lymphadenopathy. There is no ascites. STOMACH AND BOWEL: The noncontrast opaci fied stomach and loops of bowel are unremarkable. The lack of orally administered contrast materiallimits assessment. The appendix is surgically absent. PELVIS: The urinary bladder has a normal appearance given its degree of distention. OSSEOUS STRUCTURES: There are no definite significant osseous abnormalities seen. Posterior hardware fusion of L4-S1. IMPRESSION: 1. No aortic aneurysm or dissection. at 0347 Reported and signed by: Bob Suarez M.D. CC: Jovanny Wilkinson MD Technologist:Winifred Marquis CTDI: DLP: Trnscb Date/Time: 04/06/2023 (346) [email or web address] Orig Print D/T: S: 04/06/2023 (035) PAGE 2 Signed Report- CTA ABD PEL W [id number] 03:37:00 [facility] : 1970 Sex: M Name: ANGELA JEREZ [facility] : 1970 Age/S: 53 / M [address] Unit #: [id number] Loc: [place] [address] Phys: Jovanny Wilkinson MD Acct: [id number] Dis Date: Status: REG ER PHONE #:[phone] Exam Date: 04/06/2023 0301 FAX #: Reason: chest pain, radiation to back, R/O dissection EXAMS: CPT: [id number] CTA ABD PEL W CONT 39846 EXAM: - CTA ABD PEL W CONT LOCATION: H57 HISTORY: 53 years-year old Male with chest pain, radiation to back, R/O dissection TECHNIQUE: CT angiographyof the chest, abdomen, and pelvis was performed [...] noted. The peripheral pulmonary arteries are not wellassessed on this exam. The superior vena cava is unremarkable. LUNG PARENCHYMA AND PLEURA: There are no lung nodules. There is no interstitial lung disease. There are no pleural effusions or pneumothorax. AIRWAY: The central airway is normal. MEDIASTINUM: There is no mediastinal lymphadenopathy. HEART: The cardiac chambers appear unremarkable. There is no pericardial effusion. OSSEOUS STRUCTURES:There are no definite significant osseous abnormalities seen. CTA ABDOMEN/PELVIS: PAGE 1 Signed Report (CONTINUED) Name: ANGELA JEREZ : 1970 Age/S: 53 / M [id number] Unit #: [id number] Loc: [place] [address] Phys: Jovanny Wilkinson MD Acct: [id number] Dis Date: Status: REG ER PHONE #: [phone] Exam Date: 04/06/2023 0301 FAX #: Reason: chest pain, radiation to back, R/O dissection EXAMS: CPT: [id number] CTA ABD PEL W CONT 60979 (Continued) ARTERIAL EVALUATION: The abdominal aorta is [...] lymphadenopathy. There is no ascites. STOMACH AND BOWEL:The noncontrast opacified stomach and loops of bowel are unremarkable. The lack of orally administered contrast material limits assessment. The appendix is surgically absent. PELVIS: The urinary bladder has a normal appearance given its degree of distention. OSSEOUS STRUCTURES: There are no definite significant osseous abnormalities seen. Posterior hardware fusion of L4-S1. IMPRESSION: 1. No aortic aneurysm or dissection. at 0337 Reported and signed by: Bob Suaerz M.D. CC: Jovanny Wilkinson MD Technologist:Winifred Marquis CTDI: DLP: Trnscb Date/Time: 04/06/2023 (336) [email or web address] Orig Print D/T: S: 04/06/2023 (339) PAGE 2 Signed ReportNT PRO-BRAIN NATRIURETIC [id number] 02:22:00* Test Item Value Reference Range Interpretation Comme nts NT PRO-BRAIN NATRIURETIC PEP TI (test code = PROBNP) < 5 PG/ML 0-100 N TROP-I HIGH [id number] 01:25:00* Test Item Value Reference Range Interpretation Comme nts TROP-I HIGH SENSITIVITY (test code = TROPIHS) 3.0 ng/L 0-78 N CAUTION: Units o f the current test methodology (ng/L) differfrom the prior test methodology (ng/mL) by a factor of 1000. 99th Percentile Upper Reference Limit (URL):Females: 54 ng/LMales: 79 ng/L In order to distinguish acute elevations of high sensitivitytroponin from other clinical conditions, the FourthUniversal Definition of Myocardial Infarction stressesclinical assessment and the demonstration of a rise and/orfall in serial troponin results above the URL. Results from different methodologies should not be comparedto one another as quantitative results and URLs may varyby method. BASIC METABOLIC [id number] 01:25:00* Test Item Value Reference Range Interpretation Comme nts SODIUM (test code = NA) 137 mmol/L 134-147 N POTASSIUM (test code = K) 4.5 mmol/L 3.4-5.0 N CHLORIDE (test code = CL) 107 mmol/L 100-108 N CARBON DIOXIDE (test code = CO2) 26 mmol/L 21-32 N ANION GAP (test code = GAP) 4.0 GAP calc 4.0-15.0 N GLUCOSE (test code = GLU) 95 MG/DL 70-110 N BLOOD UREA NITROGEN (test code = BUN) 15 MG/DL 7-18 N GLOMERULAR FILTRATION RATE (test code = GFR) >=60 max estimate estGFR >60 The Glomerular Filtration Rate is a calculated parameterbased on serum Creatinine, patient age and sex. GFR valuesless than 60 mL/min/1.73 square meters are indicative ofChronic Kidney Disease. Values less than 15 mL/min/1.73square meters indicate Kidney failure. The calculation forGFR is based on the CKD-EPI (2020) calculation. This formulais race indifferent and is the recommended formula for GFRby the National Kidney Foundation for Adults.The GFR will not calculate if the sex is unknown or if thepatient's age is <18 years. CREATININE (test code = CREAT) 1.0 MG/DL 0.8-1.3 N CALCIUM (test code = CA) 9.2 MG/DL 8.5-10.1 N HEPATIC FUNCTION [id number] 01:25:00* Test Item Value Reference Range Interpretation Comme nts TOTAL PROTEIN (test code = PROT) 7.7 G/DL 6.4-8.2 N ALBUMIN (test code = ALB) 3.6 G/DL 3.4-5.0 N BILIRUBIN TOTAL (test code = BILT) 0.30 MG/DL 0.2-1.2 N BILIRUBIN DIRECT (test code = BILD) < 0.10 MG/DL 0.00-0.30 N BILIRUBIN INDIRECT (test cod e = BILIND) 0.20 MG/DL 0.2-1.2 N SGOT/AST (test code = AST) 19 Unit/L 15-37 N SGPT/ALT (test code = ALT) 32 Unit/L 12-78 N ALKALINE PHOSPHATASE TOTAL ( test code = ALKP) 117 Unit/L 50-136 N [id number] 01:25:00* Test Item Value Reference Range Interpretation Comme nts LIPASE (test code = LIP) 132 Unit/L 114-286 N - XR CHEST 1 [id number] 01:21:00 [facility] : 1970 Sex: M Name: ANGELA JEREZ [facility] : 1970 Age/S: 53 / M [address] Unit #: [id number]: [place] [address] Phys: Jovanny Wilkinson MD Acct: [id number] Dis Date: Status: REG ER PHONE #: [phone] Exam Date: 04/06/2023 0120 FAX #: Reason: chest pain EXAMS: CPT: [id number] XR CHEST 1 V 32575 Fluoro Time: DAP (Gy m2): Air Kerma (mGy): Examination: One view chest x- ray Location code: H60 Comparison: None Discussion: Clinical history is remarkable for chest pain. Heart is normal in size. Lungs are clear of consolidating infiltrates. No masses, nodules or effusions are noted. Imp ression: 1. Normal one view chest x-ray. at 0121 Reported and signed by: Taran Saleem M.D. CC: Jovanny Wilkinson MD PAGE 1 Signed Report Name:ANGELA JEREZ : 1970 Age/S: 53 / M [address] Unit #: [id number] Loc: [place] [address] Phys: Jovanny Wilkinson MD Acct: [id number] Dis Date: Status: REG ER PHONE #: [phone] Exam Date: 04/06/2023 0120 FAX #: Reason: chest pain EXAMS: CPT: [id number] XR CHEST 1 V 54309 Fluoro Time: DAP (Gy m2): Air Kerma (mGy): (Continued) Technologist: Winifred Marquis Trnscb Date/Time: 04/06/2023 (0121) [email or web address] Orig Print D/T: S: 04/06/2023 (0125) PAGE 2 Signed ReportD-DIMER 2023-04-06 01:13:00* Test Item Value Reference Range Interpretation Comme nts D-DIMER (test code = DDIMER) 320 ng/mLFEU 215-500 N THROMBOSIS AND/O R PULMONARY EMBOLISM AND THE CLINICAL CUT-OFF VALUE FOR EXCLUSION (500 ng/mL FEU) OF THESE CONDITIONSIS VALIDATED BY THE LABORER DEMOLITION OF THE METHOD. A NEGATIVE D-DIMER RESULT WHEN COMBINED WITH A CLINICALASSESSMENT OF LOW PRETEST PROBABILITY HAS BEEN SHOWN TO HAVEA HIGH NEGATIVE PREDICTIVE VALUE OF DVT OR PE. D-DIMER VALUES >500 ng/mL FEU ARE NOT DIAGNOSTIC FOR DVT, PEor DIC WITHOUT OTHER CONFIRMATORY TESTS AND APPROPRIATECLINICAL EUALUATIONS. CBC W/O [id number] 00:57:00* Test Item Value Reference Range Interpretation Comme nts WHITE BLOOD CELL (test code = WBC) [...] pg 28.9-34.4 N MEAN CELL HGB CONCETRATION ( test code = MCHC) 34.9 G/DL 32.1-34.5 H RED CELL DISTRIBUTION WIDTH (test code = RDW) 13.4 SD 11.5-14.5 N PLATELET COUNT (test code = PLT) 240 K/mm3 150-450 N MEAN PLATELET VOLUME (test c ode = MPV) 10.70 fL 7.0-9.6 H Notes Date/Time Note Provider Source 2024-04-14 01:00:00 [facility] ([facility]) EMERGENCY PROVIDER REPORT REPORT#:[id number] REPORT STATUS: Signed DATE:04/14/24 TIME:0100 PATIENT: ANGELA JEREZ UNIT #: [id number] ROOM/BED: : 72 AGE: 54 SEX: M PCP PHYS: Undefined Provider SERVICE AUTHOR: Tobi Noguera MD * ALL edits or amendments must be made on the electronic/computer document * HPI-General Illness Free Text HPI Notes Free Text HPI Notes 54-year-old male with history of previous left-sided pneumothorax, presents valuation of left-sided chest pain, with shortness of breath, more so exertional in nature. No leg pain or swelling. No fever or chills, nausea or vomiting. General Initial Greet Date/Time 04/14/24 0038 Presentation Chief Complaint __ (chest pain) Review of Systems ROS Statements Complete sys rev neg except as marked. Review of Systems Cardiovascular Reports: Chest pain. Past Medical History - Adult Stated Complaint CHEST PAIN/SOB Allergies Coded Allergies: No Known Allergies (04/14/24) Review of Nursing Notes Triage notes reviewed Pt reports no significant: Past medical history, Social history Additional Surgical History PTX Physical Exam Vital Signs Vital Signs First Documented: Result Date Time Pulse Ox 96 04/14 0035 B/P 116/87 / 0035 B/P Mean 96 04/14 0035 O2 Delivery Room air 04/14 003 Temp 97.6 04/14 003 Pulse 85 04/14 0035 Resp 16 04/14 0035 Last Documented: Result Date Time Pulse Ox 96 04/14 0035 B/P 116/87 04/14 0035 B/P Mean 96 04/14 003 O2 Delivery Room air 04/14 003 Temp 97.6 04/14 0035 Pulse 85 / 0035 Resp 16 04/14 0035 Review of Vital Signs Reviewed Basic Physical Exam Basic PE HEAD: Atraumatic/NC, EYES: PERRL, conj clear, ENT: Membranes moist, NECK: Supple, RESP: No resp distress, CV: Reg rate rhythm, ABD: Soft/non- tender, EXT: No gross abnormality, SKIN: No rashes, warm/dry, NEURO: alert oriented, NEURO: gross movement NL, PSYCH: NL thought content Interpretation Diagnostics Lab Results Interpretation Results Laboratory Tests 04/14/24 0059: [Embedded Image Not Available] Laboratory Tests: 04/14 04/14 0059 0058 Chemistry Sodium (136 - 145 mmol/L) 138 Potassium (3.4 - 5.0 mmol/L) 4.1 Chloride (98 - 107 mmol/L) 100 Carbon Dioxide (21 - 32 mmol/L) 25 Anion Gap (4 - 15 GAP calc) 13 BUN (7 - 18 MG/DL) 10 Creatinine (0.6 - 1.0 MG/DL) 0.9 Glomerular Filtr Rate (>60 estGFR) >=60 max estimate Glucose (70 - 110 MG/DL) 83 POC Glucose (70 - 110 mg/dL) 90 Calcium (8.5 - 10.1 MG/DL) 10.0 Total Creatine Kinase (21 - 215 Unit/L) 76 Troponin I High Sens (0 - 78 ng/L) 7.5 NT-Pro-B Natriuret Pep (0 - 100 PG/ML) 22 Coagulation D-Dimer (215 - 500 ng/mLFEU) 477 Hematology WBC (3.5 - 11.0 K/mm3) 8.7 RBC (4.70 - 6.10 M/mm3) 5.79 Hgb (12.3 - 15.9 G/DL) 17.3 H Hct (35.8 - 46.7 %) 49.6 H MCV (86.3 - 98.9 Fl) 85.7 L MCH (28.9 - 34.4 pg) 29.9 MCHC (32.1 - 34.5 G/DL) 34.9 H RDW (11.5 - 14.5 SD) 13.2 Plt Count (150 - 450 K/mm3) 268 MPV (7.0 - 9.6 fL) 10.40 H Serology SARS-CoV-2 Ag (Rapid) (Negative) NEGATIVE Lab Imaging Statement Laboratory radiographic studies reviewed and considered in the medical decision-making. ECG #1 Interpretation Text/Dict Note Normal rate, rhythm, axis. No QRS widening. No DANIEL or STD. EKG reviewed and interpreted by me. Re-Evaluation MDM Free Text MDM Notes Free Text MDM Notes 54-year-old male present for evaluation of chest pain. Subsequently eloped. ED Course Medication(s) Ordered Medication(s) Ordered: Central Nervous System Agents Sig/Katerine Start time Last Medication Dose Route Stop Time Status Admin Aspirin 324 MG X1ED STA 04/14 0038 DC 04/14 PO 04/14 0039 0104 Patient Discharge Departure Vital Signs/Condition Vital Signs First Documented: Result Date Time Pulse Ox 96 04/14 0035 B/P 116/87 04/14 0035 B/P Mean 96 04/14 0035 O2 Delivery Room air 04/14 0035 Temp 97.6 04/14 0035 Pulse 85 04/14 0035 Resp 16 04/14 0035 Last Documented: Result Date Time Pulse Ox 96 04/14 0035 B/P 116/87 04/14 0035 B/P Mean 96 04/14 0035 O2 Delivery Room air 04/14 0035 Temp 97.6 04/14 0035 Pulse 85 04/14 0035 Resp 16 04/14 0035 All vital signs available at the time of this entry have been reviewed. Clinical Impression Clinical Impression Primary Impression: Eloped from emergency department Secondary Impressions: Chest pain Disposition Decision Other )( Time 0220 )( Date 04/14/24 at 0510 RPT #: [id number] END OF REPORT [facility] 2023-05-08 09:03:03 Formatting of this n ote is different from the original. Angela Jerez is a 53 year old male Chief Complaint Patient presents with New Patient Consult C/O 9/10 chronic low back pain issues. Reprots pain radiates down bilateral lower extremites with numbness and tingling. Uses cane for safe ambulation. Shannan Luciano CMA II [facility] 2023-04-06 02:00:00 [facility] ([facility]) EMERGENCY PROVIDER REPORT REPORT#:[id number] REPORT STATUS: Signed DATE:04/06/23 TIME:0200 PATIENT: ANGELA JEREZ UNIT #: [id number] ROOM/BED: : 72 AGE: 53 SEX: M PCP PHYS: Undefined Provider SERVICE AUTHOR: Jovanny Wilkinson MD * ALL edits or amendments must be made on the electronic/computer document * HPI-Chest Pain 40 and Over General Confirmed Patient Yes Initial Greet Date/Time 04/06/23 0031 Presentation Chief Complaint Chest pain Hx Obtained From Patient Sudden in Onset? No )( Migration/Movement shoulder Free Text HPI Notes Free Text HPI Notes 53-year-old male, past medical history of tobacco use. Patient is here with 3 hours of right-sided chest pain and some pain around his right shoulder and shoulder blade. Pain is pleuritic, he also has some shortness of breath. No other cardiopulmonary symptoms, no GI or symptoms, no fever. He does report increased stressors recently Denies the following - Positional or exertional pain - Recent stimulant use - Classic risk factors for DVT/PE or hemoptysis (unless mentioned above) - Known CAD Risk-Chest Pain 40 and Over Risk Stratification )( Coronary Artery Disease Risk factors reviewed )( Thoracic Aortic Dissection Risk factors reviewed )( Pulmonary Embolism Risk factors reviewed )( AMI-Aspirin Aspirin Last 24 Hrs 324 mg, On arrival )( HEART for MACE )( HEART for MACE Response Value History Low index of suspicion 0 ECG Interpretation Normal ECG 0 Age Age 45 - 65 1 Risk Factors for CAD 1-2 CAD risk factors 1 Troponin < or = to NL troponin 0 Total 2 Past Medical History - Adult Stated Complaint CHEST PAIN, R SIDE, SOB, PAIN 3 HOURS Allergies Coded Allergies: No Known Allergies (04/06/23) Calculated Suicide Risk (nurs) No risk Review of Nursing Notes Rev avail, and agree Smoking status for patients 13 years old or older: Current every day smoker Physical Exam Vital Signs Vital Signs First Documented: Result Date Time Pulse Ox 97 / 0038 B/P 144/88 / 0038 B/P Mean 106 / 0038 O2 Delivery Room air / 0038 Temp 36.9 07/08 0038 Pulse 75 07/08 0038 Resp 18 / 0038 Last Documented: Result Date Time Pulse Ox 97 / 0038 B/P 144/88 / 0038 B/P Mean 106 / 0038 O2 Delivery Room air / 0038 Temp 36.9 07/08 0038 Pulse 75 07/08 0038 Resp 18 / 0038 Review of Vital Signs Reviewed Free Text PE Notes Free Text PE Notes Chest pain reproducible with palpation: yes, exquisitely so Cardiac: Normal S1, S2, 2+ pulses in all 4 extremities No evidence of acute DVT General: awake and alert, not toxic appearing, no acute distress but appears anxious and uncomfortable Pulmonary: no respiratory distress, CTAB, no stridor Abdomen: soft, NTND, no peritoneal findings Neuro: no gross acute focal abnormalities Extremities: no acute deformities, appropriate ROM Skin: no acute appearing rashes, well perfused Interpretation Diagnostics Lab Results Interpretation Results Laboratory Tests 04/06/23 0047: [Embedded Image Not Available] Laboratory Tests: 04/06 04/06 04/06 0328 0047 0047 Chemistry Sodium (134 - 147 mmol/L) 137 Potassium (3.4 - 5.0 mmol/L) 4.5 Chloride (100 - 108 mmol/L) 107 Carbon Dioxide (21 - 32 mmol/L) 26 Anion Gap (4.0 - 15.0 GAP calc) 4.0 BUN (7 - 18 MG/DL) 15 Creatinine (0.8 - 1.3 MG/DL) 1.0 Glomerular Filtr Rate (>60 estGFR) >=60 max estimate Glucose (70 - 110 MG/DL) 95 Calcium (8.5 - 10.1 MG/DL) 9.2 Total Bilirubin (0.2 - 1.2 MG/DL) 0.30 Direct Bilirubin (0.00 - 0.30 MG/DL) < 0.10 Indirect Bilirubin (0.2 - 1.2 MG/DL) 0.20 AST (15 - 37 Unit/L) 19 ALT (12 - 78 Unit/L) 32 Total Alk Phosphatase (50 - 136 Unit/L) 117 Troponin I High Sens (0 - 78 ng/L) 4.0 3.0 NT-Pro-B Natriuret Pep (0 - 100 PG/ML) < 5 Total Protein (6.4 - 8.2 G/DL) 7.7 Albumin (3.4 - 5.0 G/DL) 3.6 Lipase (114 - 286 Unit/L) 132 Coagulation D-Dimer (215 - 500 ng/mLFEU) 320 Hematology WBC (3.5 - 11.0 K/mm3) 8.6 RBC (4.70 - 6.10 M/mm3) 5.67 Hgb (12.3 - 15.9 G/DL) 16.6 H Hct (35.8 - 46.7 %) 47.6 H MCV (86.3 - 98.9 Fl) 84.0 L MCH (28.9 - 34.4 pg) 29.3 MCHC (32.1 - 34.5 G/DL) 34.9 H RDW (11.5 - 14.5 SD) 13.4 Plt Count (150 - 450 K/mm3) 240 MPV (7.0 - 9.6 fL) 10.70 H Recent Impressions: RADIOLOGY - XR CHEST 1 V 04/06 012 Report Impression - Status: SIGNED Entered: 04/06/2023 0125 Impression: 1. Normal one view chest x-ray. Impression By: AlistairVRLamin - Taran Saleem M.D. CAT SCAN - CTA ABD PEL W CONT 04/06 0301 Report Impression - Status: SIGNED Entered: 04/06/2023 0340 IMPRESSION: 1. No aortic aneurysm or dissection. Impression By: t.[email or web address] Suarez M.D. CAT SCAN - CTA CHEST 04/06 0301 Report Impression - Status: SIGNED Entered: 04/06/2023 0350 IMPRESSION: 1. No aortic aneurysm or dissection. Impression By: Keli Suarez M.D. ECG #1 Interpretation Text/Dict Note EKG independently reviewed and interpreted by me and performed on April 06, 2023 , at 12:41 AM. Normal sinus rhythm at a rate of 73, no STEMI, adequate tracing, normal intervals. Repeat ECG Repeat ECG unchanged Re-Evaluation MDM Re-Evaluation/Progress #1 Time of Re-Eval 0431 Re-Eval Status Improved ED Course Medication(s) Ordered Medication(s) Ordered: Central Nervous System Agents Sig/Katerine Start time Last Medication Dose Route Stop Time Status Admin Morphine Sulfate 4 MG X1ED STA 04/06 0331 DC 07/ IV / 0332 0402 Hydroxyzine HCl 25 MG X1ED STA 04/06 0203 DC 07/ PO / 0204 0215 Aspirin 324 MG X1ED STA / 0201 DC 07/08 PO 07/ 0202 0214 Morphine Sulfate 4 MG X1ED STA / 0042 DC 07/08 IV 07/08 0043 0102 Diagnostic Agents Sig/Katerine Start time Last Medication Dose Route Stop Time Status Admin Iopamidol 0 .STK-MED ONE 04/06 0257 DC .ROUTE Electrolytic, Caloric, And Baldomero Sig/Katerine Start time Last Medication Dose Route Stop Time Status Admin Sodium Chloride 100 ML .STK-MED ONE 04/06 0333 DC 07/08 IV / 0334 0333 Lactated Ringer's 1,000 ML X1ED STA / 0330 DC 07/08 IV 07/08 0429 0402 Sodium Chloride 1,000 ML X1ED STA / 0042 DC 07/08 IV 07/ 0142 0103 Differential Diagnosis )( Differential Diagnosis Acute myocardial infarct Free Text MDM Notes Free Text MDM Notes Differential diagnosis includes but is not limited to the following diagnoses - Acute coronary syndrome, coronary dissection - Aortic dissection, pulmonary embolus - Esophageal rupture, pneumothorax, cardiac tamponade - Costochondritis, GERD, anxiety, PNA, pericarditis - Shingles, soft tissue infection, chest wall trauma Patient here with clinical picture most consistent with atypical chest pain. Extensive negative work-up including -[address] angio done to rule out dissection. Status post IV fluids per the patient's request, and IV narcotic pain medication Imaging results independently reviewed and interpreted by me: none Discharged with prescriptions for symptomatic treatment Patient Discharge Departure Vital Signs/Condition Vital Signs First Documented: Result Date Time Pulse Ox 97 / 0038 B/P 144/88 / 0038 B/P Mean 106 / 0038 O2 Delivery Room air 04/06 0038 Temp 36.9 07/ 0038 Pulse 75 07/08 0038 Resp 18 04/06 0038 Last Documented: Result Date Time Pulse Ox 97 / 0038 B/P 144/88 / 0038 B/P Mean 106 / 0038 O2 Delivery Room air 04/06 0038 Temp 36.9 /08 0038 Pulse 75 / 0038 Resp 18 04/06 0038 All vital signs available at the time of this entry have been reviewed. Clinical Impression Clinical Impression Primary Impression: Chest pain Disposition Decision Discharge )( Discharged to Home Yes )( Time 0434 )( Date 04/06/23 Discharge/Care Plan Counseled Regarding Diagnosis, Lab results, Imaging studies, Need for follow-up, When to return to ED (Auto) Prescriptions Current Visit Scripts ACETAMINOPHEN (TYLENOL) 325 MG PO Q6H PRN PRN PAIN ACETAMINOPHEN (TYLENOL) 325 MG PO Q6H PRN PRN PAIN #60 TABS Take 1-2 Tablets KETOROLAC (TORADOL) 10 MG PO Q8H PRN PRN PAIN KETOROLAC (TORADOL) 10 MG PO Q8H PRN PRN PAIN #9 TABS hydrOXYzine HCL (ATARAX) 25 MG PO TID PRN PRN Anxiety hydrOXYzine HCL (ATARAX) 25 MG PO TID PRN PRN Anxiety #30 TABS Patient Instructions ED Chest Pain, Uncertain Cause Additional Instructions As we discussed, it is not clear what is causing your symptoms, but there is no evidence of a dangerous cause that requires further testing/treatment in the ER or hospital at this time. Please return for any concerns including new, worsening, or persistent symptoms and follow up with your doctor and the vice chancellor. Please show them the imaging and lab study results we discussed and printed for you. Please make an appointment to follow up with your doctor. If you do not have a doctor or want to find a new one, please follow the below instructions. Contact your insurance company (phone, website) to get a list of doctors who are in your insurance network. Otherwise, call the following numbers to arrange for outpatient follow up for your [place] [facility] - [place]: [facility] at [phone] - [facility]: [facility]: [phone] - [place]: [email or web address] - [place]: [phone] If you are having difficulty affording prescriptions you can get coupons on the website [email or web address] Referrals Provider Referral: Israel Champagne MD Address: [address] [place] [address] [place] [id number] at 0435 RPT #: [id number] END OF REPORT [facility] 2023-04-06 00:41:00 [id number] [facility] [address] [place] [address] PATIENT NAME: ANGELA JEREZ ADMIT DATE: 04/06/23 ACCOUNT NO: [id number] ROOM NO: AGE: 53 REPORT TYPE: eELECTROCARDIOGRAM SEX: M ADMITTING PHYSICIAN: ATTENDING PHYSICIAN: Order: [id number] Test Reason : CP Test Date/Time Stamp: [facility] Apr 06 2023 00:41:38 Blood Pressure : / mmHG Vent. Rate : 073 BPM Atrial Rate : 073 BPM P-R Int : 150 ms QRS Dur : 102 ms QT Int : 368 ms P-R-T Axes : 037 020 055 degrees QTc Int : 405 ms Normal sinus rhythm Cannot rule out Anterior infarct , age undetermined Abnormal ECG No previous ECGs available Confirmed by ISRAEL CHAMPAGNE ([id number]) on 04/22/2023 9:13:27 AM Referred By: Self Referred Confirmed by:ISRAEL CHAMPAGNE at 0913 PATIENT NAME: ANGELA JEREZ [facility]
[2024-06-16] MEDS ORDERED: PROMETHAZINE 25 MG TABLET ONE (06:53)
[2024-06-16] MEDS ORDERED: KETOROLAC 30 MG/ML INJ ONE (06:54)
[2024-06-16] MEDS ORDERED: methocarbamoL 750 MG TAB ONE (06:54)
[2024-06-16] MEDS ORDERED: FENTANYL CITR 100 MCG/2 ML ONE (06:54)
[2024-06-16 07:44] LABS: Sqamous Epithelial None Seen /HPF (None Seen); Urine Bacteria None Seen /HPF (<20); Urine Bilirubin NEGATIVE (Negative); Urine Blood Negative (Negative); Urine Clarity Clear (Clear); Urine Color Light-Yellow (Yellow); Urine Culture Reflex Order NOT NEEDED; Urine Glucose NEGATIVE (Negative); Urine Ketones NEGATIVE (Negative); Urine Micro Reflex YN NO BILL MICROSCOPIC; Urine Nitrite NEGATIVE (Negative); Urine Protein NEGATIVE (Negative); Urine RBC None Seen /HPF (None Seen); Urine Urobilinogen Normal (Normal); Urine WBC <5 /HPF (<5); Urine pH 6.5 (5.0-7.0)
--- NOTE | 2024-06-16 07:55 | RAD REPORT ---
EXAMINATION: CT LUMBAR SPINE WITHOUT CONTRAST CLINICAL INDICATION: Male, 54 years old. Fall, back pain TECHNIQUE: Axial CT images were obtained through the lumbar spine in soft tissue and bone windows wit hout intravenous contrast. Coronal and Sagittal reformatted images were created from the data set. One or more of the following dose reduction techniques were used: Automated exposure control, adjustm ent of the mA and/ or kV according to patient size, and/or iterative reconstruction. Unless otherwise specified, incidental findings do not require dedicated imaging follow-up. COMPARISON: 07/07/2023 FINDINGS: For purposes of this dictation, it is assumed that there are 5 non rib-bearing lumbar type vertebrae, and the most caudal fully segmented lumbar vertebra is labeled L5. ALIGNMENT: The lumbar spine demonstrates normal alignment without scoliosis or spondylolisthesis. BONES: Sclerosis is seen involving both SI joints with slight erosive changes on the left. DISCS: Postoperative changes affect the lower lumbar spine with hardware in place spanning L4-S1. No hardware complication LEVELS: Vacuum disc degeneration with mild posterior disc bulging present at L3-4. SOFT TISSUE: No soft tissue abnormalities. IMPRESSION: No acute lumbar spine abnormalities. Sclerosis is seen involving both SI joints with mild erosive changes on the left suggesting sacroilii tis. Postsurgical lower lumbar spine with hardware in place.
--- NOTE | 2024-06-16 08:02 | RAD REPORT ---
EXAM: CT pelvis without contrast HISTORY: Pelvic and hip pain [facility] MAIN lower back injury and fall Bed Name: 19 COMPARISON: 10/05/2023, 07/07/2023 TECHNIQUE: Multiple contiguous axial images were obtained and a CT of the pelvis without contrast. Sa gittal and coronal reformats were performed. FINDINGS: No pelvic fractures are seen. No fracture of either proximal femur is seen. Postsurgical c hanges lower lumbar spine with hardware in place. Significant sclerosis and slight erosion of the SI joint suggesting sacroiliitis. The visualized intrapelvic structures are unremarkable. Moderate fat-containing umbilical hernia. Mod erate stool retained throughout the colon. IMPRESSION: No evidence of hip or pelvic fracture.
--- NOTE | 2024-06-16 08:03 | RAD REPORT ---
EXAMINATION: XR RIGHT SHOULDER CLINICAL INDICATION: Male, 54 years old. RIGHT TECHNIQUE:Two view radiograph of the right shoulder were obtained. COMPARISON: No prior exam. FINDINGS: Mild AC joint and glenohumeral joint arthritic changes are present. No acute fracture or di slocation seen.
[2024-06-16] MEDS ORDERED: HYDROCODONE/APAP 7.5/325 MG TAB ONE (08:26)
--- NOTE | 2024-06-16 09:02 | EDPHYS ---
Physician Documentation [facility] Name: Parth Jerez Age: 54 yrs Sex: Male : 1970 Arrival Date: 06/16/2024 Time: 05:05 Bed 19 Private MD: Haseeb Horton HPI: 06/16 06:19 This 54 yrs old Male presents to ER via Ambulatory with complaints of Leg sp4 Pain, Low Back Pain, Shoulder Pain. 06:36 54-year-old male presents with lower back pain right shoulder pain after falling in the sp4 shower 2 days ago.. Historical: - Allergies: 05:37 NKDA; ss - PMHx: 05:37 Back pain; pleurisy; Pneumothorax; ss - PSHx: 05:37 back surgery; Cholecystectomy; hernia repair; left upper lung lobectomy; ss - Immunization history:: Client reports having NOT received the Covid vaccine. - Infectious Disease History:: Denies. - Social history:: Smoking status: Patient/guardian denies using tobacco, Stopped _ months ago .25. - Family history:: not pertinent. ROS: 06:36 Constitutional: Negative for fever, chills, and weight loss, positive lower back pain, sp4 positive left leg pain, positive pelvic pain, positive right shoulder pain 06:36 All other systems are negative, Exam: 07:20 Constitutional: This is a well developed, well nourished patient who is awake, alert, sp4 and in no acute distress. Head/Face: Normocephalic, atraumatic. Eyes: Pupils equal round and reactive to light, extra-ocular motions intact. Lids and lashes normal. Conjunctiva and sclera are not injected. Cornea within normal limits. Periorbital areas with no swelling, redness, or edema. ENT: Nares patent. No nasal discharge, no septal abnormalities noted. Tympanic membranes are normal and external auditory canals are clear. Oropharynx with no redness, swelling, or masses, exudates, or evidence of obstruction, uvula midline. Mucous membranes moist. Neck: Trachea midline, no thyromegaly or masses palpated, and no cervical lymphadenopathy. Supple, full range of motion without nuchal rigidity, or vertebral point tenderness. Chest/axilla: Normal chest wall appearance and motion. Nontender with no deformity. No lesions are appreciated. Cardiovascular: Regular rate and rhythm with a normal S1 and S2. No gallops, murmurs, or rubs. Normal PMI, no JVD. No pulse deficits. Respiratory: Lungs have equal breath sounds bilaterally, clear to auscultation and percussion. No rales, rhonchi or wheezes noted. No increased work of breathing, no retractions or nasal flaring. Abdomen/GI: Soft, with normal bowel sounds. No distension or tympany. No guarding or rebound. No evidence of tenderness throughout. Back: No spinal tenderness. No costovertebral tenderness. Skin: Warm, dry with normal turgor. Normal color with no rashes, no lesions, and no evidence of cellulitis. MS/ Extremity: Pulses equal, no cyanosis. Neurovascular intact. Full, normal range of motion. Neuro: Awake and alert, GCS 15, oriented to person, place, time, and situation. Cranial nerves II-XII grossly intact. Motor strength 5/5 in all extremities. Sensory grossly intact. Psych: Awake, alert, with orientation to person, place and time. Behavior, mood, and affect are within normal limits Vital Signs: 05:36 BP 128 / 81; Pulse 60; Resp 16; Temp 97.8(TE); Pulse Ox 98% on R/A; Weight 138.35 kg; ss Height 6 ft. 2 in. ; Pain 9/10; 06:22 BP 153 / 86; Pulse 58; Resp 18; Temp 98; Pulse Ox 98% on R/A; kj2 08:00 BP 148 / 78; Pulse 58; Resp 18; Temp 98; Pulse Ox 99% on R/A; ph 05:36 Body Mass Index 39.16 (138.35 kg, 187.96 cm) 05:36 Pain Scale: Adult ss Jerry Coma Score: 07:20 Eye Response: spontaneous(4). Motor Response: obeys commands(6). Verbal Response: sp4 oriented(5). Total: 15. MDM: 06:19 Patient medically screened. sp4 07:21 Differential diagnosis: dislocation, open fracture, closed fracture, contusion, sp4 abrasion, tendonitis. Data reviewed: vital signs, nurses notes, radiologic studies, CT scan, plain films. Consideration of Admission/Observation Escalation of care including admission/observation considered. Transition of care: After a detail discussion of the patient's case, care is transferred to Haseeb Nixon MD. 06/16 06:19 Order name: Urinalysis W/Microscopic; Complete Time: 09:01 sp4 06/16 06:35 Order name: CT Lumbar Spine Wo Con; Complete Time: 09:01 sp4 06/16 06:35 Order name: Pelvis Wo Cont CT; Complete Time: 09:01 sp4 06/16 06:37 Order name: Shoulder Right (2 View) XRAY; Complete Time: 09: sp4 Administered Medications: 07:09 Drug: Ketorolac IVP 30 mg IVP once Route: IVP; Site: right forearm; kj2 08:00 Follow up: Response: No adverse reaction ph 07:10 Drug: fentaNYL (PF) IVP 100 mcg IVP once Route: IVP; Site: right forearm; kj2 08:00 Follow up: Response: No adverse reaction; Anxiety decreased; RASS: Alert and Calm (0) ph 07:10 Drug: Methocarbamol PO 1500 mg PO once Route: PO; kj2 08:00 Follow up: Response: No adverse reaction ph 07:10 Drug: Promethazine PO 25 mg PO once Route: PO; kj2 08:00 Follow up: Response: No adverse reaction ph 09:05 Drug: Hydrocodone-Acetaminophen PO (7.5 mg-325 mg) 1 tabs PO once Route: PO; ll1 09:25 Follow up: Response: No adverse reaction; Pain is decreased; RASS: Alert and Calm (0) ph Disposition Summary: 06/16/24 09:01 Discharge Ordered Notes: Location: Home billy Problem: new billy Symptoms: have improved billy Condition: Stable billy Diagnosis - Fall on same level, unspecified billy - Low back pain billy - Pain in right shoulder billy - Contusion of right shoulder billy Followup: billy - With: Private Physician - When: 2 - 3 days - Reason: Recheck today's complaints, Continuance of care, Re-evaluation by your physician Discharge Instructions: - Discharge Summary Sheet billy - Acute Back Pain, Adult billy - Chronic Back Pain billy - Musculoskeletal Pain billy - Shoulder Pain billy - Shoulder Pain, [id number] billy - Chronic Back Pain, [id number] billy - Shoulder Sprain billy Forms: - Medication Reconciliation Form billy - Antibiotic Education billy - Prescription Opioid Use billy - Patient Portal Instructions billy - Leadership Thank You Letter billy Prescriptions: - acetaminophen-codeine 300-30 mg Oral tablet - take 2 tablet ORAL route every 6 hours as needed for pain; 20 tablet; Refills: billy 0, Product Selection Permitted - diclofenac sodium 50 mg Oral tablet, delayed release (enteric coated) - take 1 tablet ORAL route 3 times per day; 30 tablet; Refills: 0, Product [facility] Selection Permitted - methocarbamol 750 mg Oral tablet - take 2 tablet ORAL route 3 times per day for 5 days; 30 tablet; Refills: 0, [facility] Product Selection Permitted - Medrol (Carlos) 4 mg Oral Tablets, Dose Pack - take 1 tablet ORAL route as directed - follow package instructions; 1 packet; [facility] Refills: 0, Product Selection Permitted Signatures: Dispatcher [employer] EDHaseeb Yates MD MD cha Blanchard, Shelby, RN RN ss Dm Akers RN RN ll1 Cornelius Jovel MD MD sp4 Mercedes Rossi RN RN kj2 Monisha Romeo RN ph Corrections: (The following items were deleted from the chart) 09:07 09:01 Other dislocation of right shoulder joint billy cervantes
--- NOTE | 2024-06-16 09:02 | ER ---
Nurse's Notes [facility] Name: Parth Jerez Age: 54 yrs Sex: Male : 1970 Arrival Date: 06/16/2024 Time: 05:05 Bed 19 Private MD: Diagnosis: Fall on same level, unspecified;Low back pain;Pain in right shoulder;Contusion of right shoulder Presentation: 06/16 05:36 Chief complaint: Patient states: Fell while getting out of the shower two nights ago ss and now c/o pain to L lower back and R shoulder. Coronavirus screen: Client denies travel out of the [place] in the last 14 days. Ebola Screen: Patient denies exposure to infectious person. Patient denies travel to an Ebola-affected area in the 21 days before illness onset. Initial Sepsis Screen: Does the patient meet any 2 criteria? No. Patient's initial sepsis screen is negative. Does the patient have a suspected source of infection? No. Patient's initial sepsis screen is negative. Risk Assessment: Do you want to hurt yourself or someone else? Patient reports no desire to harm self or others. Onset of symptoms was June 14, 2024. 05:36 Method Of Arrival: Ambulatory ss 05:36 Acuity: [place]MEN[place] 3 ss Triage Assessment: 05:37 General: Appears in no apparent distress. Behavior is calm, cooperative. Pain: ss Complains of pain in L lower back, R shoulder Pain currently is 9 out of 10 on a pain scale. Respiratory: Airway is patent Respiratory effort is even, unlabored, Respiratory pattern is regular, symmetrical. Derm: Skin is pink, warm \T\ dry. normal. Historical: - Allergies: 05:37 NKDA; ss - PMHx: 05:37 Back pain; pleurisy; Pneumothorax; ss - PSHx: 05:37 back surgery; Cholecystectomy; hernia repair; left upper lung lobectomy; ss - Immunization history:: Client reports having NOT received the Covid vaccine. - Infectious Disease History:: Denies. - Social history:: Smoking status: Patient/guardian denies using tobacco, Stopped _ months ago .25. - Family history:: not pertinent. Screenin:25 [facility] ED Fall Risk Assessment (Adult) History of falling in the last 3 months, kj2 including since admission No falls in past 3 months (0 pts) Confusion or Disorientation No (0 pts) Intoxicated or Sedated No (0 pts) Impaired Gait No (0 pts) Mobility Assist Device Used No (0 pt) Altered Elimination No (0 pt) Score/Fall Risk Level 0 - 2 = Low Risk Maintained a safe environment, Hourly rounding (assess needs \T\ fall precautionary measures) done. Abuse screen: Denies threats or abuse. Denies injuries from another. Nutritional screening: No deficits noted. Tuberculosis screening: No symptoms or risk factors identified. Assessment: 06:23 General: Appears in no apparent distress. uncomfortable, Behavior is calm, cooperative. kj2 Pain: Complains of pain in right shoulder. Pain: Pain currently is 9 out of 10 on a pain scale. Neuro: Level of Consciousness is awake, alert, Oriented to person, place, time, situation. Cardiovascular: Patient's skin is warm and dry. Respiratory: Airway is patent Respiratory effort is even, unlabored. GI: No signs and/or symptoms were reported involving the gastrointestinal system. : No signs and/or symptoms were reported regarding the genitourinary system. 07:32 Reassessment: Patient appears in no apparent distress at this time. Patient and/or ph family updated on plan of care and expected duration. Pain level reassessed. Patient is alert, oriented x 3, equal unlabored respirations, skin warm/dry/pink. Pt ambulatory to restroom w/ cane, steady gait noted. 08:30 Reassessment: Patient appears in no apparent distress at this time. Patient and/or ph family updated on plan of care and expected duration. Pain level reassessed. Patient is alert, oriented x 3, equal unlabored respirations, skin warm/dry/pink. Vital Signs: 05:36 BP 128 / 81; Pulse 60; Resp 16; Temp 97.8(TE); Pulse Ox 98% on R/A; Weight 138.35 kg; ss Height 6 ft. 2 in. ; Pain 9/10; 06:22 BP 153 / 86; Pulse 58; Resp 18; Temp 98; Pulse Ox 98% on R/A; kj2 08:00 BP 148 / 78; Pulse 58; Resp 18; Temp 98; Pulse Ox 99% on R/A; ph 05:36 Body Mass Index 39.16 (138.35 kg, 187.96 cm) ss 05:36 Pain Scale: Adult ss Wiggins Coma Score: 07:20 Eye Response: spontaneous(4). Motor Response: obeys commands(6). Verbal Response: sp4 oriented(5). Total: 15. ED Course: 05:08 Patient arrived in ED. jj6 05:37 Triage completed. ss 05:37 Arm band placed on left wrist. ss 06:12 Mercedes Rossi RN is Primary Nurse. kj2 06:19 Cornelius Jovel MD is Attending Physician. sp4 06:25 Patient has correct armband on for positive identification. Bed in low position. Call kj2 light in reach. Provided Education on: call light, fall precautions. 06:26 No provider procedures requiring assistance completed. kj2 06:50 Inserted saline lock: 22 gauge in right antecubital area, using aseptic technique. oe Flushed with 10 mL NS. 07:00 Shoulder Right (2 View) XRAY In Process Unspecified. EDMS 07:30 CT Lumbar Spine Wo Con In Process Unspecified. EDMS 07:[address] In Process Unspecified. EDMS 07:42 Attending Physician role handed off by Cornelius Jovel MD billy 07:42 Haseeb Nixon MD is Attending Physician. billy 09:15 IV discontinued, intact, bleeding controlled, No redness/swelling at site. Pressure ph dressing applied. 09:19 Primary Nurse role handed off by Mercedes Rossi RN ph 09:19 Monisha Romeo RN is Primary Nurse. ph Administered Medications: 07:09 Drug: Ketorolac IVP 30 mg IVP once Route: IVP; Site: right forearm; kj2 08:00 Follow up: Response: No adverse reaction ph 07:10 Drug: fentaNYL (PF) IVP 100 mcg IVP once Route: IVP; Site: right forearm; kj2 08:00 Follow up: Response: No adverse reaction; Anxiety decreased; RASS: Alert and Calm (0) ph 07:10 Drug: Methocarbamol PO 1500 mg PO once Route: PO; kj2 08:00 Follow up: Response: No adverse reaction ph 07:10 Drug: Promethazine PO 25 mg PO once Route: PO; kj2 08:00 Follow up: Response: No adverse reaction ph 09:05 Drug: Hydrocodone-Acetaminophen PO (7.5 mg-325 mg) 1 tabs PO once Route: PO; ll1 09:25 Follow up: Response: No adverse reaction; Pain is decreased; RASS: Alert and Calm (0) ph Medication: 06:48 VIS not applicable for this client. kj2 Outcome: 09:01 Discharge ordered by . billy 09:19 Patient left the ED. ph 09:19 Discharged to home ambulatory, ph 09:19 Condition: good 09:19 Discharge instructions given to patient, Instructed on discharge instructions, follow up and referral plans. medication usage, Demonstrated understanding of instructions, follow-up care, medications, Prescriptions given X 3, Signatures: Dispatcher [employer] EDMS Haseeb Nixon MD MD cha Blanchard, Shelby, RN RN Monisha Romeo RN RN Edwar Ang Lynsay, RN RN ll1 Anastasiya Bates Sergey, MD MD sp4 Mercedes Rossi RN RN kj2
[2024-06-16 09:39] VITALS: O2SAT 98
[2024-06-16 09:42] VITALS: BP 128/81; TEMP 97.8
== END 2024-06-16 09:19 | disposition home or self-care (01) ==
LOC: ER 05:05
DX: M54.50 Low back pain, unspecified (principal); M25.511 Pain in right shoulder; S40.011A Contusion of right shoulder, initial encounter; W18.30XA Fall on same level, unspecified, initial encounter
CPT/HCPCS: 72131; 72192; 81001; 96374; 96375; 99284; J3010; Q0169